=== PATIENT | male | born 1970 | race Caucasian/White ===

== ENCOUNTER 2016-11-03 20:53 | Emergency (ER) | payer MEDICAID, OTHER ==
[2016-11-03 21:00] VITALS: RESP 14
[2016-11-03] MEDS ORDERED: LIDOCAINE 5% 1 EA PATCH TD ONE ×2 (21:45→21:59)
[2016-11-03] MEDS ORDERED: KETOROLAC 30 MG/1 ML SDV IM ONE (21:48)
--- NOTE | 2016-11-03 21:49 | EDPHY ---
H & P Stated Complaint: "sciatica is really kicking my ass" Time Seen by Provider: 11/03/16 21:38 HPI/ROS: Chief complaint: Sciatica History of present illness: This is a 45-year-old male who presents to the emergency department reporting sciatic pain. Patient reports he has suffered from this pain for a long time, he states for the last 6 months constantly although he has had past episodes as well. He states it is persistent and he is essentially getting tired of living with it. He states a friend had similar symptoms and came to the emergency room and got steroid injections and was placed on 6 months of steroids and his problem resolved. He would like the same treatment. He denies new precipitating factors such as trauma. He denies other associated signs or symptoms including no fevers or chills, no neurologic symptoms such as paresthesias, weakness or paralysis or bowel or bladder dysfunction. Again this has been going on for 6 months. Review of systems: A 10 point review of systems was obtained and other than described above was negative - Personal History Current Tetanus/Diphtheria Vaccine: Yes - Medical/Surgical History Hx Asthma: No Hx Chronic Respiratory Disease: No Hx Diabetes: No Hx Cardiac Disease: No Hx Renal Disease: No Hx Cirrhosis: No Hx Alcoholism: No Hx HIV/AIDS: Yes Hx Splenectomy or Spleen Trauma: No Other PMH: PMHx: ABD CANCER, ABD SURG, PE, HIV. PSHx: - Social History Smoking Status: Light smoker - Physical Exam Exam: General Appearance: Alert, nontoxic. Eyes: Pupils equal and round no pallor or injection. ENT, Mouth: Mucous membranes moist. Respiratory: There are no retractions, lungs are clear to auscultation. Cardiovascular: Regular rate and rhythm. Gastrointestinal: Abdomen is soft and non tender, no masses, bowel sounds normal. Neurological: Alert and oriented x4. Cranial nerves 2-12 grossly intact. Strength and sensation intact and symmetrical. Straight leg raise test is negative bilaterally. Patient is ambulating well. Skin: Warm and dry, no rashes. Musculoskeletal: Neck is supple non tender. Extremities are symmetrical, full range of motion. Psychiatric: Patient is oriented X 3, there is no agitation. Constitutional: Initial Vital Signs Temperature (C) 36.7 C 11/03/16 20:54 Heart Rate 93 11/03/16 20:54 Respiratory Rate 14 11/03/16 20:54 Blood Pressure 110/67 11/03/16 20:54 O2 Sat (%) 96 11/03/16 20:54 O2 Delivery Mode Room Air Allergies/Adverse Reactions: cefepime Allergy (Unknown, Verified 04/24/16 15:04) Cephalosporins Allergy (Unknown, Verified 04/24/16 15:04) Unknown cat dander Allergy (Verified 11/03/16 20:57) tramadol Allergy (Verified 04/24/16 15:04) Home Medications: Medication Instructions Recorded NK [No Known Home Meds] 11/03/16 Medical Decision Making ED Course/Re-evaluation: Patient seen under the supervision of my secondary supervising physician Dr. Shreyas Gonzales. Patient presents to the emergency department for what he describes as sciatica. He has had symptoms for 6 months. He is nontoxic. Vital signs are stable. Physical exam is benign including a nonfocal neurologic exam. He is requesting steroid injections and oral steroids. I have discussed we do not do steroid injections in the emergency room and I do not believe oral steroids are indicated at this time. Symptomatic care is discussed, I have offered him Toradol and a lidocaine patch and he has accepted these. He does have a primary care doctor, he has not followed up with her for this problem as of yet. He is asked to follow up with her for further evaluation and care. Return precautions are given. Differential Diagnosis: Included but not limited to sciatica, herniated intervertebral disc, bony fracture, unlikely spinal cord abscess or cauda equina syndrome given nonfocal neurologic exam and length of time symptoms persist - Data Points Medications Given: Discontinued Medications Ketorolac Tromethamine (Toradol) 30 mg IM EDNOW ONE Stop: 11/03/16 21:49 Last Admin: 11/03/16 22:01 Dose: 30 mg Lidocaine (Lidoderm 5%) 1 ea TD EDNOW ONE Stop: 11/03/16 21:46 Last Admin: 11/03/16 22:01 Dose: 1 ea Departure - Departure Disposition: Home, Routine, Self-Care Clinical Impression: Sciatica Qualifiers: Laterality: bilateral Qualified Code(s): M54.31 - Sciatica, right side; M54.32 - Sciatica, left side Condition: Good Instructions: Sciatica (ED) Additional Instructions: Follow-up with your primary care doctor for continued evaluation and care If symptoms worsen or new symptoms develop return to the emergency room for recheck Referrals: Skyla Meneses MD [Primary Care Provider] - As per Instructions
[2016-11-03 22:02] VITALS: BP 130/78; PULSE 80; TEMP 98.4; O2SAT 94
[2016-11-04] MEDS ORDERED: PATCH REMOVAL 1 EA PATCH TD SCH (21:00)
== END 2016-11-03 22:01 | disposition home or self-care (01) ==
DX: M54.31 Sciatica, right side (principal); M54.32 Sciatica, left side; F17.200 Nicotine dependence, unspecified, uncomplicated; B20 Human immunodeficiency virus [HIV] disease; Z85.028 Personal history of other malignant neoplasm of stomach
CPT/HCPCS: J1885

== ENCOUNTER 2016-12-31 17:24 | Emergency (ER) | payer MEDICAID ==
--- NOTE | 2016-12-31 17:42 | EDPHY ---
H & P Stated Complaint: Sore on L knee x 1 wk; past hx MRSA (not recent) HPI/ROS: HPI CHIEF COMPLAINT: Possible left skin knee infection HISTORY OF PRESENT ILLNESS: This patient is a 38-year-old male significant past medical for HIV, tells me he has been off his HIV medication for approximately a year. When I asked him what his CD4 and viral load count is he tells me "I am good man, I am good" patient presents emergency room with a erythema lesion to the left lateral knee. He denies any joint pain or knee pain or swelling. It is localized to the left lateral knee skin region. There is erythema and fluctuance. This appears to be a very small abscess. Denies fever. Denies any pain. States he would like antibiotics and I and D. Past Medical History: HIV unknown viral load or CD4 count off medications for 1 year. History of MRSA infection Past Surgical History: Denies recent surgery Social History: Denies daily use of drugs alcohol tobacco products. Family History: Noncontributory ROS REVIEW OF SYSTEMS: A comprehensive 10 point review of systems is otherwise negative aside from elements mentioned in the history of present illness. Exam Constitutional appears well nontoxic, thin appearing, triage nursing summary reviewed, vital signs reviewed, awake/alert. Eyes normal conjunctivae and sclera, EOMI, PERRLA. HENT normal inspection, atraumatic, moist mucus membranes, no epistaxis, neck supple/ no meningismus, no raccoon eyes. Respiratory clear to auscultation bilaterally, normal breath sounds, no respiratory distress, no wheezing. Cardiovascular rate normal, regular rhythm, no murmur, no edema, distal pulses normal. Gastrointestinal soft, non-tender, no rebound, no guarding, normal bowel sounds, no distension, no pulsatile mass. Genitourinary no CVA tenderness. Musculoskeletal no midline vertebral tenderness, full range of motion, no calf swelling, no tenderness of extremities, no meningismus, good pulses, neurovascularly intact. Skin left lateral knee there is an area of fluctuance 2 cm x 2 cm, no significant warmth, no significant pain with range of motion left knee, this is superficial in the skin. Neurologic awake, alert and oriented x 3, AAOx3, moves all 4 extremities equally, motor intact, sensory intact, CN II-XII intact, normal cerebellar, normal vision, normal speech. Psychiatric normal mood/affect. Heme/Lymph/Immune no lymphadenopathy. Differential Diagnosis: Includes but is not limited to in a particular order MRSA infection, strep infection, staph infection, abscess Medical Decision Making: Plan for this patient I and D, started on Bactrim warm compresses. He understands to return emergency room if there is any worsening symptoms this includes worsening redness, pain, fever questions or concerns. Placed on Bactrim continue Bactrim outpatient. Has cephalosporin allergy. Source: Patient - Personal History Current Tetanus Diphtheria and Acellular Pertussis (TDAP): Yes - Medical/Surgical History Hx Asthma: No Hx Chronic Respiratory Disease: No Hx Diabetes: No Hx Cardiac Disease: No Hx Renal Disease: No Hx Cirrhosis: No Hx Alcoholism: No Hx HIV/AIDS: Yes Hx Splenectomy or Spleen Trauma: No Other PMH: PMHx: Stomach CANCER, ABD SURG, PE, HIV. - Social History Smoking Status: Current every day smoker Constitutional: Initial Vital Signs Temperature (C) 36.8 C 12/31/16 17:26 Heart Rate 85 12/31/16 17:26 Respiratory Rate 18 12/31/16 17:26 Blood Pressure 105/67 12/31/16 17:26 O2 Sat (%) 97 12/31/16 17:26 O2 Delivery Mode Room Air Allergies/Adverse Reactions: cefepime Allergy (Unknown, Verified 12/31/16 17:26) Cephalosporins Allergy (Unknown, Verified 12/31/16 17:26) Unknown tramadol Allergy (Unknown, Verified 12/31/16 17:26) cat dander Allergy (Verified 12/31/16 17:26) Home Medications: Medication Instructions Recorded Sulfamethox/Tmp 800/160 mg 1 tab PO BID@1000,2200 #14 tab 12/31/16 [Bactrim Ds] Departure - Departure Disposition: Home, Routine, Self-Care Clinical Impression: Abscess Condition: Good Instructions: Abscess (ED) Additional Instructions: 1.Warm compresses 3 times a day. 2. Take antibiotics as prescribed. 3. Watch for further signs of worsening infection this includes worsening redness, pain, swelling, fever or any questions or concerns. Referrals: Skyla Meneses MD [Primary Care Provider] - As per Instructions Prescriptions: Sulfamethox/Tmp 800/160 mg [Bactrim Ds] 1 tab PO BID@1000,2200 #14 tab
[2016-12-31] MEDS ORDERED: SULFAMETHOX/TMP 800/160 MG 1 TAB PO ONE (17:47)
[2016-12-31 18:32] VITALS: BP 108/58; PULSE 80; RESP 16; TEMP 98.1; O2SAT 94
== END 2016-12-31 18:32 | disposition home or self-care (01) ==
PROC: 0H9LXZZ Drainage of Left Lower Leg Skin, External Approach (ICD-10-PCS; principal; 2016-12-31)
DX: L02.416 Cutaneous abscess of left lower limb (principal); B20 Human immunodeficiency virus [HIV] disease; F17.200 Nicotine dependence, unspecified, uncomplicated; Z85.028 Personal history of other malignant neoplasm of stomach

== ENCOUNTER 2017-02-04 12:31 | Emergency (ER) | payer MEDICAID ==
[2017-02-04 12:37] VITALS: TEMP 98.6
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
[2017-02-04 17:12] VITALS: BP 128/79; PULSE 81; RESP 16; O2SAT 96
== END 2017-02-04 17:12 | disposition home or self-care (01) ==
DX: S80.12XA Contusion of left lower leg, initial encounter (principal); F17.200 Nicotine dependence, unspecified, uncomplicated; B20 Human immunodeficiency virus [HIV] disease; Z85.028 Personal history of other malignant neoplasm of stomach; V18.0XXA Pedal cycle driver injured in noncollision transport accident in nontraffic accident, initial encounter; Y92.410 Unspecified street and highway as the place of occurrence of the external cause; Y99.8 Other external cause status; Y93.55 Activity, bike riding

== ENCOUNTER 2017-02-09 20:39 | Emergency (ER) | payer MEDICAID ==
[2017-02-09 21:01] VITALS: TEMP 98.2; O2SAT 98
[2017-02-09] MEDS ORDERED: VANCOMYCIN HCL/NORMAL SALINE 250 ML IV ONE (22:30)
--- NOTE | 2017-02-09 22:35 | EDPHY ---
H & P Stated Complaint: rt eye swelling and redness possible bug bite Time Seen by Provider: 02/09/17 22:16 HPI/ROS: HPI The patient presents with right-sided facial pain and swelling which began yesterday. He thought he had a spider bite. He was able to drain it and some pus came out. He was feeling better today. He took a nap this evening and when he awoke the swelling of his right face was worse. He does not have any fevers or chills. He does not have any nausea or vomiting. He has a history of HIV aids, he does not know his last CD4 viral loads and thinks they were checked maybe about a year ago. He has not been on anti-retroviral therapy for about 1 year. He does have a history of MR . He does not have any pain with extraocular movements. REVIEW OF SYSTEMS Constitutional: No fever, no chills. Eyes: No discharge. ENT: No sore throat. Cardiovascular: No chest pain, no palpitations. Respiratory: No cough, no shortness of breath. Gastrointestinal: No abdominal pain, no vomiting. Genitourinary: No hematuria. Musculoskeletal: No back pain. Skin: No rashes. Neurological: No headache. PMHx: HIV/AIDS is followed by infectious disease Soc Hx: Denies IV drug use PHYSICAL General Appearance: Alert, no distress Eyes: Pupils equal and round no pallor or injection, periorbital edema, extraocular movements are full, no proptosis. ENT, Mouth: Right cheek with induration and edema with redness which is tender to palpation throughout the cheek. Respiratory: Breathing comfortably Neurological: A&O, moves all extremities Skin: Warm and dry, no rashes Musculoskeletal: Neck is supple non tender Extremities: symmetrical, full range of motion Psychiatric: Patient is oriented X 3, there is no agitation Source: Patient Exam Limitations: No limitations - Personal History Current Tetanus/Diphtheria Vaccine: Yes - Medical/Surgical History Hx Asthma: No Hx Chronic Respiratory Disease: No Hx Diabetes: No Hx Cardiac Disease: No Hx Renal Disease: No Hx Cirrhosis: No Hx Alcoholism: No Hx HIV/AIDS: Yes Hx Splenectomy or Spleen Trauma: No Other PMH: PMHx: Stomach CANCER, ABD SURG, PE, HIV. - Social History Smoking Status: Current every day smoker Constitutional: Initial Vital Signs Temperature (C) 36.8 C 02/09/17 20:58 Heart Rate 84 02/09/17 20:58 Respiratory Rate 18 02/09/17 20:58 Blood Pressure 106/67 02/09/17 20:58 O2 Sat (%) 98 02/09/17 20:58 O2 Delivery Mode Room Air Allergies/Adverse Reactions: cefepime Allergy (Unknown, Verified 12/31/16 17:26) Cephalosporins Allergy (Unknown, Verified 12/31/16 17:26) Unknown tramadol Allergy (Unknown, Verified 12/31/16 17:26) cat dander Allergy (Verified 12/31/16 17:26) Home Medications: Medication Instructions Recorded Ibuprofen 600 mg PO Q6 #15 tablet 02/04/17 Doxycycline 100 mg Prepack#2 1 btl TAKEHOME EDNOW #1 btl 02/09/17 [Vibramycin 100 mg Prepack#2] Doxycycline Hyclate 100 mg PO BID 10 Days #20 tab 02/09/17 Medical Decision Making Procedures: Bedside skin and soft tissue facial Ultrasound- performed and interpreted by me. Indication: Facial swelling Findings: Cobblestoning without any localized fluid collection, no foreign body visualized Impression: Facial cellulitis without abscess Differential Diagnosis: This is a 46-year-old male with history of HIV AIDS who presents from home with 2 days of right cheek swelling with erythema and pain, getting progressively worse. Differential diagnosis includes facial cellulitis, facial abscess, orbital cellulitis, periorbital cellulitis. Given with no proptosis, pain with extraocular movements, I do not feel imaging with CT scan is required at this time. Because of his history of MR and HIV, I will give him vancomycin IV here. Labs were checked and were relatively unremarkable. Difficult to interpret white blood cell count given his HIV. As I will discharge him with doxycycline for presumed MRSA skin infection. I will ask him to follow up with [facility] or primary care in 1-2 days for a wound check. - Data Points Laboratory Results: Laboratory Results 02/09/17 22:55 02/09/17 22:55 02/09/17 02/09/17 22:55 22:55 WBC 4.25 10^3/uL 10^3/uL (3.80-9.50) RBC 3.91 10^6/uL L 10^6/uL (4.40-6.38) Hgb 12.2 g/dL L g/dL (13.7-17.5) Hct 35.7 % L % (40.0-51.0) MCV 91.3 fL fL (81.5-99.8) MCH 31.2 pg pg (27.9-34.1) MCHC 34.2 g/dL g/dL (32.4-36.7) RDW 14.0 % % (11.5-15.2) Plt Count 144 10^3/uL L 10^3/uL (150-400) MPV 10.5 fL fL (8.7-11.7) Neut % (Auto) 52.5 % % (39.3-74.2) Lymph % (Auto) 27.5 % % (15.0-45.0) [place] % (Auto) 8.7 % % (4.5-13.0) Eos % (Auto) 10.6 % H % (0.6-7.6) Baso % (Auto) 0.5 % % (0.3-1.7) Nucleat RBC Rel Count 0.0 % % (0.0-0.2) Absolute Neuts (auto) 2.23 10^3/uL 10^3/uL (1.70-6.50) Absolute Lymphs (auto) 1.17 10^3/uL 10^3/uL (1.00-3.00) Absolute Monos (auto) 0.37 10^3/uL 10^3/uL (0.30-0.80) Absolute Eos (auto) 0.45 10^3/uL H 10^3/uL (0.03-0.40) Absolute Basos (auto) 0.02 10^3/uL 10^3/uL (0.02-0.10) Absolute Nucleated RBC 0.00 10^3/uL 10^3/uL (0-0.01) Immature Gran % 0.2 % % (0.0-1.1) Immature Gran # 0.01 10^3/uL 10^3/uL (0.00-0.10) Sodium 138 mEq/L mEq/L (134-144) Potassium 3.8 mEq/L mEq/L (3.5-5.2) Chloride 105 mEq/L mEq/L (97-110) Carbon Dioxide 23 mEq/l mEq/l (22-31) Anion Gap 10 mEq/L mEq/L (8-16) BUN 13 mg/dL mg/dL (7-23) Creatinine 0.7 mg/dL mg/dL (0.7-1.3) Estimated GFR > 60 Glucose 84 mg/dL mg/dL (70-100) Calcium 8.7 mg/dL mg/dL (8.5-10.4) Total Bilirubin 0.4 mg/dL mg/dL (0.1-1.4) AST 30 IU/L IU/L (17-59) ALT 30 IU/L IU/L (21-72) Alkaline Phosphatase 83 IU/L IU/L (38-126) Total Protein 7.8 g/dL g/dL (6.3-8.2) Albumin 3.5 g/dL g/dL (3.5-5.0) Medications Given: Discontinued Medications Vancomycin/Sodium Chloride (Vancomycin 1 Gm (Premix)) 250 mls @ 250 mls/hr IV EDNOW ONE PRN Reason: Protocol Stop: 02/09/17 23:29 Last Admin: 02/09/17 22:50 Dose: 250 mls Departure - Departure Disposition: Home, Routine, Self-Care Clinical Impression: Facial cellulitis Condition: Good Instructions: Cellulitis (ED), Doxycycline (By mouth) Additional Instructions: Please return to the emergency room if you develop a fever, worsening redness or swelling of your face or any difficulty looking to the left or right. Otherwise, I would like for you to follow up with your primary care doctor or infectious disease in 1-2 days for a wound check. You should take the doxycycline 100 mg twice a day for 10 days. Referrals: Skyla Meneses MD [Primary Care Provider] - As per Instructions Prescriptions: Doxycycline 100 mg Prepack#2 [Vibramycin 100 mg Prepack#2] 1 btl TAKEHOME EDNOW #1 btl Doxycycline Hyclate 100 mg PO BID 10 Days #20 tab
[2017-02-09 23:08] LABS: % IMMATURE GRANULYOCYTES 0.2 % (0.0-1.1); ABSOLUTE IMMATURE GRANULOCYTES 0.01 10^3/uL (0.00-0.10); ADD DIFF? NO; ADD MORPH? NO; ADD SCAN? NO; ATYPICAL LYMPHOCYTE FLAG 60 (0-99); FRAGMENT RBC FLAG 0 (0-99); HEMATOCRIT 35.7 % (40.0-51.0); HEMOGLOBIN 12.2 g/dL (13.7-17.5); LEFT SHIFT FLG 0 (0-99); LIPEMIA HEMOLYSIS FLAG 90 (0-99); MEAN CELL HEMOGLOBIN 31.2 pg (27.9-34.1); MEAN CELL HEMOGLOBIN CONCENTR. 34.2 g/dL (32.4-36.7); MEAN CELL VOLUME 91.3 fL (81.5-99.8); MEAN PLATELET VOLUME 10.5 fL (8.7-11.7); PLATELET CLUMPS FLAG 10 (0-99); PLATELET COUNT 144 10^3/uL (150-400); RED BLOOD CELL COUNT 3.91 10^6/uL (4.40-6.38)
[2017-02-09 23:19] LABS: ALANINE AMINOTRANSFERASE 30 IU/L (21-72); ALBUMIN 3.5 g/dL (3.5-5.0); ALKALINE PHOSPHATASE 83 IU/L (38-126); ANION GAP 10 mEq/L (8-16); ASPARTATE AMINOTRANSFERASE 30 IU/L (17-59); BILIRUBIN,TOTAL 0.4 mg/dL (0.1-1.4); CALCIUM 8.7 mg/dL (8.5-10.4); CARBON DIOXIDE 23 mEq/l (22-31); CHLORIDE 105 mEq/L (97-110); CREATININE 0.7 mg/dL (0.7-1.3); GLOMERULAR FILTRATION RATE > 60; GLUCOSE 84 mg/dL (70-100); POTASSIUM 3.8 mEq/L (3.5-5.2); SODIUM 138 mEq/L (134-144); TOTAL PROTEIN 7.8 g/dL (6.3-8.2)
[2017-02-09] MEDS ORDERED: DOXYCYCLINE 100 MG PREPACK#2 BTL TAKEHOME ONE (23:44)
[2017-02-10] MEDS ORDERED: DOXYCYCLINE 100 MG PREPACK#2 BTL TAKEHOME ONE (00:38)
[2017-02-10 00:53] VITALS: BP 116/85; PULSE 83; RESP 16
== END 2017-02-10 01:00 | disposition home or self-care (01) ==
DX: L03.211 Cellulitis of face (principal); F17.200 Nicotine dependence, unspecified, uncomplicated; Z85.028 Personal history of other malignant neoplasm of stomach; Z21 Asymptomatic human immunodeficiency virus [HIV] infection status
CPT/HCPCS: 96365; 96366; J3370

== ENCOUNTER 2017-02-21 15:33 | Inpatient (IN) | payer MEDICAID ==
[2017-02-21] MEDS ORDERED: VANCOMYCIN HCL/NORMAL SALINE 250 ML IV ONE (16:17)
[2017-02-21] MEDS ORDERED: NS 1,000 ML IV ONE (16:18)
[2017-02-21 16:48] LABS: % IMMATURE GRANULYOCYTES 0.7 % (0.0-1.1); ABSOLUTE IMMATURE GRANULOCYTES 0.03 10^3/uL (0.00-0.10); ADD DIFF? NO; ADD MORPH? NO; ADD SCAN? NO; ATYPICAL LYMPHOCYTE FLAG 40 (0-99); FRAGMENT RBC FLAG 0 (0-99); HEMOGLOBIN 12.9 g/dL (13.7-17.5); LEFT SHIFT FLG 0 (0-99); LIPEMIA HEMOLYSIS FLAG 90 (0-99); MEAN CELL HEMOGLOBIN 31.3 pg (27.9-34.1); MEAN CELL HEMOGLOBIN CONCENTR. 33.9 g/dL (32.4-36.7); MEAN CELL VOLUME 92.2 fL (81.5-99.8); MEAN PLATELET VOLUME 10.9 fL (8.7-11.7); PLATELET CLUMPS FLAG 0 (0-99); PLATELET COUNT 172 10^3/uL (150-400); RED BLOOD CELL COUNT 4.12 10^6/uL (4.40-6.38); RED CELL DISTRIBUTION WIDTH 14.1 % (11.5-15.2)
[2017-02-21 16:59] LABS: ANION GAP 14 mEq/L (8-16); BILIRUBIN,TOTAL 0.4 mg/dL (0.1-1.4); CALCIUM 9.3 mg/dL (8.5-10.4); CARBON DIOXIDE 22 mEq/l (22-31); CHLORIDE 102 mEq/L (97-110); CREATININE 0.9 mg/dL (0.7-1.3); GLOMERULAR FILTRATION RATE > 60; GLUCOSE 146 mg/dL (70-100); SODIUM 138 mEq/L (134-144)
--- NOTE | 2017-02-21 17:03 | EDPHY ---
H & P Stated Complaint: skin irritation/infection face and legs Time Seen by Provider: 02/21/17 16:05 HPI/ROS: CHIEF COMPLAINT: sent by Infectious Disease for admit HISTORY OF PRESENT ILLNESS: 46-year-old male past medical history of HIV/aids presents to the emergency department sent from the Infectious Disease clinic where patient had an ER follow up visit today. Pt was seen in the ED a few days ago for a facial cellulitis. Pt yesterday squeezed a lesion on his left groin and woke up today with increased pain, swelling, redness. Pt denies fevers or chills. He reports a productive cough x 3 days with shortness of breath. No chest pain. Pt reports multiple lesions to groin and buttocks. Last viral load and CD 4 count over a year ago per patient. He has not taken antivirals x 1 year. Pt reports oral thrush x 5 months. No abdominal pain, nausea, vomiting, diarrhea. Pt uses marijuana daily. Reports no cocaine for over 1 year, denies other drugs aside from taking an occasional adderall. Pt complains of severe right hip pain x 1 year with pain down both legs. No loss of control of his bowel or bladder is, denies saddle anesthesias. REVIEW OF SYSTEMS: A comprehensive 10 point review of systems is otherwise negative aside from elements mentioned in the history of present illness. Source: Patient, RN/MD, Old records Exam Limitations: No limitations - Personal History Current Tetanus/Diphtheria Vaccine: Yes - Medical/Surgical History Hx Asthma: No Hx Chronic Respiratory Disease: No Hx Diabetes: No Hx Cardiac Disease: No Hx Renal Disease: No Hx Cirrhosis: No Hx Alcoholism: No Hx HIV/AIDS: Yes Hx Splenectomy or Spleen Trauma: No Other PMH: PMHx: Stomach CANCER, ABD SURG, PE, HIV. - Social History Smoking Status: Current every day smoker Drug Use: Marijuana - Physical Exam Exam: Physical Exam Gen: Alert and Oriented, NAD HEENT: PERRL, EOMI without tenderness, dry mucous membranes, posterior pharynx with mild erythema, thrush to tongue NECK: no meningismus CV: regular rate and regular rhythm PULM: CTAB, no wheezes ABDOMEN: soft, non tender to palpation, BS present BACK: No CVA tenderness NEURO: Neurologically grossly intact EXTREMITIES: normal appearing SKIN: lesion to right zygoma with erythema and induration. Left groin with swelling, induration, erythema. Multiple lesions to posterior thighs and buttocks. No scrotal swelling, erythema or tenderness PSYCH: answers questions appropriately. Constitutional: Initial Vital Signs Temperature (C) 37 C 02/21/17 15:36 Heart Rate 95 02/21/17 15:36 Respiratory Rate 18 02/21/17 15:36 Blood Pressure 90/56 L 02/21/17 15:36 O2 Sat (%) 94 02/21/17 15:36 O2 Delivery Mode Room Air Allergies/Adverse Reactions: cefepime Allergy (Unknown, Verified 02/21/17 15:35) Cephalosporins Allergy (Unknown, Verified 02/21/17 15:35) Unknown tramadol Allergy (Unknown, Verified 02/21/17 15:35) cat dander Allergy (Verified 02/21/17 15:35) Home Medications: Medication Instructions Recorded NK [No Known Home Meds] 02/21/17 Medical Decision Making - Diagnostics Imaging Results: Imaging Impressions Chest X-Ray 02/21/17 16:57 Impression: 1. Mild peribronchial cuffing in the perihilar region bilaterally. Findings are nonspecific but can be seen with bronchitis, viral process, or reactive airways disease. 2. Stable hyperexpanded lungs. This could be from air trapping versus increased inspiratory effort. ED Course/Re-evaluation: IV established, CBC, chemistry lactic bilirubin cultures and sputum cultures obtained. Chest x-ray and right hip xray ordered. Vancomycin ordered per infectious disease request. I have spoken with the hospitalist about admission , infectious disease also spoke directly with the hospitalist about this patient. Labs are unremarkable, xrays reports are pending upon admission to hospital. - Data Points Laboratory Results: Laboratory Results 02/21/17 16:39 02/21/17 16:39 02/21/17 02/21/17 02/21/17 16:39 16:39 16:39 WBC 4.51 10^3/uL 10^3/uL (3.80-9.50) RBC 4.12 10^6/uL L 10^6/uL (4.40-6.38) Hgb 12.9 g/dL L g/dL (13.7-17.5) Hct 38.0 % L % (40.0-51.0) MCV 92.2 fL fL (81.5-99.8) MCH 31.3 pg pg (27.9-34.1) MCHC 33.9 g/dL g/dL (32.4-36.7) RDW 14.1 % % (11.5-15.2) Plt Count 172 10^3/uL 10^3/uL (150-400) MPV 10.9 fL fL (8.7-11.7) Neut % (Auto) 63.1 % % (39.3-74.2) Lymph % (Auto) 22.0 % % (15.0-45.0) [place] % (Auto) 8.0 % % (4.5-13.0) Eos % (Auto) 5.8 % % (0.6-7.6) Baso % (Auto) 0.4 % % (0.3-1.7) Nucleat RBC Rel Count 0.0 % % (0.0-0.2) Absolute Neuts (auto) 2.85 10^3/uL 10^3/uL (1.70-6.50) Absolute Lymphs (auto) 0.99 10^3/uL L 10^3/uL (1.00-3.00) Absolute Monos (auto) 0.36 10^3/uL 10^3/uL (0.30-0.80) Absolute Eos (auto) 0.26 10^3/uL 10^3/uL (0.03-0.40) Absolute Basos (auto) 0.02 10^3/uL 10^3/uL (0.02-0.10) Absolute Nucleated RBC 0.00 10^3/uL 10^3/uL (0-0.01) Immature Gran % 0.7 % % (0.0-1.1) Immature Gran # 0.03 10^3/uL 10^3/uL (0.00-0.10) PT 12.9 SEC SEC (12.0-15.0) INR 0.98 (0.83-1.16) VBG Lactic Acid Sodium 138 mEq/L mEq/L (134-144) Potassium 4.0 mEq/L mEq/L (3.5-5.2) Chloride 102 mEq/L mEq/L (97-110) Carbon Dioxide 22 mEq/l mEq/l (22-31) Anion Gap 14 mEq/L mEq/L (8-16) BUN 14 mg/dL mg/dL (7-23) Creatinine 0.9 mg/dL mg/dL (0.7-1.3) Estimated GFR > 60 Glucose 146 mg/dL H mg/dL (70-100) Calcium 9.3 mg/dL mg/dL (8.5-10.4) Total Bilirubin 0.4 mg/dL mg/dL (0.1-1.4) 02/21/17 16:39 WBC RBC Hgb Hct MCV MCH MCHC RDW Plt Count MPV Neut % (Auto) Lymph % (Auto) [place] % (Auto) Eos % (Auto) Baso % (Auto) Nucleat RBC Rel Count Absolute Neuts (auto) Absolute Lymphs (auto) Absolute Monos (auto) Absolute Eos (auto) Absolute Basos (auto) Absolute Nucleated RBC Immature Gran % Immature Gran # PT INR VBG Lactic Acid 1.5 mmol/L mmol/L (0.7-2.1) Sodium Potassium Chloride Carbon Dioxide Anion Gap BUN Creatinine Estimated GFR Glucose Calcium Total Bilirubin Medications Given: Discontinued Medications Vancomycin/Sodium Chloride (Vancomycin 1 Gm (Premix)) 250 mls @ 250 mls/hr IV EDNOW ONE PRN Reason: Protocol Stop: 02/21/17 17:16 Last Admin: 02/21/17 17:13 Dose: 250 mls Sodium Chloride (Ns) 1,000 mls @ 0 mls/hr IV EDNOW ONE; Wide Open PRN Reason: Protocol Stop: 02/21/17 16:19 Last Admin: 02/21/17 17:13 Dose: 1,000 mls Departure - Departure Disposition: [facility] Inpatient Acute Clinical Impression: Cellulitis Qualifiers: Site of cellulitis: trunk Site of cellulitis of trunk: groin Qualified Code(s) : L03.314 - Cellulitis of groin Condition: Fair
[2017-02-21 17:05] LABS: INR 0.98 (0.83-1.16); PROTIME(PATIENT) 12.9 SEC (12.0-15.0)
[2017-02-21] MEDS ORDERED: ONDANSETRON 4 MG/2 ML VIAL IVP PRN (17:05)
[2017-02-21] MEDS ORDERED: ONDANSETRON DISINTEGRATING 4 MG TAB PO PRN (17:05)
[2017-02-21 19:01] LABS: ALBUMIN 3.7 g/dL (3.5-5.0); BILIRUBIN,TOTAL 0.4 mg/dL (0.1-1.4); BILIRUBIN-CONJUGATED 0.3 mg/dL (0.0-0.5); BILIRUBIN-UNCONJUGATED 0.1 mg/dL (0.0-1.1); TOTAL PROTEIN 8.1 g/dL (6.3-8.2)
--- NOTE | 2017-02-21 19:35 | GHP ---
[f rep st] HISTORY AND PHYSICAL DATE OF ADMISSION: 02/21/2017 CHIEF COMPLAINT: Left leg, groin cellulitis. 2. AIDS. HISTORY OF PRESENT ILLNESS: A 46-year-old male, followed closely by Infectious Disease as an outpatient with AIDS. Last CD4 count 127 in February 2016 and off HAART therapy for over a year. Presented to his ID clinic and was found to have a cellulitis of his groin/thigh. He has had several abscesses recently; seen in ER 02/09 for facial cellulitis and discharged home on doxycycline. When I asked him today, he denies fevers, chills, or sweats. No nausea, vomiting, or diarrhea. States his face feels better since being on treatment. His groin had just started turning red yesterday. Popped a pimple and groin that was very painful and no pus drained. He has lesions on the back of that thigh, as well as his right thigh. REVIEW OF SYSTEMS: I completed a 10-point review of systems, negative, except as noted in HPI. PAST MEDICAL HISTORY: AIDS. Last CD4 count 126, off HAART meds for over a year. History of stomach cancer, history of pulmonary embolism. PAST SURGICAL HISTORY: None, per his report. SOCIAL HISTORY: Lives in [place]. Smokes a pack a day daily. Drugs: He will do Adderall to help with energy. 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 Alcohol: Drinks a half pint of whiskey daily. Last drink was last night. FAMILY HISTORY: Noncontributory. HOME MEDICATIONS: Doxycycline recently. ALLERGIES: Cefepime, cephalosporins, Tramadol, cat dander. PHYSICAL EXAMINATION: VITAL SIGNS: Temperature 37.4, blood pressure 100/61, heart rate 83, respirations 16, 100% on room air. GENERAL: Disheveled, cachectic. HEENT: Right cheek erythema, with a small, healed-over lesion, mildly warm. No tenderness to palpation. Oropharynx: Poor dentition, but no abscess or ulceration. Positive thrush. CV: Regular rate and rhythm. No murmurs, gallops, or rubs. LUNGS: Clear to auscultation bilaterally. ABDOMEN : Soft, nontender, nondistended. Positive bowel sounds. : No suprapubic tenderness. MUSCULOSKELETAL: Left thigh with erythema almost to the knee. Warm. He has an indurated region in the groin approximately the size of a silver dollar. It is tender. No pus draining now. He has a small pustule on the back of the left thigh, as well as his right that does not appear to be cellulitic. He has multiple excoriations over his legs and multiple cuts over his hands. NEURO: 2 through 12 intact. PSYCH: Alert and oriented x3. Flat affect. LABORATORY DATA: WBC 4, hemoglobin 12, hematocrit 38, platelets 172, lactate 1.5. Coags within normal. Sodium 138, potassium 4.0, chloride 102, carbon dioxide 22, creatinine 0.9, glucose 146. LFTs within normal. Chest x-ray personally reviewed by me. Mild peribronchial cuffing. No opacity. Expanded lungs. Hip x-ray: Hypertrophic spurring around the hips bilaterally. Swelling suspected throughout the scrotum. ASSESSMENT AND PLAN: 1. Left groin abscess/cellulitis: history of multiple abscesses in the past. Check an ultrasound of groin to evaluate if drainage warranted. No e/o Dariusz' s. Start IV vancomycin. ID to consult in the morning. 2. Right facial cellulitis: Improved per patient. IV vancomycin here. 3. Thrush: Nystatin. 4. Acquired immune deficiency syndrome: Last CD4 was 126. He has been off his HAART therapy for over a year. Can check a CD4 count here. 5. Tobacco abuse: Nicotine patch. 6. Alcohol abuse: Drinks a half pint of whiskey a day. No evidence of withdrawal now. His last drink was last night. Will place on [facility]. 7. Normocytic anemia: No active bleeding. H and H are stable. 8. Deep vein thrombosis prophylaxis: Lovenox. 9. Disposition: Patient warrants inpatient admission given acute cellulitis versus abscess, requiring IV antibiotics and Infectious Disease consult. /[id number]/MODL MTDD
[2017-02-21] MEDS: NICOTINE 21 MG/24 HR PATCH TD SCH (22:29)
[2017-02-21] MEDS: ACETAMINOPHEN 325 MG TAB PO PRN (22:31)
[2017-02-21] MEDS: LORazepam 1 MG TAB PO PRN (22:32)
[2017-02-21] MEDS: NYSTATIN SUSP 500000 UNIT/5 ML UDCUP PO SCH (22:32)
[2017-02-22] MEDS: VANCOMYCIN 750 MG in D5W 150 ML IV SCH ×2 (04:26→18:11)
[2017-02-22] MEDS: NYSTATIN SUSP 500000 UNIT/5 ML UDCUP PO SCH (04:48)
[2017-02-22] MEDS: ACETAMINOPHEN 325 MG TAB PO PRN ×3 (04:49→21:31)
[2017-02-22 05:37] LABS: % IMMATURE GRANULYOCYTES 0.4 % (0.0-1.1); ABSOLUTE IMMATURE GRANULOCYTES 0.01 10^3/uL (0.00-0.10); ADD DIFF? NO; ADD MORPH? NO; ADD SCAN? NO; ATYPICAL LYMPHOCYTE FLAG 60 (0-99); FRAGMENT RBC FLAG 0 (0-99); HEMOGLOBIN 11.9 g/dL (13.7-17.5); LEFT SHIFT FLG 0 (0-99); LIPEMIA HEMOLYSIS FLAG 80 (0-99); MEAN CELL HEMOGLOBIN 30.5 pg (27.9-34.1); MEAN CELL HEMOGLOBIN CONCENTR. 33.1 g/dL (32.4-36.7); MEAN CELL VOLUME 92.3 fL (81.5-99.8); PLATELET CLUMPS FLAG 10 (0-99); PLATELET COUNT 147 10^3/uL (150-400); RED CELL DISTRIBUTION WIDTH 14.1 % (11.5-15.2)
[2017-02-22 05:51] LABS: ANION GAP 9 mEq/L (8-16); CALCIUM 8.6 mg/dL (8.5-10.4); CARBON DIOXIDE 22 mEq/l (22-31); CHLORIDE 107 mEq/L (97-110); CREATININE 0.8 mg/dL (0.7-1.3); GLOMERULAR FILTRATION RATE > 60; GLUCOSE 107 mg/dL (70-100); MAGNESIUM 1.9 mg/dL (1.6-2.3); POTASSIUM 3.9 mEq/L (3.5-5.2); SODIUM 138 mEq/L (134-144)
[2017-02-22] MEDS ORDERED: MULTIVITAMINS 1 EACH TAB PO SCH (09:00)
[2017-02-22] MEDS ORDERED: ENOXAPARIN 40 MG/0.4 ML SYR SC SCH (09:00)
[2017-02-22] MEDS ORDERED: FOLIC ACID 1 MG TAB PO SCH (09:00)
[2017-02-22] MEDS: LORazepam 1 MG TAB PO PRN ×2 (09:19→17:32)
[2017-02-22] MEDS: NICOTINE 21 MG/24 HR PATCH TD SCH (09:20)
[2017-02-22] MEDS ORDERED: FLUCONAZOLE 100 MG TAB PO SCH (10:45)
--- NOTE | 2017-02-22 15:58 | HOSPPROG ---
Hospitalist Progress Note Assessment/Plan: 46 yo M w aids here w inguinal cellulitis cellulitis: on vanc no abscess on imaging aids: off DHALIWAL pcp proph to start in AM hip pain: demanding explanation not dislocate (full rom) suspect arthritis symptomatic relief proph: lmwh Subjective: expletive laden speech. case d/w dr john Objective: Vital Signs Temp Pulse Resp BP Pulse Ox 36.8 C 73 16 98/56 L 97 02/22/17 12:00 02/22/17 12:00 02/22/17 12:00 02/22/17 12:00 02/22/17 12:00 Laboratory Results 02/22/17 05:14 02/22/17 05:14 PT 12.9 SEC (12.0-15.0) 02/21/17 16:39 INR 0.98 (0.83-1.16) 02/21/17 16:39 - Physical Exam Constitutional: no apparent distress, appears nourished Eyes: PERRL, anicteric sclera Ears, Nose, Mouth, Throat: moist mucous membranes, hearing normal Cardiovascular: regular rate and rhythym, no murmur, rub, or gallop Respiratory: no respiratory distress, no rales or rhonchi Gastrointestinal: normoactive bowel sounds, soft, non-tender abdomen Genitourinary: no bladder fullness, caldwell in urethra Skin: warm, other (groin w erythema, 2cm lad) Musculoskeletal: full muscle strength Neurologic: other (neg R leg straight leg raise) Lymph, Heme, Immunologic: no cervical LAD ICD10 Worksheet Patient Problems: Problems Problem Status Onset Cellulitis Acute Acquired immune deficiency syndrome (AIDS) Active Candidiasis of the esophagus Active Pneumocystosis jiroveci pneumonia Active Substance abuse Active Methicillin resistant Staphylococcus aureus infection Acute ~12/31/16 Sciatica Acute
[2017-02-22 16:04] VITALS: O2SAT 95
[2017-02-22] MEDS ORDERED: GADOBUTROL 10 ML VIAL IVP ONE (16:49)
--- NOTE | 2017-02-22 16:53 | PCMIDPN ---
Assessment/Plan: Assessment/Plan: * Left inguinal cellulitis with recent cultures positive for MRSA: Clinically improved with vancomycin. Cultures in December with MRSA and multiple skin lesions consistent with MRSA skin and soft tissue infection. Cellulitis however more suggestive of Streptococcus given lymphangitis ache element over thigh. Ultrasound without drainable focus. Continue vancomycin and follow clinical examination. Of note, vancomycin trough does not represent true trough based on timing. * AIDS: Has been off anti-retroviral therapy due to absence from care. Will be critical to his ongoing care with last CD4 count below 200. Have repeated CD4 and viral load. Plan to initiate anti-retroviral therapy in follow-up as an outpatient when seen for ongoing care. Plan to begin Bactrim prophylaxis in a.m.. This may also have benefit in terms of skin and soft tissue infection. * Oropharyngeal candidiasis: Did have some odynophagia consistent with possible esophagitis. Will discontinue nystatin and begin fluconazole. * Pancytopenia: Likely related to HIV. Will obtain AFB blood culture to ensure no evidence of disseminated MAC. * Right-sided radicular pain: Pain more compatible with radicular pain and then pain emanating from hip joint. Will repeat MRI of lumbosacral spine to ensure no evidence of opportunistic process contributing to patient's radicular pain. Previously had findings consistent with significant DJD. Time spent, greater than 35 minutes, of which greater than half was spent in education/counseling/coordination of care related to left inguinal cellulitis in the setting of AIDS. 02/22/17 16:49 02/22/17 16:55 Subjective: Less pain in left inguinal region. Complains of right-sided pain which radiates from hip to medial thigh down leg to foot. Objective: Vital Signs Temp Pulse Resp BP Pulse Ox 36.8 C 82 14 103/67 95 02/22/17 16:00 02/22/17 16:00 02/22/17 16:00 02/22/17 16:00 02/22/17 16:00 Laboratory Results 02/22/17 05:14 02/22/17 05:14 Vancomycin # 1 Blood cultures x2 no growth Laboratory Tests 02/22/17 10:25 Vancomycin Trough 8.3 Please note that this does not represent true trough based on timing of lab assessment - Physical Exam General Appearance: alert, no apparent distress, cachetic EENT: No scleral icterus, No thrush, No conjunctival petechiae Respiratory: lungs clear, No respiratory distress Cardiac/Chest: regular rate, rhythm, No systolic murmur Extremities: inflammation (Left thigh with faint erythema, warmth and tenderness which is less prominent than yesterday) Abdomen: tender (Tender in left inguinal region without focal fluctuance; erythema decreased versus yesterday), No distended Skin: other (Multiple healing furuncle or lesions with most prominent over left buttock) Neuro/Psych: No confused ICD10 Worksheet Patient Problems: Problems Problem Status Onset Cellulitis Acute Acquired immune deficiency syndrome (AIDS) Active Candidiasis of the esophagus Active Pneumocystosis jiroveci pneumonia Active Substance abuse Active Methicillin resistant Staphylococcus aureus infection Acute ~12/31/16 Sciatica Acute
--- NOTE | 2017-02-22 17:30 | ASMTCMCOM ---
CM Note CM Note Notes: Dc needs unclear, pt w/hx of ETOH and AIDS (off retrovirals for a year), in w/ groin cellulitis, CM w/f Date Signed: 02/22/2017 05:30 PM Electronically Signed By:Brittany Dempsey RN
[2017-02-22 20:36] VITALS: BP 116/68; PULSE 87; RESP 16; TEMP 98.6
[2017-02-22] MEDS ORDERED: DIAZEPAM 5 MG TAB PO PRN (21:06)
[2017-02-23] MEDS ORDERED: VANCOMYCIN 750 MG in D5W 150 ML IV SCH (06:00)
--- NOTE | 2017-02-23 10:09 | ASDISCHSUM ---
Discharge Information Plan Status:Home with No Needs Medically Cleared to Leave: Discharge Date:02/22/2017 11:30 PM CM D/C Disposition:Against Medical Advice ADT D/C Disposition:Against Medical Advice Projected Discharge Date:02/22/2017 11:30 PM Transportation at D/C:Self Discharge Delay Reason: Follow-Up Date:02/22/2017 11:30 PM Discharge Slot: Final Diagnosis: Placement Information Patient Contact Information Contact Name:RITA Relationship: Address:[address] [facility] [address] Work Phone: City:[facility] Phone: State/Zip Code:[place] [address] Email: Financial Information Financial Class: Primary Plan Desc:[employer] [place] Primary Plan Number:[id number] Secondary Plan Desc: Secondary Plan Number: Assessment Information [facility] CM Progress Note CM Note CM Note Notes: Dc needs unclear, pt w/hx of ETOH and AIDS (off retrovirals for a year), in w/ groin cellulitis, CM w/f Date Signed: 02/22/2017 05:30 PM Electronically Signed By:Brittany Dempsey RN Intervention Information
--- NOTE | 2017-02-23 12:09 | GDS ---
[f rep st] DISCHARGE SUMMARY The patient left against medical advice overnight between the and 23 of February for unclear reasons. This to serve as a discharge summary. /[id number]/MODL
[2017-02-24] MEDS ORDERED: THIAMINE HCL 100 MG TAB PO SCH (09:00)
== END 2017-02-22 23:30 | disposition left against medical advice (07) | DRG 602 ==
LOC: F3E 18:43
PROVIDERS: ADMIT Internal Medicine; ATTEND Internal Medicine
DX: L03.314 Cellulitis of groin (principal); L03.211 Cellulitis of face; B20 Human immunodeficiency virus [HIV] disease; Z86.711 Personal history of pulmonary embolism; Z72.0 Tobacco use; F10.10 Alcohol abuse, uncomplicated; D64.9 Anemia, unspecified; B37.0 Candidal stomatitis; M25.551 Pain in right hip; D61.818 Other pancytopenia
CPT/HCPCS: A9585; J1650; J3370

== ENCOUNTER 2017-04-14 11:14 | Inpatient (IN) | payer OTHER, MEDICAID ==
--- NOTE | 2017-04-14 12:32 | EDPHY ---
H & P Stated Complaint: LEFT KNEE REDNESS AND PAIN - Personal History Current Tetanus/Diphtheria Vaccine: Unsure Current Tetanus Diphtheria and Acellular Pertussis (TDAP): Unsure - Medical/Surgical History Hx Asthma: No Hx Chronic Respiratory Disease: No Hx Diabetes: No Hx Cardiac Disease: No Hx Renal Disease: No Hx Cirrhosis: No Hx Alcoholism: No Hx HIV/AIDS: Yes Hx Splenectomy or Spleen Trauma: No Other PMH: PMHx: Stomach CANCER, ABD SURG, PE, HIV. - Social History Smoking Status: Current every day smoker Time Seen by Provider: 04/14/17 12:17 HPI/ROS: CHIEF COMPLAINT: "My knee is swollen I have got something up in my crotch " HISTORY OF PRESENT ILLNESS: 46-year-old male history of AIDS, off anti- retroviral therapy due to absence from care, history of MRSA cellulitis in the past, history of hospitalization for MRSA cellulitis and leaving against medical advice, presents to the ER complaining of left medial knee erythema, swelling, pain, discharge as well as erythema discoloration pain to his left inguinal region. Denies trauma. Denies known bites. Tetanus is up-to-date. No fever no chills. No flu-like symptoms PRIMARY CARE PROVIDER: no primary care REVIEW OF SYSTEMS: A ten point review of systems was performed and is negative with the exception of the items mentioned in the HPI PAST MEDICAL & SURGICAL HISTORY: Aids. No anti-retroviral therapy did absence fromcare. SOCIAL HISTORY: nonsmoker. PHYSICAL EXAM (Prior to examination, patient consented to physical exam, hands were washed and my usual and customary physical exam procedures followed) 1) GENERAL: Well-developed, well-nourished, alert and oriented. Appears to be in no acute distress. 2) HEAD: Normocephalic, atraumatic 3) HEENT: Pupils equal, round, reactive to light bilaterally. Sclera anicteric. 4) NECK: Full range of motion, no meningeal signs. 5) LUNGS: Clear auscultation bilaterally, no wheezes, no rhonchi, no retractions. 6) HEART: Regular rate and rhythm, no murmur, no heave, no gallop. 7) ABDOMEN: No guarding, no rebound, no focal tenderness, negative McBurney's, negative Xavier's, negative Rovsing's, negative peritoneal sign, 8) MUSCULOSKELETAL: Left lower extremity: Left medial knee erythema, induration, tenderness, draining puncture wound draining purulent material. No lymphangitic streaking. Full range of motion left knee albeit with some pain. Bilateral inguinal region and perineum subacute nontender lesions. No evidence of Dariusz's gangrene to the scrotum. Moving all extremities, no focal areas of tenderness, no obvious trauma. No peripheral edema or discoloration. 9) BACK: No CVA tenderness, no midline vertebral tenderness, no fluctuance, no step-off, no obvious trauma, no visual or palpable abnormality. 10) SKIN: No rash, no petechiae. 11) Psychiatric: Patient is oriented X 3, there is no agitation. DIFFERENTIAL DIAGNOSIS: in no particular include but limited to septic arthritis, cellulitis left lower extremity, sepsis (Dhiraj,Milena Paula) Constitutional: Initial Vital Signs Temperature (C) 37.2 C 04/14/17 11:19 Heart Rate 85 04/14/17 11:19 Respiratory Rate 16 04/14/17 11:19 Blood Pressure 113/67 04/14/17 11:19 O2 Sat (%) 96 04/14/17 11:19 O2 Delivery Mode Room Air Allergies/Adverse Reactions: cefepime Allergy (Unknown, Verified 02/21/17 15:35) Cephalosporins Allergy (Unknown, Verified 02/21/17 15:35) Unknown tramadol Allergy (Unknown, Verified 02/21/17 15:35) cat dander Allergy (Verified 02/21/17 15:35) Home Medications: Medication Instructions Recorded Azithromycin [Zithromax] 1,200 mg PO Q7D #28 tab 04/19/17 Clindamycin HCl [Clindamycin] 300 mg PO TID #32 cap 04/19/17 Gabapentin [Neurontin 300 MG (*)] 300 mg PO TID #90 cap 04/19/17 HYDROmorphone HCL [Dilaudid 4 mg 4 mg PO Q4HRS PRN #40 tab 04/19/17 (*)] Sulfamethox/Tmp 800/160 mg 1 ea PO DAILY #30 tab 04/19/17 [Bactrim DS] levOFLOXACIN [Levofloxacin] 750 mg PO DAILY #10 tablet 04/19/17 oxyCODONE IR [Oxycodone Ir (*)] 5 - 10 mg PO Q6 PRN #40 tab 04/19/17 Medical Decision Making - Diagnostics Imaging Results: images reviewed by myself (Milena Hearn) ED Course/Re-evaluation: 12:57 p.m.: Patient was evaluated by myself and case discussed with secondary supervising physician Dr. Landy Bennett. Plan will be more than likely admission. Patient has a draining area on the medial aspect left knee. Upon further needle aspiration of this area this was negative. Ultrasound confirms no focal collection of fluid, no definitive abscess. Recommended admission which patient is agreeable with. Noted to have a lactate of 2.4, severe sepsis declared, IV fluids given, a repeat lactate will be obtained and started on vancomycin which he has responded to well in the past for his prior cutaneous MRSA history. 1:42 p.m.: Consultation with hospitalist Rosanna, admit to Dr. Almaraz. Doubt necrotizing fasciitis. Doubt Dariusz's gangrene. (Milena Hearn) Other Provider: I evaluated and participated in the management of the patient. My co-signature indicates that I have reviewed this chart and I agree with thefindings and plan of care as documented. My personal H&P findings include: 46 year old male with AIDS and history of MRSA presenting with cellulitis of left knee. Afebrile on arrival. Not tachycardic. Left lower extremity: Left medial knee has erythema, a draining puncture wound , and tendernss with induration. FROM at knee joint itself without pain. Needle aspiration of draining area did not recover purulence. US of knee to evaluate for abscess was negative. Labs with normal WBC, elevated lactate. Sepsis evaluation note: The patient presents to the ED with cellulitis identified as an acute infection. The patient did not meet sepsis criteria ( normal temperature, normal heart rate, normal RR, normal WBC) although he did have an elevated lactic acid and from that standpoint met criteria for severe sepsis. NS 30cc/kg ordered and repeat lactic acid was 0.9. Given IV antibiotics in ED. Blood cultures drawn. (Landy Bennett) - Data Points Laboratory Results: Laboratory Results 04/14/17 13:00 04/14/17 13:00 Medications Given: Discontinued Medications Acetaminophen (Tylenol) 650 mg PO Q4HRS PRN PRN Reason: Pain, Mild/Fever, Can Take PO Stop: 10/11/17 14:32 Last Admin: 04/17/17 02:40 Dose: 650 mg Azithromycin (Zithromax) 1,200 mg PO Q7D KYRIE PRN Reason: Protocol Stop: 05/15/17 15:14 Last Admin: 04/15/17 16:07 Dose: 1,200 mg Enoxaparin Sodium (Lovenox) 40 mg SC DAILY [facility] Stop: 10/12/17 08:59 Last Admin: 04/19/17 08:31 Dose: 40 mg Gabapentin (Neurontin) 300 mg PO TID [facility] Stop: 10/11/17 15:59 Last Admin: 04/19/17 08:30 Dose: 300 mg Hydromorphone HCl (Dilaudid) 4 mg PO Q4HRS PRN PRN Reason: Pain, Severe Able to Take PO Stop: 04/25/17 10:03 Last Admin: 04/19/17 08:31 Dose: 4 mg Vancomycin/Sodium Chloride (Vancomycin 1 Gm (Premix)) 250 mls @ 250 mls/hr IV EDNOW ONE PRN Reason: Protocol Stop: 04/14/17 13:32 Last Admin: 04/14/17 13:47 Dose: 250 mls Sodium Chloride (Ns) 1,900 mls @ 3,800 mls/hr 30 ml/kg infuse over 30 min ( 1900 ml) IV EDNOW ONE PRN Reason: Protocol Stop: 04/14/17 13:51 Last Admin: 04/14/17 13:44 Dose: 1,900 mls Sodium Chloride (Ns) 1,000 mls @ 75 mls/hr IV CONT [facility] Stop: 10/11/17 14:44 Last Admin: 04/17/17 18:30 Dose: 1,000 mls Vancomycin HCl 750 mg/ (Dextrose) 150 mls @ 150 mls/hr IV 0100,1300 [facility] Stop: 05/15/17 00:59 Last Admin: 04/15/17 00:24 Dose: 150 mls Vancomycin HCl 1 gm/ Sodium (Chloride) 250 mls @ 250 mls/hr IV Q12H [facility] Stop: 05/15/17 11:59 Last Admin: 04/17/17 13:16 Dose: 250 mls Vancomycin HCl 1 gm/ Dextrose 250 mls @ 250 mls/hr IV Q12H [facility] Stop: 05/15/17 11:59 Last Admin: 04/19/17 11:45 Dose: Not Given Ibuprofen (Motrin) 400 mg PO Q4H PRN PRN Reason: PAIN. Stop: 10/12/17 17:07 Last Admin: 04/19/17 05:26 Dose: 400 mg Influenza Virus Vaccine Quadrival (Fluarix Quad [id number]) 0.5 ml IM .ONCE ONE Stop: 04/17/17 14:01 Last Admin: 04/17/17 15:31 Dose: 0.5 ml Lorazepam (Ativan Injection) 1 - 2 mg IVP Q3HRS PRN PRN Reason: Anxiety, Unable to Take PO Stop: 10/11/17 15:29 Last Admin: 04/15/17 01:31 Dose: 2 mg Morphine Sulfate (Morphine) 1 - 2 mg IVP Q1HR PRN PRN Reason: Pain, Severe Unable to Take PO Stop: 04/24/17 14:32 Last Admin: 04/14/17 15:13 Dose: 2 mg Morphine Sulfate (Morphine) 1 - 4 mg IVP Q1HR PRN PRN Reason: Pain, Severe Unable to Take PO Stop: 04/24/17 14:32 Last Admin: 04/14/17 21:54 Dose: 4 mg Nicotine (Nicoderm Cq) 21 mg TD DAILY [facility] Stop: 10/12/17 12:59 Last Admin: 04/19/17 08:33 Dose: Not Given Nystatin (Mycostatin Oral Liquid) 500,000 unit PO QID [facility] PRN Reason: Protocol Stop: 05/15/17 15:59 Last Admin: 04/19/17 11:29 Dose: 500,000 unit Oxycodone HCl (Oxycodone Ir) 5 - 10 mg PO Q3HRS PRN PRN Reason: Pain, Severe Able to Take PO Stop: 04/24/17 14:32 Last Admin: 04/17/17 12:11 Dose: 10 mg Oxycodone HCl (Oxycodone Ir) 5 - 10 mg PO Q6 PRN PRN Reason: Pain, Severe Able to Take PO Stop: 04/24/17 14:32 Last Admin: 04/19/17 13:00 Dose: 10 mg Trimethoprim/Sulfamethoxazole (Bactrim Ds) 1 ea PO DAILY [facility] PRN Reason: Protocol Stop: 05/15/17 15:14 Last Admin: 04/19/17 08:30 Dose: 1 ea Departure - Departure Disposition: [facility] Inpatient Acute Clinical Impression: Methicillin resistant Staphylococcus aureus infection, Left leg cellulitis, Acquired immune deficiency syndrome (AIDS) Condition: Good
[2017-04-14] MEDS ORDERED: VANCOMYCIN HCL/NORMAL SALINE 250 ML IV ONE (12:33)
[2017-04-14 13:15] LABS: % IMMATURE GRANULYOCYTES 0.4 % (0.0-1.1); ABSOLUTE IMMATURE GRANULOCYTES 0.03 10^3/uL (0.00-0.10); ADD DIFF? NO; ADD MORPH? NO; ADD SCAN? NO; ATYPICAL LYMPHOCYTE FLAG 30 (0-99); FRAGMENT RBC FLAG 0 (0-99); HEMOGLOBIN 12.6 g/dL (13.7-17.5); LEFT SHIFT FLG 0 (0-99); LIPEMIA HEMOLYSIS FLAG 90 (0-99); MEAN CELL HEMOGLOBIN 31.3 pg (27.9-34.1); MEAN CELL HEMOGLOBIN CONCENTR. 34.1 g/dL (32.4-36.7); MEAN CELL VOLUME 91.8 fL (81.5-99.8); MEAN PLATELET VOLUME 10.6 fL (8.7-11.7); PLATELET CLUMPS FLAG 10 (0-99); PLATELET COUNT 155 10^3/uL (150-400); RED BLOOD CELL COUNT 4.03 10^6/uL (4.40-6.38); RED CELL DISTRIBUTION WIDTH 13.6 % (11.5-15.2)
[2017-04-14] MEDS ORDERED: NS 1,900 ML IV ONE (13:22)
[2017-04-14 13:26] LABS: INR 1.01 (0.83-1.16); PROTIME(PATIENT) 13.2 SEC (12.0-15.0)
[2017-04-14 13:27] LABS: APTT 28.9 SEC (23.0-38.0)
[2017-04-14 13:33] LABS: ANION GAP 18 mEq/L (8-16); BILIRUBIN,TOTAL 0.3 mg/dL (0.1-1.4); CALCIUM 9.2 mg/dL (8.5-10.4); CARBON DIOXIDE 22 mEq/l (22-31); CHLORIDE 99 mEq/L (97-110); CREATININE 1.3 mg/dL (0.7-1.3); GLOMERULAR FILTRATION RATE 59; GLUCOSE 71 mg/dL (70-100); POTASSIUM 3.9 mEq/L (3.5-5.2); SODIUM 139 mEq/L (134-144)
[2017-04-14 14:11] LABS: LACGHOST ORDER
[2017-04-14] MEDS ORDERED: ONDANSETRON 4 MG/2 ML VIAL IVP PRN (14:33)
[2017-04-14] MEDS ORDERED: ONDANSETRON DISINTEGRATING 4 MG TAB PO PRN (14:33)
--- NOTE | 2017-04-14 15:28 | PDGENHP ---
History and Physical - Chief Complaint Left knee redness and pain - History of Present Illness 46-year-old male history of AIDS, off anti-retroviral therapy due to absence from care, history of MRSA cellulitis in the past, history of hospitalization for MRSA cellulitis and leaving against medical advice, p/w left medial knee erythema, swelling, pain, discharge as well as erythema discoloration pain to his left inguinal region. Denies trauma. Denies known bites. Tetanus is up-to -date. No fever no chills. No flu-like symptoms Serum Lactate elevated in the ER but repeat ok. Sepsis protocol followed initially. Started on Vancomycin. VS stable overall. Also reports of right thigh mass and redness Afebrile. PAST MEDICAL & SURGICAL HISTORY: Aids. No anti-retroviral therapy did absence fromcare. SOCIAL HISTORY: nonsmoker. Drinks ETOH regularly. Last drink 2 days ago. NO WD sx's FMx: DC History Information - Allergies/Home Medication List Allergies/Adverse Reactions: cefepime Allergy (Unknown, Verified 02/21/17 15:35) Cephalosporins Allergy (Unknown, Verified 02/21/17 15:35) Unknown tramadol Allergy (Unknown, Verified 02/21/17 15:35) cat dander Allergy (Verified 02/21/17 15:35) Home Medications: NK [No Known Home Meds] 02/21/17 [Last Taken Unknown] I have personally reviewed and updated: medical history, social history - Social History Smoking Status: Current every day smoker Review of Systems Review of Systems: ROS: 10pt was reviewed & negative except for what was stated in HPI & below Physical Exam Physical Exam: Temp Pulse Resp BP Pulse Ox 37.7 C 85 16 114/67 95 04/14/17 15:00 04/14/17 15:00 04/14/17 15:00 04/14/17 15:00 04/14/17 15:00 Constitutional: no apparent distress Eyes: PERRL, EOMI Ears, Nose, Mouth, Throat: moist mucous membranes, hearing normal Cardiovascular: regular rate and rhythym, no murmur, rub, or gallop Respiratory: no respiratory distress, no rales or rhonchi, clear to auscultation Gastrointestinal: normoactive bowel sounds, soft, non-tender abdomen Skin: erythema (induration and swelling involving right knee thigh and lower leg. area of induartion right thigh/buttock) Musculoskeletal: full muscle strength Neurologic: AAOx3 Psychiatric: interacting appropriately, not anxious, not encephalopathic Lab Data & Imaging Review 04/14/17 13:00 04/14/17 13:00 WBC 7.84 10^3/uL (3.80-9.50) 04/14/17 13:00 RBC 4.03 10^6/uL (4.40-6.38) L 04/14/17 13:00 Hgb 12.6 g/dL (13.7-17.5) L 04/14/17 13:00 Hct 37.0 % (40.0-51.0) L 04/14/17 13:00 MCV 91.8 fL (81.5-99.8) 04/14/17 13:00 MCH 31.3 pg (27.9-34.1) 04/14/17 13:00 MCHC 34.1 g/dL (32.4-36.7) 04/14/17 13:00 RDW 13.6 % (11.5-15.2) 04/14/17 13:00 Plt Count 155 10^3/uL (150-400) 04/14/17 13:00 MPV 10.6 fL (8.7-11.7) 04/14/17 13:00 Neut % (Auto) 81.7 % (39.3-74.2) H 04/14/17 13:00 Lymph % (Auto) 11.5 % (15.0-45.0) L 04/14/17 13:00 [place] % (Auto) 4.3 % (4.5-13.0) L 04/14/17 13:00 Eos % (Auto) 1.8 % (0.6-7.6) 04/14/17 13:00 Baso % (Auto) 0.3 % (0.3-1.7) 04/14/17 13:00 Nucleat RBC Rel Count 0.0 % (0.0-0.2) 04/14/17 13:00 Absolute Neuts (auto) 6.41 10^3/uL (1.70-6.50) 04/14/17 13:00 Absolute Lymphs (auto) 0.90 10^3/uL (1.00-3.00) L 04/14/17 13:00 Absolute Monos (auto) 0.34 10^3/uL (0.30-0.80) 04/14/17 13:00 Absolute Eos (auto) 0.14 10^3/uL (0.03-0.40) 04/14/17 13:00 Absolute Basos (auto) 0.02 10^3/uL (0.02-0.10) 04/14/17 13:00 Absolute Nucleated RBC 0.00 10^3/uL (0-0.01) 04/14/17 13:00 Immature Gran % 0.4 % (0.0-1.1) 04/14/17 13:00 Immature Gran # 0.03 10^3/uL (0.00-0.10) 04/14/17 13:00 PT 13.2 SEC (12.0-15.0) 04/14/17 13:00 INR 1.01 (0.83-1.16) 04/14/17 13:00 APTT 28.9 SEC (23.0-38.0) 04/14/17 13:00 VBG Lactic Acid 1.1 mmol/L (0.7-2.1) 04/14/17 14:35 Sodium 139 mEq/L (134-144) 04/14/17 13:00 Potassium 3.9 mEq/L (3.5-5.2) 04/14/17 13:00 Chloride 99 mEq/L (97-110) 04/14/17 13:00 Carbon Dioxide 22 mEq/l (22-31) 04/14/17 13:00 Anion Gap 18 mEq/L (8-16) H 04/14/17 13:00 BUN 24 mg/dL (7-23) H 04/14/17 13:00 Creatinine 1.3 mg/dL (0.7-1.3) 04/14/17 13:00 Estimated GFR 59 04/14/17 13:00 Glucose 71 mg/dL (70-100) 04/14/17 13:00 Calcium 9.2 mg/dL (8.5-10.4) 04/14/17 13:00 Total Bilirubin 0.3 mg/dL (0.1-1.4) 04/14/17 13:00 Assessment & Plan Assessment: #Right Knee Cellulitis #Hx of MRSA cellulits #Right thigh pustule/abscess #AIDS #Hx of ETOH, not actively in WD -Hx of PE, not on AC Plan -Admit -Vancomycin -ID consult -IV fluids -May need I&D of right thigh pustule/abscess -IV fluids -Pain mgmt -Benzos PRN -Lovenox
[2017-04-14] MEDS ORDERED: LORazepam 2 MG/ML INJ IVP PRN (15:30)
[2017-04-14 15:32] LABS: HEMATOCRIT 37.5 % (40.0-51.0)
[2017-04-14] MEDS: GABAPENTIN 300 MG CAP PO SCH ×2 (16:12→21:54)
--- NOTE | 2017-04-14 16:27 | ASMTCMCOM ---
CM Note CM Note Notes: Pt has been admitted with L knee redness and pain. Hx AIDS, off antiretroviral therapy due to absence of care. Also has hx of MRSA cellulitis. Frequent etoh. ID consult requested, vancomycin started. CM will follow for any d/c needs. Date Signed: 04/14/2017 04:27 PM Electronically Signed By:RICKEY Parnell
[2017-04-14] MEDS: NS 1,000 ML IV SCH (16:44)
--- NOTE | 2017-04-14 18:41 | PDMN ---
Medical Necessity Medical necessity: C/M review: Pt. meets INPT criteria under MCG M-70 Cellulitis; Acute and persistently worsening right knee cellulitis induration and swelling involving right knee, thigh, and lower leg, area of induration right thigh/buttock), right thigh pustule/abscess, requiring planned Infectious disease consult, possible I&D right thigh pustule/abscess ongoing IV Vancomycin Q 12 hrs., IV fluids, acute inpt OT, comorbid AIDS off anti- retroviral therapy due to absence from care, hx MRSA cellulitis, hospitalization for MRSA cellulitis and leaving AMA, hx of alcoholism. MD anticipates > 2 MN LOS for ongoing med nec for eval and TX of above.
[2017-04-15] MEDS ORDERED: VANCOMYCIN 750 MG in D5W 150 ML IV SCH (01:00)
[2017-04-15 05:44] LABS: % IMMATURE GRANULYOCYTES 0.5 % (0.0-1.1); ABSOLUTE IMMATURE GRANULOCYTES 0.03 10^3/uL (0.00-0.10); ADD DIFF? NO; ADD MORPH? NO; ATYPICAL LYMPHOCYTE FLAG 10 (0-99); FRAGMENT RBC FLAG 0 (0-99); HEMATOCRIT 31.8 % (40.0-51.0); HEMOGLOBIN 10.6 g/dL (13.7-17.5); LEFT SHIFT FLG 0 (0-99); LIPEMIA HEMOLYSIS FLAG 80 (0-99); MEAN CELL HEMOGLOBIN CONCENTR. 33.3 g/dL (32.4-36.7); MEAN PLATELET VOLUME 10.9 fL (8.7-11.7); PLATELET COUNT 131 10^3/uL (150-400); RED BLOOD CELL COUNT 3.42 10^6/uL (4.40-6.38); RED CELL DISTRIBUTION WIDTH 13.6 % (11.5-15.2)
[2017-04-15 05:45] LABS: ADD SCAN? NO; PLATELET CLUMPS FLAG 0 (0-99)
[2017-04-15 05:59] LABS: ANION GAP 8 mEq/L (8-16); CALCIUM 7.8 mg/dL (8.5-10.4); CARBON DIOXIDE 23 mEq/l (22-31); CHLORIDE 104 mEq/L (97-110); CREATININE 0.9 mg/dL (0.7-1.3); GLOMERULAR FILTRATION RATE > 60; GLUCOSE 79 mg/dL (70-100); MAGNESIUM 1.7 mg/dL (1.6-2.3); POTASSIUM 3.9 mEq/L (3.5-5.2); SODIUM 135 mEq/L (134-144)
[2017-04-15] MEDS: ENOXAPARIN 40 MG/0.4 ML SYR SC SCH (09:45)
[2017-04-15] MEDS: GABAPENTIN 300 MG CAP PO SCH ×3 (09:45→21:44)
[2017-04-15] MEDS: oxyCODONE IR 5 MG TAB PO PRN (10:04)
[2017-04-15] MEDS: VANCOMYCIN 1 GM in NS 250 ML IV SCH (11:32)
[2017-04-15] MEDS: HYDROmorphONE/DILAUDID 4 MG TAB PO PRN ×3 (12:48→21:44)
[2017-04-15] MEDS ORDERED: NICOTINE POLACRILEX 2 MG GUM B PRN (12:49)
[2017-04-15] MEDS: NICOTINE 21 MG/24 HR PATCH TD SCH (14:11)
--- NOTE | 2017-04-15 15:10 | PCMIDPN ---
Assessment/Plan: Assessment/Plan: 1. Streptococcus bacteremia likely secondary to left knee cellulitis with possible abscess vs hematoma: - Currently on Vanco. - will continue for now. check trough tomorrow -Xray with no joint effusion. USG with small fluid collection anterior knee ( 15mm X 8mm x 4mm). - will likely need surgery to come by for I & D. - check f/u blood cx in Am -check TTe. 2. Oral candidiasis: - Start nystatin s/s 3. AIDS: - last CD4 43, CD% 4% in Jan 2017 -start bactrim and azithro ppx -noncompliant with his HIV follow up care at [facility] 4. Cephalosporin allergy; 5. Hx MRSA infection: -December 2016 had knee abscess I & D in ER with [facility]. -continue contact precautions Subjective: Patient well known to ID service. Admitted due to fevers , chills, and left knee pain and swellling. he thinks he was bitten by spider. he states he did use heroin these past couple of weeks but states he only smoked it. denies iv use. denies sob, abd pain, diarrhea. noncompliant with HIV care. has missed several recent appts at [facility]. Not on HAART. Has not been taking bactrim. Objective: Vital Signs Temp Pulse Resp BP Pulse Ox 36.9 C 87 16 133/69 H 99 04/15/17 12:35 04/15/17 12:35 04/15/17 12:35 04/15/17 12:35 04/15/17 12:35 Laboratory Results 04/15/17 05:00 04/15/17 05:00 04/14/17 04/15/17 04/16/17 05:59 05:59 05:59 Intake Total 900 Output Total 450 Balance 450 ESR 55 MM/HR (0-15) H 04/14/17 13:00 C-Reactive Protein 19.6 mg/L (<10.0) H 04/14/17 13:00 - Physical Exam General Appearance: alert, no apparent distress EENT: thrush Respiratory: lungs clear Cardiac/Chest: regular rate, rhythm Extremities: swelling (left knee: erythema , swelling. hot. tender to touch. ) Abdomen: normal bowel sounds, non-tender, soft, No distended Male Genitalia: other (right buttock pressure sore.nonfluctuant. erythema. not open) Skin: erythema ICD10 Worksheet Patient Problems: Problems Problem Status Onset Acquired immune deficiency syndrome (AIDS) Acute Left leg cellulitis Acute Methicillin resistant Staphylococcus aureus infection Acute ~12/31/16 Candidiasis of the esophagus Active Pneumocystosis jiroveci pneumonia Active Substance abuse Active Cellulitis Acute Sciatica Acute
[2017-04-15] MEDS ORDERED: AZITHROMYCIN 600 MG TAB PO SCH (15:15)
[2017-04-15] MEDS: SULFAMETHOX/TMP 800/160 MG 1 TAB PO SCH (16:07)
[2017-04-15] MEDS: NYSTATIN SUSP 500000 UNIT/5 ML UDCUP PO SCH ×2 (16:07→21:44)
[2017-04-15] MEDS: ACETAMINOPHEN 325 MG TAB PO PRN (16:17)
[2017-04-15] MEDS: IBUPROFEN 200 MG TAB PO PRN (17:20)
--- NOTE | 2017-04-15 18:32 | HOSPPROG ---
Hospitalist Progress Note Assessment/Plan: 46 yo M with hx of AIDS off of treatment as well as hx of MRSA infection admitted with left knee cellulitis and strep bacteremia # left knee cellulitis: started on vanco on admission, has small fluid collection noted on US and will ask IR to aspirate # strep bacteremia: with final s/s still pending, continued on vanc as above # AIDS: off of therapy for some time, ID following, started on ppx with bactrim and aizthro # chronic pain with hx of opiate use disorder and likely dependence: patient notes that he obtains both heroin and oxycodone from the street, he has obvious tolerance for opiates and exhibits significant drug seeking behaviors, dc'ed IV opiates and will limit oral as able # thrush: continue nystatin # h/o ETOH: without e/o w/d at this time # IP status, will need > 48 hours stay for eval/mgmt of above Patient new to my care. Old records reviewed and summarized as above. Care plan reviewed with ID. Subjective: no significant overnight events, patient states he is in signficiant pain and asks if I can give him more "drugs" Objective: Vital Signs Temp Pulse Resp BP Pulse Ox 39.4 C H 94 18 106/60 96 04/15/17 16:59 04/15/17 17:25 04/15/17 17:25 04/15/17 17:25 04/15/17 17:25 Laboratory Results 04/15/17 05:00 04/15/17 05:00 04/14/17 04/15/17 04/16/17 05:59 05:59 05:59 Intake Total 900 100 Output Total 450 Balance 450 100 PT 13.2 SEC (12.0-15.0) 04/14/17 13:00 INR 1.01 (0.83-1.16) 04/14/17 13:00 chronically ill appearning anicteric op clear rrr no mrg cta b soft nt nd no cce left knee erythematous with slight effusion oriented appropriate - Time Spent With Patient Time Spent with Patient: greater than 35 minutes Time Spent with Patient: Greater than 35 minutes spent on this patients care, greater than 50% of time spent counseling, educating, and coordinating care regarding the above mentioned plan. 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
[2017-04-15] MEDS: NS 1,000 ML IV SCH (19:10)
[2017-04-16] MEDS: VANCOMYCIN 1 GM in NS 250 ML IV SCH ×2 (00:26→12:23)
[2017-04-16] MEDS: HYDROmorphONE/DILAUDID 4 MG TAB PO PRN ×4 (02:29→20:09)
[2017-04-16] MEDS: NYSTATIN SUSP 500000 UNIT/5 ML UDCUP PO SCH ×4 (05:08→20:08)
[2017-04-16 05:18] LABS: ANION GAP 5 mEq/L (8-16); CALCIUM 7.8 mg/dL (8.5-10.4); CARBON DIOXIDE 25 mEq/l (22-31); CHLORIDE 105 mEq/L (97-110); CREATININE 0.8 mg/dL (0.7-1.3); GLOMERULAR FILTRATION RATE > 60; GLUCOSE 87 mg/dL (70-100); POTASSIUM 3.9 mEq/L (3.5-5.2); SODIUM 135 mEq/L (134-144)
[2017-04-16] MEDS: ENOXAPARIN 40 MG/0.4 ML SYR SC SCH (09:28)
[2017-04-16] MEDS: NICOTINE 21 MG/24 HR PATCH TD SCH (09:28)
[2017-04-16] MEDS: GABAPENTIN 300 MG CAP PO SCH ×3 (09:29→22:27)
[2017-04-16] MEDS: SULFAMETHOX/TMP 800/160 MG 1 TAB PO SCH (09:29)
[2017-04-16] MEDS: NS 1,000 ML IV SCH (09:32)
[2017-04-16] MEDS ORDERED: LIDOCAINE 1% 300 MG/30 ML SDV ONE (10:05)
--- NOTE | 2017-04-16 11:17 | ECHO ---
[email or web address] [address] [address] Main: [phone] Fax: [email or web address] Echocardiogram Name: RICKEY MONTAGUE MR#: [id number] Study Date: 04/16/2017 Study Time: 10:16 AM Date of : 1970 Age: 46 year(s) Height: 182.9 cm (72 in.) Weight: 63.05 kg (139 lb.) BSA: 1.83 m2 Gender: Male Examination: Echo Indication: IV Drugs, Hx of Aids, MRSA Image Quality: Contrast: Requested by: Rosa Olivas BP: 101 mmHg/71 mmHg Heart Rate: Rhythm: Indication: IV Drugs, Hx of Aids, MRSA Procedure Staff Log Rider: Rodrigue Mcadams Reading Physician: Oni Abdullahi Requesting Provider: Conclusions: EF is 71 %. No regional wall motion abnormality. Normal diastolic LV function. Prominant chordae with increased echo density, appears in the 2011 TTE, followed up with [facility] which was without abnormalities There is no mitral valve regurgitation. Mild tricuspid regurgitation is present. Consider SULEIMAN if clinically indicated. Measurements: Chambers Valvular Assessment AV/MV Valvular Assessment TV/PV Normal Normal Normal Name Value Range Name Value Range Name Value Range Ao Teresa (MM): 3.5 cm (2.2 cm-3.7 AV Vmax: 0.98 m/s (1 m/s-1.7 TR Vmax: 2.65 mm/s ( - ) cm) m/s) TR PGmax: 28 mmHg ( - ) IVSd (2D): 0.8 cm (0.6 cm-1.1 AV maxP mmHg ( - ) syst. PAP: 33 mmHg ( - ) cm) LVOT Vmax: 0.80 m/s (0.7 m/s-1.1 LVDd (2D): 4.4 cm (4.2 cm-5.9 m/s) cm) MV E Vmax: 0.57 m/s ( - ) LVDs (2D): 2.6 cm (2.1 cm-4 MV A Vmax: 0.45 m/s ( - ) cm) MV E/A: 1.27 ( - ) LVPWd (2D): 0.9 cm (0.6 cm-1 cm) LVEF (2D): 71 (>=54 %) Continued Measurements: Valvular Assessment AV/MV Valvular Assessment TV/PV Name Value Name Value MV E/E' Septal: 5.20 CVP (est.): 5 mmHg Patient: RICKEY MONTAGUE Study Date: 04/16/2017 Page 1 of 2 10:16 AM MV E/E' Lateral: 3.30 Findings: Left Ventricle: Normal size left ventricle. No LV hypertrophy. Normal global systolic LV function. EF is 71 %. No regional wall motion abnormality. Normal diastolic LV function. Prominant chordae with increased echo density, appears in the 2010 TTE, followed up with [facility] which was without abnormalities Right Ventricle: Normal size right ventricle. Normal RV function. Left Atrium: The left atrium is normal in size. Right Atrium: The right atrium is normal in size. Mitral Valve: The mitral valve is normal in appearance and function. There is no mitral valve regurgitation. Aortic Valve: The aortic valve is normal in appearance and function. The aortic valve is tri-leaflet. Tricuspid Valve: The tricuspid valve is normal in appearance and function. Mild tricuspid regurgitation is present. The pulmonary artery pressure is normal. Pulmonic Valve: The pulmonic valve is normal in appearance and function. Aorta: The aorta is normal. Pericardium: No pericardial effusion. (No Signature Object) Patient: RICKEY MONTAGUE Study Date: 04/16/2017 Page 2 of 2 10:16 AM [id number]
--- NOTE | 2017-04-16 14:26 | HOSPPROG ---
Hospitalist Progress Note Assessment/Plan: 46 yo M with hx of AIDS off of treatment as well as hx of MRSA infection admitted with left knee cellulitis and strep bacteremia # left knee cellulitis: started on vanco on admission, has small fluid collection noted on US and IR was able to aspirate and send for culture. Continue vanc for now # right hip pain: patient continues to complain of chronic and worsening pain in right hip, will get xray to start. # streptococcus bacteremia: with final s/s still pending, continued on vanc as above, cultures from knee aspiration pending, surveillance cultures drawn today # AIDS: off of therapy for some time, ID following, started on ppx with bactrim and aizthro # chronic pain with hx of opiate use disorder and likely dependence: patient notes that he obtains both heroin and oxycodone from the street, he has obvious tolerance for opiates and exhibits significant drug seeking behaviors, dc'ed IV opiates and will limit oral as able # thrush: continue nystatin # h/o ETOH: without e/o w/d at this time # IP status, will need > 48 hours stay for eval/mgmt of above Subjective: no significant overnight events, patient continues to complain that pain is not controlled, wants more pain meds Objective: Vital Signs Temp Pulse Resp BP Pulse Ox 37.1 C 82 16 111/61 97 04/16/17 11:52 04/16/17 11:52 04/16/17 11:52 04/16/17 11:52 04/16/17 11:52 Laboratory Results 04/15/17 05:00 04/16/17 04:54 04/15/17 04/16/17 04/17/17 05:59 05:59 05:59 Intake Total 900 2590 Output Total 450 3000 500 Balance 450 -410 -500 PT 13.2 SEC (12.0-15.0) 04/14/17 13:00 INR 1.01 (0.83-1.16) 04/14/17 13:00 chronically ill appearning anicteric op clear rrr no mrg cta b soft nt nd no cce left knee erythematous with slight effusion oriented appropriate ICD10 Worksheet Patient Problems: Problems Problem Status Onset Acquired immune deficiency syndrome (AIDS) Acute Left leg cellulitis Acute Methicillin resistant Staphylococcus aureus infection Acute ~12/31/16 Candidiasis of the esophagus Active Pneumocystosis jiroveci pneumonia Active Substance abuse Active Cellulitis Acute Sciatica Acute
[2017-04-16] MEDS: ACETAMINOPHEN 325 MG TAB PO PRN (15:31)
--- NOTE | 2017-04-16 15:50 | PCMIDPN ---
Assessment/Plan: Assessment/Plan: 1. Streptococcus species x 2 plus GPR bacteremia: - Blood cx from 04/14 today are now showing Strep parasanguinous, Strep sobrinus , GPR in one set only - Currently on Vanco. - vanco trough 9.1. Will continue as is for now. -Xray with no joint effusion. USG with small fluid collection anterior knee ( 15mm X 8mm x 4mm). - f/u blood cx pending -TTE with no obvious vegetations. 2. Left knee cellulitis with fluid collection: - s/p IR aspiration of small amt of fluid. IR note reviewed, felt to be inflammatory - sent for culture. pending. 3. Oral candidiasis: - Start nystatin s/s 4 AIDS: - last CD4 43, CD% 4% in Jan 2017 -start bactrim and azithro ppx -noncompliant with his HIV follow up care at [facility] 5. Cephalosporin allergy; - he doens't recall reaction 6. Hx MRSA infection: -December 2016 had knee abscess I & D in ER with MRSa. -continue contact precautions Meds vanco 750mg q12- Subjective: intermittent fevers. c/o right hip pain which he did not mention yesterday. left knee pain better. wants more oxycodone. Objective: Vital Signs Temp Pulse Resp BP Pulse Ox 37.4 C 80 16 108/63 95 04/16/17 15:09 04/16/17 15:09 04/16/17 15:09 04/16/17 15:09 04/16/17 15:09 Laboratory Results 04/15/17 05:00 04/16/17 04:54 04/15/17 04/16/17 04/17/17 05:59 05:59 05:59 Intake Total 900 2590 Output Total 450 3000 500 Balance 450 -410 -500 ESR 55 MM/HR (0-15) H 04/14/17 13:00 C-Reactive Protein 19.6 mg/L (<10.0) H 04/14/17 13:00 - Physical Exam General Appearance: alert, no apparent distress Respiratory: lungs clear Cardiac/Chest: regular rate, rhythm Extremities: swelling (left knee and leg) Skin: erythema (left knee with eythema improved from yesterday along with decrease in overall swelling around the knee. warm. ) ICD10 Worksheet Patient Problems: Problems Problem Status Onset Acquired immune deficiency syndrome (AIDS) Acute Left leg cellulitis Acute Methicillin resistant Staphylococcus aureus infection Acute ~12/31/16 Candidiasis of the esophagus Active Pneumocystosis jiroveci pneumonia Active Substance abuse Active Cellulitis Acute Sciatica Acute
[2017-04-16] MEDS: oxyCODONE IR 5 MG TAB PO PRN (22:35)
[2017-04-17] MEDS: VANCOMYCIN 1 GM in NS 250 ML IV SCH ×2 (00:50→13:16)
[2017-04-17] MEDS: HYDROmorphONE/DILAUDID 4 MG TAB PO PRN ×4 (00:50→23:42)
[2017-04-17] MEDS: ACETAMINOPHEN 325 MG TAB PO PRN (02:40)
[2017-04-17] MEDS: NS 1,000 ML IV SCH ×2 (02:41→18:30)
[2017-04-17 04:55] LABS: % IMMATURE GRANULYOCYTES 0.3 % (0.0-1.1); ABSOLUTE IMMATURE GRANULOCYTES 0.01 10^3/uL (0.00-0.10); ADD DIFF? NO; ADD MORPH? NO; ADD SCAN? NO; ATYPICAL LYMPHOCYTE FLAG 60 (0-99); FRAGMENT RBC FLAG 0 (0-99); HEMATOCRIT 31.6 % (40.0-51.0); HEMOGLOBIN 10.7 g/dL (13.7-17.5); LEFT SHIFT FLG 0 (0-99); LIPEMIA HEMOLYSIS FLAG 90 (0-99); MEAN CELL HEMOGLOBIN 31.3 pg (27.9-34.1); MEAN CELL HEMOGLOBIN CONCENTR. 33.9 g/dL (32.4-36.7); MEAN CELL VOLUME 92.4 fL (81.5-99.8); MEAN PLATELET VOLUME 10.8 fL (8.7-11.7); PLATELET CLUMPS FLAG 0 (0-99); PLATELET COUNT 131 10^3/uL (150-400); RED BLOOD CELL COUNT 3.42 10^6/uL (4.40-6.38)
[2017-04-17] MEDS: NYSTATIN SUSP 500000 UNIT/5 ML UDCUP PO SCH ×4 (05:19→21:29)
[2017-04-17] MEDS: oxyCODONE IR 5 MG TAB PO PRN ×3 (05:19→21:30)
[2017-04-17] MEDS: SULFAMETHOX/TMP 800/160 MG 1 TAB PO SCH (08:19)
[2017-04-17] MEDS: GABAPENTIN 300 MG CAP PO SCH ×3 (08:19→21:29)
[2017-04-17] MEDS: ENOXAPARIN 40 MG/0.4 ML SYR SC SCH (08:23)
[2017-04-17] MEDS: NICOTINE 21 MG/24 HR PATCH TD SCH (08:23)
[2017-04-17] MEDS ORDERED: PNEUMOCOCCAL 0.5ML VACCINE VIAL IM ONE (10:28)
[2017-04-17] MEDS ORDERED: FLU VACC QS 2017-18 (3YR+)/PF 0.5 ML SYR (FLUARIX QUAD) IM ONE ×2 (10:28→14:00)
--- NOTE | 2017-04-17 11:13 | PCMIDPN ---
Assessment/Plan: Assessment: Left knee skin lesion-no evidence of drainable collection. History of MRSA. Agree with management with vancomycin monotherapy. Lesion is still erythematous. Needs more treatment. HIV/aids-off anti-retroviral secondary to patient not participate patient with follow-up appointments. Patient states this is due to uncontrolled pain and discomfort in his lower extremities. Discussed with patient about using some moderate amount of pain control to allow him to make his follow-up appointments and return to anti-retroviral coverage. Patient has an appointment [place] on Monday afternoon. Plan: 1. Continue IV vancomycin. 2. Follow clinical course. 3. Try to coordinate discharge for outpatient appointment on Monday. 04/17/17 11:10 04/17/17 11:12 Subjective: Patient is resting in his hospital bed. Patient states with treatment with IV antibiotics and pain control he is improving. He is able to ambulate without discomfort. Objective: Vancomycin # 3 Vital Signs Temp Pulse Resp BP Pulse Ox 36.5 C 72 18 95/55 L 97 04/17/17 07:06 04/17/17 07:06 04/17/17 07:06 04/17/17 07:06 04/17/17 07:06 Microbiology 04/16/17 11:26 Gram Stain - Final Synovial Fluid - Aspirate Laboratory Results 04/17/17 04:28 04/16/17 04:54 04/16/17 04/17/17 04/18/17 05:59 05:59 05:59 Intake Total 2590 4050 Output Total 3000 500 Balance -410 3550 ESR 55 MM/HR (0-15) H 04/14/17 13:00 C-Reactive Protein 19.6 mg/L (<10.0) H 04/14/17 13:00 - Physical Exam General Appearance: WD/WN, alert, no apparent distress, thin, non-toxic Respiratory: lungs clear, normal breath sounds, No respiratory distress Cardiac/Chest: regular rate, rhythm, No tachycardia Extremities: inflammation, No non-tender, No normal inspection (Anterior left knee erythematous lesion. Tender to palpation.) Skin: normal color, warm/dry, No rash Neuro/Psych: alert, normal mood/affect, oriented x 3 ICD10 Worksheet Patient Problems: Problems Problem Status Onset Acquired immune deficiency syndrome (AIDS) Acute Left leg cellulitis Acute Methicillin resistant Staphylococcus aureus infection Acute ~12/31/16 Candidiasis of the esophagus Active Pneumocystosis jiroveci pneumonia Active Substance abuse Active Cellulitis Acute Sciatica Acute
--- NOTE | 2017-04-17 12:33 | HOSPPROG ---
Hospitalist Progress Note Assessment/Plan: 46 yo M with hx of AIDS off of treatment as well as hx of MRSA infection admitted with left knee cellulitis and strep bacteremia # left knee cellulitis: started on vanco on admission, has small fluid collection noted on US and IR was able to aspirate and send for culture. Continue vanc for now # right hip pain: patient continues to complain of chronic and worsening pain in right hip, jelani showing degenerative changes. Able to ambulate and pain better controlled with gabapentin # streptococcus bacteremia: with 2 different streptococcus species and diptheroids on culture continued on vanc as above, cultures from knee aspiration growing staph, surveillance cultures drawn 04/16 with NGTD. Patient denies IVDA but given multiple organisms this seems more likely # AIDS: off of therapy for some time, ID following, started on ppx with bactrim and aizthro # chronic pain with hx of opiate use disorder and likely dependence: patient notes that he obtains both heroin and oxycodone from the street, he has obvious tolerance for opiates and exhibits significant drug seeking behaviors, dc'ed IV opiates and will limit oral as able. Spent > 45 minutes speaking with him today about his pain program--he would like to know if we will continue exactly the regimen he is on now and add "speed" when we discharge him to keep him from being too sleepy on the opiates. Explained that this would not be possible, reviewed that his drug seeking behavior is concerning--he perseverates on that he only does heroin to help with the pain etc. Explained hospitalists would at best provide a very short course of pain meds to bridge him to outpatient f/u and that more importantly he would need to enter a pain contract and discontinue use of illicit drugs in order to be prescribed opiates. He lacks insight. # thrush: continue nystatin # h/o ETOH: without e/o w/d at this time # IP status, will need > 48 hours stay for eval/mgmt of above > 60 minutes spent in care of this patient, the majority of which spent counseling him regarding his relationship with pain medications and drugs. Subjective: no significant overnight events, states his current pain regimen is working very well but wonders if I will add "speed" to his current regimen to help keep him awake Objective: Vital Signs Temp Pulse Resp BP Pulse Ox 36.9 C 75 16 100/51 L 94 04/17/17 11:22 04/17/17 11:22 04/17/17 11:22 04/17/17 11:22 04/17/17 11:22 Microbiology 04/16/17 11:26 Gram Stain - Final Synovial Fluid - Aspirate Laboratory Results 04/17/17 04:28 04/16/17 04:54 04/16/17 04/17/17 04/18/17 05:59 05:59 05:59 Intake Total 2590 4050 Output Total 3000 500 Balance -410 3550 PT 13.2 SEC (12.0-15.0) 04/14/17 13:00 INR 1.01 (0.83-1.16) 04/14/17 13:00 chronically ill appearning anicteric op clear rrr no mrg cta b soft nt nd no cce left knee erythematous with slight effusion oriented appropriate ICD10 Worksheet Patient Problems: Problems Problem Status Onset Acquired immune deficiency syndrome (AIDS) Acute Left leg cellulitis Acute Methicillin resistant Staphylococcus aureus infection Acute ~12/31/16 Candidiasis of the esophagus Active Pneumocystosis jiroveci pneumonia Active Substance abuse Active Cellulitis Acute Sciatica Acute
--- NOTE | 2017-04-17 13:27 | WOCRNPDOC ---
WOCRN Advanced Assessment Note - Skin Integrity Problem, Advanced Assess Left Knee Dressing Type: Open to Air Exudate Characteristic(s): Purulent Integumentary Issue Intervention: Dressing Applied Tiki Wound Tissue: Erythema, Hot, Painful/Tender Tiki Wound Swelling: Mild Wound Bed Constitution: Dried Exudate Site Measurement - Head-to-Toe Length X Width X Depth (cm): 0.3x0.3xscab Skin Integrity Problem Comment: Scabbed removed over central fluctuant area. Wound with a significant amount of milk-able purulence. Due to location over joint and amount of thick creamy purulence a surgical consult was requested. Wound care is unable to fully explore the wound due to patient's pain level and no clear tract was found at this time. Wound care will check in tomorrow. Right Buttock Dressing Type: Open to Air Wound Bed Color: [place] Wound Bed Constitution: Smooth Tissue Site Measurement - Head-to-Toe Length X Width X Depth (cm): 2x2x0 Skin Integrity Problem Comment: Unknown etiology but wound is now mostly closed and epithelized. It is over the right lateral sacrum. Per report from patient wound was much deeper and from his description it was full thickness. Patient prefers not to have wound covered so it will be left MANI. Patient does not need active pump for bed.
--- NOTE | 2017-04-17 17:17 | ASMTCMCOM ---
CM Note CM Note Notes: Spoke with Dr Reina who is concerned about patient seeking pain medication. Will discuss pain clinics with patient. Dr. Reina also said patient has more than 1 bacteria in his system and may need IV antibiotics at d/c. Plan to meet with patient tomorrow to discuss the infusion center since patient has drug addiction and cannot be sent home with a PICC line. CM will follow. Date Signed: 04/17/2017 05:17 PM Electronically Signed By:Celia Jones LCSW
[2017-04-17] MEDS: VANCOMYCIN 1 GM in D5W 250 ML IV SCH (23:42)
[2017-04-18] MEDS: HYDROmorphONE/DILAUDID 4 MG TAB PO PRN ×4 (04:04→22:38)
[2017-04-18] MEDS: NYSTATIN SUSP 500000 UNIT/5 ML UDCUP PO SCH ×4 (04:05→21:01)
[2017-04-18] MEDS: NICOTINE 21 MG/24 HR PATCH TD SCH (09:06)
[2017-04-18] MEDS: GABAPENTIN 300 MG CAP PO SCH ×3 (09:06→21:01)
[2017-04-18] MEDS: SULFAMETHOX/TMP 800/160 MG 1 TAB PO SCH (09:06)
[2017-04-18] MEDS: ENOXAPARIN 40 MG/0.4 ML SYR SC SCH (09:20)
--- NOTE | 2017-04-18 11:06 | WOCRNPDOC ---
WOCRN Advanced Assessment Note - Skin Integrity Problem, Advanced Assess Left Knee Dressing Type: Band Aid Dressing Description: Intact Exudate Amount: Scant Exudate Color: Yellow Exudate Characteristic(s): Purulent Integumentary Issue Intervention: Dressing Applied, Silver Gel Applied Tiki Wound Tissue: Erythema, Swollen Tiki Wound Swelling: Moderate Wound Bed Color: Red Wound Bed Constitution: Red/[place] - Non Granular Tissue Site Odor: None Site Measurement - Head-to-Toe Length X Width X Depth (cm): 0.3cmx0.4cmx0.2cm Skin Integrity Problem Comment: Small, discrete opening noted over patient's L knee, filled w/ dried purulence. I removed the outer tissue and was able to express a minimal amount of purulence from this wound. Due to pain during assessment, I was unable to probe to any significant depth. There is mild fluctuance immediately periwound, and swelling and erythema throughout entire knee. According to imaging, no abscess identified. Patient expressed anger and frustration about not having a surgical consult. I explained that imaging studies might not warrant a surgical intervention, but he stated that he did not agree with that. Nursing reports that he has not allowed them to apply the ordered dressing; he reports "squeezing" the wound to express the "pus." He did allow me to apply a new dressing, and agreed to leave it in place. He also agreed to refrain squeezing the wound. Wound care will continue to follow, consulting w/ hospitalist to determine if we need to be involved ongoing.
[2017-04-18] MEDS: VANCOMYCIN 1 GM in D5W 250 ML IV SCH (12:00)
[2017-04-18] MEDS: oxyCODONE IR 5 MG TAB PO PRN ×2 (12:01→19:00)
--- NOTE | 2017-04-18 14:22 | PCMIDPN ---
Assessment/Plan: # Polymicrobial bacteremia, admits to snorting cocaine - but still could be a contaminant. To be on the safe side would treat with Levaquin for 10 more days. # MRSA Left knee cellulitis and superficial abscess, erythema is significantly improved. MRSA with resistance to PO doxy and bactrim, but still susceptible to clindamycin. Would recommend 10 more days of clindamycin 300mg TID # HIV/aids, CD4 53, not on ARV: Missing appointments --continue daily Bactrim and weekly azithromycin for Pneumocystis and MAC prophylaxis, respectively --needs follow up in ID clinic # L5-S1 foraminal stenosis could be causing right buttock pain: Unclear if injection would help his symptoms but patient needs regular follow up to assess. # H/o IVDU reports halting use 05/2016 Medications Vancomycin 1 g IV q.12 Care coordinated with RN and DR. Barnhart Subjective: Patient very agitated, inappropriate with me. very upset that "no one is doing anything about my back pain!" "You woke me up and you are doing nothing for me , just like everyone else" Objective: Vital Signs Temp Pulse Resp BP Pulse Ox 36.9 C 69 18 99/64 L 96 04/18/17 07:32 04/18/17 07:32 04/18/17 07:32 04/18/17 07:32 04/18/17 07:32 Microbiology 04/16/17 11:26 Gram Stain - Final Synovial Fluid - Aspirate Laboratory Results 04/17/17 04:28 04/16/17 04:54 04/17/17 04/18/17 04/19/17 05:59 05:59 05:59 Intake Total 4050 1150 Output Total 500 Balance 3550 1150 ESR 55 MM/HR (0-15) H 04/14/17 13:00 C-Reactive Protein 19.6 mg/L (<10.0) H 04/14/17 13:00 - Physical Exam General Appearance: alert Extremities: other (L knee erythema with pinpoint hole. reported significant recession of erythema; ROM L knee intact) Skin: other (facial seborrea) Neuro/Psych: alert, other (aggitated, poor insight) ICD10 Worksheet Patient Problems: Problems Problem Status Onset Acquired immune deficiency syndrome (AIDS) Acute Left leg cellulitis Acute Methicillin resistant Staphylococcus aureus infection Acute ~12/31/16 Candidiasis of the esophagus Active Pneumocystosis jiroveci pneumonia Active Substance abuse Active Cellulitis Acute Sciatica Acute
--- NOTE | 2017-04-18 15:49 | ASMTCMCOM ---
CM Note CM Note Notes: CM spoke w/ Dr. Barnhart regarding d/c POC. Pt will most likely discharge tomorrow. IRASEMA scheduled a new PCP appt w/ Dr. Mooney at [facility]. Appointment is in discharge section of [facility]. Pts IV antibiotics have been switched to orals. CM available for changes. Date Signed: 04/18/2017 03:48 PM Electronically Signed By:BEL Mcintyre
[2017-04-18] MEDS: IBUPROFEN 200 MG TAB PO PRN (17:11)
--- NOTE | 2017-04-18 17:49 | HOSPPROG ---
Hospitalist Progress Note Assessment/Plan: Assessment: 46 yo M p/w MRSA cellulitis and possible strep bacteremia in setting of AIDS Plan: # left knee cellulitis: started on vanco on admission, swab w/ MRSA, has hx of MRSA - d/w Dr. Webber, plan on PO clinda # right hip pain: patient continues to complain of chronic and worsening pain in right hip, x-ray showing degenerative changes - MRI 02/12 demonstrating spinal stenosis, likely referred from that area, although localized OA is also possible - no recent change in pain or mobility, so no indication for further imaging at this time - patient reports that he did not receive any benefit from PT in past, is resistant to non-narcotic tx modalities, but does believe that his level of functioning has improved w/ introduction of gabapentin - he would like to be considered for steroid injection and believes it will cure his issue, but he has yet to demonstrate any ability to adhere to follow- up appointments/outpatient care, so I believe the risk > benefit of IR injection in this patient w/ active skin infxn and possible bacteremia w/ AIDS until he can demonstrate that he can adhere to outpatient f/u care - counseled patient extensively regarding the above, and have recommended setting up outpt IR injection of R SI, possibly L-spine, in approx 1-2 weeks # possible streptococcus bacteremia: with 2 different streptococcus species and diptheroids on culture - potentially represent IVDU infxn, could also be contaminant - d/w Dr. Webber, given risk factors and underlying immunocompromised status, will use levofloxacin as outpt for 14 days from neg Cx date 04/16 # AIDS: off of therapy for some time, ID following, started on ppx with bactrim and aizthro - patient will f/u Pazalbert Beaver tomorrow after DC # chronic pain with hx of opiate use disorder and likely dependence: patient notes that he obtains both heroin and oxycodone from the street, he has obvious tolerance for opiates and exhibits significant drug seeking behaviors, dc'ed IV opiates and will limit oral as able - patient resistant to adjusting dilaudid/oxy IR combo, and will prescribe a very limited supply at DC given potential for abuse # thrush: continue nystatin diet: regular ppx: high risk, lovenox 40 code: full dispo: ADD 04/19, pending stability of above Subjective: reports ongoing back pain, increased ambulatory ability, frustrated easily w/ staff Objective: Vital Signs Temp Pulse Resp BP Pulse Ox 37.4 C 72 16 105/62 96 04/18/17 15:35 04/18/17 15:35 04/18/17 15:35 04/18/17 15:35 04/18/17 15:35 Microbiology 04/16/17 11:26 Gram Stain - Final Synovial Fluid - Aspirate Laboratory Results 04/17/17 04:28 04/16/17 04:54 04/17/17 04/18/17 04/19/17 05:59 05:59 05:59 Intake Total 4050 1150 Output Total 500 Balance 3550 1150 PT 13.2 SEC (12.0-15.0) 04/14/17 13:00 INR 1.01 (0.83-1.16) 04/14/17 13:00 - Time Spent With Patient Time Spent with Patient: greater than 35 minutes Time Spent with Patient: Greater than 35 minutes spent on this patients care, greater than 50% of time spent counseling, educating, and coordinating care regarding the above mentioned plan. - Physical Exam Constitutional: no apparent distress, chronically ill appearing, uncomfortable, cachectic Respiratory: no respiratory distress, no rales or rhonchi, clear to auscultation Skin: other (blanchable erythema over left knee w/ central ulcerated pustule) Neurologic: AAOx3 Psychiatric: not encephalopathic, anxious, agitated, other (rapid speech, tangential but redirectible) ICD10 Worksheet Patient Problems: Problems Problem Status Onset Acquired immune deficiency syndrome (AIDS) Acute Left leg cellulitis Acute Methicillin resistant Staphylococcus aureus infection Acute ~12/31/16 Candidiasis of the esophagus Active Pneumocystosis jiroveci pneumonia Active Substance abuse Active Cellulitis Acute Sciatica Acute
[2017-04-18 21:13] LABS: %CD3 (T CELLS) 66 % (58-86)
[2017-04-18 22:41] VITALS: RESP 18
[2017-04-19] MEDS: VANCOMYCIN 1 GM in D5W 250 ML IV SCH ×2 (00:16→11:45)
[2017-04-19] MEDS: oxyCODONE IR 5 MG TAB PO PRN ×2 (02:29→13:00)
[2017-04-19] MEDS: HYDROmorphONE/DILAUDID 4 MG TAB PO PRN ×2 (04:18→08:31)
[2017-04-19] MEDS: NYSTATIN SUSP 500000 UNIT/5 ML UDCUP PO SCH ×2 (05:23→11:29)
[2017-04-19] MEDS: IBUPROFEN 200 MG TAB PO PRN (05:26)
[2017-04-19 07:29] VITALS: BP 99/61; PULSE 80; TEMP 98.4; O2SAT 92
[2017-04-19] MEDS: GABAPENTIN 300 MG CAP PO SCH (08:30)
[2017-04-19] MEDS: SULFAMETHOX/TMP 800/160 MG 1 TAB PO SCH (08:30)
[2017-04-19] MEDS: NICOTINE 21 MG/24 HR PATCH TD SCH ×2 (08:31→08:33)
[2017-04-19] MEDS: ENOXAPARIN 40 MG/0.4 ML SYR SC SCH (08:31)
--- NOTE | 2017-04-19 15:12 | ASDISCHSUM ---
Discharge Information Plan Status:Home with No Needs Medically Cleared to Leave:04/18/2017 Discharge Date:04/19/2017 01:13 PM D/C Disposition: ADT D/C Disposition:Home, Routine, Self-Care Projected Discharge Date:04/19/2017 12:00 AM Transportation at D/C: Discharge Delay Reason: Follow-Up Date:04/19/2017 12:00 AM Discharge Slot: Final Diagnosis: Placement Information Patient Contact Information Contact Name:RITA Relationship:Father Address:[address] Work Phone: City:[place] Alternate Phone: [facility]/Zip Code:[place] [address] Email: Financial Information Financial Class:HMO and PPO Plans Primary Plan Desc:MIRELLA HAN Primary Plan Number:[id number] Secondary Plan Desc:[employer] [place] Secondary Plan Number:[id number] Assessment Information LACE LACE Length of stay for Answers: Less than 1 day current admission Acuity / Level of Care Answers: Was the patient admitted to hospital via the emergency department? Yes: Comorbidities - select Answers: AIDS all that apply Emergency dept visits in Answers: 4+ last 6 months Score: 11 Date Signed: 04/14/2017 01:43 PM Electronically Signed By:Dg Vela LCSW [facility] CM Progress Note CM Note CM Note Notes: Pt has been admitted with L knee redness and pain. Hx AIDS, off antiretroviral therapy due to absence of care. Also has hx of MRSA cellulitis. Frequent etoh. ID consult requested, vancomycin started. CM will follow for any d/c needs. Date Signed: 04/14/2017 04:27 PM Electronically Signed By:RICKEY Parnell [facility] [employer] [employer] Progress Note CM Note CM Note Notes: Spoke with Dr Reina who is concerned about patient seeking pain medication. Will discuss pain clinics with patient. Dr. Reina also said patient has more than 1 bacteria in his system and may need IV antibiotics at d/c. Plan to meet with patient tomorrow to discuss the infusion center since patient has drug addiction and cannot be sent home with a PICC line. CM will follow. Date Signed: 04/17/2017 05:17 PM Electronically Signed By:Celia Jones LCSW [facility] CM Progress Note CM Note CM Note Notes: CM spoke w/ Dr. Barnhart regarding d/c POC. Pt will most likely discharge tomorrow. CM scheduled a new PCP appt w/ Dr. Mooney at [facility]. Appointment is in discharge section of [facility]. Pts IV antibiotics have been switched to orals. CM available for changes. Date Signed: 04/18/2017 03:48 PM Electronically Signed By:BEL Mcintyre Intervention Information
--- NOTE | 2017-04-19 15:32 | ASMTCMCOM ---
CM Note CM Note Notes: Pt. d/c'ed today independently. CM colleague had already made [facility] appt. for 05/02/[address] Mooney. F/u appt. also with Paz Beaver at [facility] on 04/25/17 at 9:00am. Per RN, Pt's father picked him up today. Date Signed: 04/19/2017 03:31 PM Electronically Signed By:Idalmis Little LCSW
--- NOTE | 2017-04-19 18:44 | PDDCSUM ---
Discharge Summary Discharge Summary: DISCHARGE SUMMARY FOLLOW-UP ITEMS: Arrange outpatient steroid injection of SI and lumbar spine DATE OF ADMISSION: 04/14/2017 DATE OF DISCHARGE: 04/19/2017 DISCHARGE DIAGNOSES: 1. MRSA Left knee cellulitis and abscess 2. Possible Streptococcus bacteremia 3. AIDS 4. Chronic right hip pain, back pain, sciatica 5. Polysubstance abuse 6. Thrush 7. Suspected personality disorder CONSULTATIONS: Infectious Disease PROCEDURES / IMAGING: Echocardiogram demonstrating no overt vegetations, hip x-ray demonstrating no significant abnormalities other than arthritis CHIEF COMPLAINT: Acute back pain, knee pain SUBJECTIVE: Patient is feeling well at time of discharge, he reports that his mobility is the best it has been a long-time PHYSICAL EXAM ON DISCHARGE: Systolic blood pressure 100, satting well on room air, afebrile overnight, alert awake oriented x3, cachectic appearing LABS ON DISCHARGE: CD4 count is 16 HOSPITAL COURSE BY PROBLEM: The patient presented with left knee cellulitis and drainable abscess, growing MRSA. There did not appear to be an underlying joint infection and the patient demonstrated improvement on vancomycin. He will be continued on clindamycin, given his risk of IV drug use through a PICC line, and his clindamycin will be continued for total of 2 weeks stop date April 29. His blood cultures also demonstrated polymicrobial Streptococcus bacteremia, and given the patient's previous history of polysubstance abuse as well as IV drug use, it was suspected that this was an actual bacteremia and the patient should receive a total of 2 weeks treatment from his negative culture date of April 16. Consequently, the patient will be continued on levofloxacin for bacterial-cidal coverage and his stop date is April 29. The patient notably has a chads with CD4 count of 16, and he has been non adherent to anti-retroviral medications in the outpatient setting. He was seen in consultation by Infectious Disease, and they recommended immediate follow-up. The patient has scheduled follow-up on April 25, and he will be continued on prophylactic coverage with 1200 mg of azithromycin once weekly, Bactrim double strength once daily. The patient's biggest concern was his right-sided sciatic pain and his back pain, which he reports has significantly limited his functional status prior to this presentation. The patient received extensive counseling regarding pain management and he was initiated on gabapentin. The patient experienced substantial benefit from the gabapentin, and he would like to remain on it in the outpatient setting. I have advised the patient that he can be up titrated on his gabapentin over time and he is being discharged on 300 mg 3 times daily. Patient also required a significant amount of opiate medication for breakthrough pain, and his pain had been stabilized on a combination of oxycodone and Dilaudid. We realize that this is not an ideal combination, but the patient was very resistant to making any changes, and he was not demonstrating any evidence of over-sedation on this medication, indicating that he most likely has outpatient use of opiates prior to this presentation. But given that his functional status had substantially improved on the combination of gabapentin, oxycodone, Dilaudid, I prescribed him a limited supply of the oxycodone and Dilaudid at discharge, with recommendations to establish primary care and reassess his pain management strategies. The patient had also requested an interventional steroid injection in his SI joint as well as possibly his lumbar spine, and we elected to hold on this intervention at this time given his low CD4 count as well as his difficulties with adhering to follow up in the outpatient setting. I discussed his case with Dr. Eddie Eagle, we both agreed that the patient would be a high risk of lin or postprocedural complications, with high risk of complication from infection if he was non adherent to follow-up. Consequently, I provided the patient with the contact information for Dr. Eagle and advised him to schedule an outpatient consultation and procedure, which will require the patient to more actively engage in his outpatient care. We also scheduled him with a follow-up appointment at the [facility] and the patient is interested in following up at that location. Throughout his hospitalization, the patient did demonstrate pain medication seeking behavior and also demonstrated traits of an underlying, undiagnosed personality disorder. The patient seemed resistant to establishing outpatient mental health care, and he also was resistant to acknowledging possible polysubstance abuse issues. I recommend that these issues be considered when he is seen in the outpatient setting and when considering how to best address his chronic pain management issues. DISCHARGE MEDICATIONS: Please see official discharge medication reconciliation sheet in chart , azithromycin 1200 mg once weekly, Bactrim double strength 1 tab once daily, clindamycin 300 mg q.8 hours through April 29, levofloxacin 750 mg daily through April 29, oxycodone immediate release 5 mg 40 tablets prescribed, Dilaudid 2 mg as needed 40 tablets prescribed, gabapentin 300 mg 3 times daily 90 tablets prescribed. DISCHARGE INSTRUCTIONS: Please follow up with [facility]. TIME SPENT: Greater than 30 minutes were spent on direct patient care, as well as discharge planning and preparation.
== END 2017-04-19 13:13 | disposition home or self-care (01) | DRG 602 ==
LOC: OBSVTOIN 14:38 → F3E 14:53
PROVIDERS: ADMIT Family Medicine; ATTEND Family Medicine
PROC: 0J9P3ZZ Drainage of Left Lower Leg Subcutaneous Tissue and Fascia, Percutaneous Approach (ICD-10-PCS; principal; 2017-04-16)
DX: L03.116 Cellulitis of left lower limb (principal); B20 Human immunodeficiency virus [HIV] disease; B37.0 Candidal stomatitis; L02.416 Cutaneous abscess of left lower limb; B95.62 Methicillin resistant Staphylococcus aureus infection as the cause of diseases classified elsewhere; B95.5 Unspecified streptococcus as the cause of diseases classified elsewhere; M54.41 Lumbago with sciatica, right side; F19.10 Other psychoactive substance abuse, uncomplicated; F60.9 Personality disorder, unspecified; G89.29 Other chronic pain; Z72.0 Tobacco use; Z85.028 Personal history of other malignant neoplasm of stomach; Z86.711 Personal history of pulmonary embolism; Z23 Encounter for immunization
CPT/HCPCS: 86359-90; 86360-90; 97162-GP; 97165-GO; 97535-GO; G0008; G8978-GP-CJ; G8979-GP-CI; J1650; J2060; J3370

== ENCOUNTER 2017-06-05 11:37 | Inpatient (IN) | payer OTHER, MEDICAID ==
--- NOTE | 2017-06-05 12:47 | EDPHY ---
HPI/HX/ROS/PE/MDM Narrative: CHIEF COMPLAINT: Facial and testicular swelling HISTORY OF PRESENT ILLNESS: The patient is a 46 y/o male with a history of HIV, AIDS, and MRSA complaining of facial swelling and testicular pain. On 04/19/17 he was discharged from the hospital after a 5 day admission for back pain and left knee cellulitis. He was discharged with Azithromycin, Bactrim, Clindamycin, levofloxacin, and gabapentin for back pain. However, the patient has not been taking these medication as it was "too complicated". Denies following up with a PCP or the [facility]. On Monday, 3 days ago, he developed a subjective fever, facial swelling, and testicular/ scrotal pain. He is also having drainage from areas of erythema and swelling on his face, left upper lip, lower abdominal wall, posterior scrotum. Patient also reports a sore throat, and a mild cough associated with clear sputum. He is complaining of mild chest pain and lightheadedness, but denies syncope. Denies IV drug use for the past couple of months. No chills, shortness of breath, palpitations, vomiting, diarrhea, urinary complaints, headache. Last PO was yesterday. [facility] medical records reviewed including discharge summary on 04/19/17. REVIEW OF SYSTEMS: Aside from elements discussed in the HPI, a comprehensive 10-point review of systems was reviewed and is negative. PAST MEDICAL HISTORY: HIV, AIDS, MRSA, PE, stomach cancer, abdominal surgery SOCIAL HISTORY: Lives in [place], single. Admits to using tobacco and marijuana products. Prior IV drug use. VITAL SIGNS: Reviewed by me. Temperature 38.9. GENERAL: Agitated, thin, nearly cachectic, in no respiratory distress. HEENT: Atraumatic. Eyes: No icterus, no injection. Mouth: Thrush on palate, erythema on oral mucosa, erythema on both cheeks, abscess on upper lip on left with drainage site. Neck: supple with no adenopathy. LUNGS: Clear to auscultation bilaterally, no wheezes, rhonchi or rales. CARDIAC: Regular rate and rhythm, no rubs, murmurs or gallops. ABDOMEN: Erythema and area of fluctuance on lower abdomen and anterior pubic region. Soft, nondistended, bowel sounds normal. BACK: No CVA tenderness. GROIN: Massively swollen scrotum, erythema, swelling and tenderness of penis and scrotum. Erythema and tenderness on anterior pubic symphysis and posterior scrotum. Drainage are on posterior scrotum and anterior pubic symphysis. Unable to palpate testicles secondary to discomfort. EXTREMITIES: No trauma. No edema. Range of motion is normal throughout. NEURO: Alert and oriented, grossly nonfocal. SKIN: Warm and dry, no rash. PSYCHIATRIC: Normal mentation, no agitation. Portions of this note were transcribed by a medical billing service. I personally performed a history, physical exam, medical decision making, and confirmed accuracy of information the transcribed note. ED Course: The patient is a 46 y/o male with a history of HIV, AIDS, and MRSA presenting with facial and testicular swelling and tenderness. Patient also has a temperature of 38.9 degrees. On exam, the patient has massively swollen testicles as well as erythema and tenderness to his penis and scrotum. There is erythema and tenderness on his anterior pubic symphysis and posterior scrotum. As well as drainage on the posterior scrotum and anterior pubic symphysis. I am unable to palpate testicles secondary to discomfort. UA, CD4 count, and wound culture ordered. 1gm PO Tylenol, 600mg PO Motrin, 1,800mL IV NS, and 1gm Vancomycin drip administered. 1330: Consulted with Dr. Oliva, urologist, regarding this patient's symptoms. He agrees to consult with this patient. Abdominopelvic CT and cxr ordered. 1mg IV Dilaudid and 4mg IV Zofran administered. 1428: Consulted with hospitalist service, Dr. Silva accepts admission of this patient. Infectious disease will be consulted. 1433: Spoke with radiologist, patient has an abdominal wall infection. There is no free air in the scrotum or abscess on the anterior abdominal wall. Patient's chest x-ray is normal. 1mg IV Dilaudid administered. 1445: Consulted with Dr. Carey, infectious disease, regarding the patient's symptoms and imaging findings. He agress to consult on this patient. 1526: Consulted with Dr. Carey; he was able to express draining form the scrotum. ENT will need to be consulted for patient's lip and facial swelling, possible abscess. 1535: Consulted with Dr. Oliva, regarding the patients imaging findings and Dr. Carey's findings. He will potentially take the patient to the OR to drain the scrotal abscess. 1550: Consulted with DIMAS Martinez, ENT, regarding this patient; they agree to consult on this patient during his admission. 1637: Spoke with radiologist, there is a 1x1.5x1.5 cm fluid collection in the scrotum but it is unknown if this is an abscess. There was also a subsequent finding of a DVT in the right common femoral vein; this does not go below or up into the pelvis. Critical care time spent by me, Dr. Bennett, exclusively with this patient was 30 minutes, exclusive of PA time and exclusive of procedures. The organ system at risk was skin and groin and I gave IVF, Vancomycin to prevent worsening of the patients condition. MDM: Differential diagnoses for the patient's symptom complex was considered including but not limited to MRSA, bacteremia, endocarditis, Fourneirs gangrene , scrotal abscess, intra-abdominal abscess, medication noncompliance. - Data Points Imaging Results: Imaging Impressions Chest X-Ray 06/05/17 13:01 Impression: Stable lung hyperexpansion, with no focal infiltrate. Abdomen CT 06/05/17 13:33 Impression: 1. Markedly enlarged and edematous scrotum. No evidence of Dariusz gangrene or discernible abscess. 2. No free fluid or inflammatory process within the abdomen or pelvis. Findings discussed with Emergency Department physician, Landy Bennett M.D., on at 1430 hours. Imaging: Discussed imaging studies w/ patient monitor Radiologist, I viewed and interpreted images myself Laboratory Results: Laboratory Results 06/05/17 12:30 06/05/17 12:30 06/05/17 06/05/17 06/05/17 13:50 13:50 13:15 WBC RBC Hgb Hct MCV MCH MCHC RDW Plt Count MPV Neut % (Auto) Lymph % (Auto) [place] % (Auto) Eos % (Auto) Baso % (Auto) Nucleat RBC Rel Count Absolute Neuts (auto) Absolute Lymphs (auto) Pending Absolute Monos (auto) Absolute Eos (auto) Absolute Basos (auto) Absolute Nucleated RBC Immature Gran % Immature Gran # PT INR APTT VBG Lactic Acid 1.5 mmol/L mmol/L (0.7-2.1) Sodium Potassium Chloride Carbon Dioxide Anion Gap BUN Creatinine Estimated GFR Glucose Calcium Total Bilirubin Conjugated Bilirubin Unconjugated Bilirubin AST ALT Alkaline Phosphatase Total Protein Albumin Lipase Absolute Lymphocytes Pending Comments Pending % CD3 Cells Pending Absolute CD3 Count Pending % CD4 Cells Pending Pending Absolute CD4 Count Pending Pending T-Help/Suppress Ratio Pending T-Lymph CD4/CD8 Ratio Pending % CD8 Cells Pending Pending Absolute CD8 Count Pending Pending 06/05/17 06/05/17 06/05/17 12:30 12:30 12:30 WBC 8.49 10^3/uL 10^3/uL (3.80-9.50) RBC 4.10 10^6/uL L 10^6/uL (4.40-6.38) Hgb 12.8 g/dL L g/dL (13.7-17.5) Hct 36.5 % L % (40.0-51.0) MCV 89.0 fL fL (81.5-99.8) MCH 31.2 pg pg (27.9-34.1) MCHC 35.1 g/dL g/dL (32.4-36.7) RDW 13.5 % % (11.5-15.2) Plt Count 156 10^3/uL 10^3/uL (150-400) MPV 10.4 fL fL (8.7-11.7) Neut % (Auto) 84.9 % H % (39.3-74.2) Lymph % (Auto) 7.4 % L % (15.0-45.0) [place] % (Auto) 6.6 % % (4.5-13.0) Eos % (Auto) 0.1 % L % (0.6-7.6) Baso % (Auto) 0.2 % L % (0.3-1.7) Nucleat RBC Rel Count 0.0 % % (0.0-0.2) Absolute Neuts (auto) 7.20 10^3/uL H 10^3/uL (1.70-6.50) Absolute Lymphs (auto) 0.63 10^3/uL L 10^3/uL (1.00-3.00) Absolute Monos (auto) 0.56 10^3/uL 10^3/uL (0.30-0.80) Absolute Eos (auto) 0.01 10^3/uL L 10^3/uL (0.03-0.40) Absolute Basos (auto) 0.02 10^3/uL 10^3/uL (0.02-0.10) Absolute Nucleated RBC 0.00 10^3/uL 10^3/uL (0-0.01) Immature Gran % 0.8 % % (0.0-1.1) Immature Gran # 0.07 10^3/uL 10^3/uL (0.00-0.10) PT 14.3 SEC SEC (12.0-15.0) INR 1.09 (0.83-1.16) APTT 32.5 SEC SEC (23.0-38.0) VBG Lactic Acid Sodium 132 mEq/L L mEq/L (134-144) Potassium 3.7 mEq/L mEq/L (3.5-5.2) Chloride 95 mEq/L L mEq/L (97-110) Carbon Dioxide 24 mEq/l mEq/l (22-31) Anion Gap 13 mEq/L mEq/L (8-16) BUN 13 mg/dL mg/dL (7-23) Creatinine 0.9 mg/dL mg/dL (0.7-1.3) Estimated GFR > 60 Glucose 101 mg/dL H mg/dL (70-100) Calcium 8.6 mg/dL mg/dL (8.5-10.4) Total Bilirubin 0.6 mg/dL mg/dL (0.1-1.4) Conjugated Bilirubin 0.3 mg/dL mg/dL (0.0-0.5) Unconjugated Bilirubin 0.3 mg/dL mg/dL (0.0-1.1) AST 24 IU/L IU/L (17-59) ALT 25 IU/L IU/L (21-72) Alkaline Phosphatase 88 IU/L IU/L (38-126) Total Protein 7.8 g/dL g/dL (6.3-8.2) Albumin 3.4 g/dL L g/dL (3.5-5.0) Lipase 34 IU/L IU/L (23-300) Absolute Lymphocytes Comments % CD3 Cells Absolute CD3 Count % CD4 Cells Absolute CD4 Count T-Help/Suppress Ratio T-Lymph CD4/CD8 Ratio % CD8 Cells Absolute CD8 Count Medications Given: Sodium Chloride (Ns) 1,000 mls @ 125 mls/hr IV CONT KYRIE Stop: 06/06/17 23:14 Last Admin: 06/05/17 20:18 Dose: 1,000 mls Discontinued Medications Acetaminophen (Tylenol) 1,000 mg PO EDNOW ONE Stop: 06/05/17 13:04 Last Admin: 06/05/17 13:25 Dose: 1,000 mg Bacitracin (Bacitracin Ointment Tube) Confirm Administered Dose 14.2 guanaco TP .STK -MED ONE Stop: 06/05/17 16:44 Last Admin: 06/05/17 20:01 Dose: Not Given Bupivacaine HCl (Sensorcaine 0.25% Sdv) Confirm Administered Dose 30 ml .ROUTE .STK-MED ONE Stop: 06/05/17 16:44 Last Admin: 06/05/17 20:01 Dose: Not Given Hydromorphone HCl (Dilaudid) 1 mg IVP EDNOW ONE Stop: 06/05/17 13:40 Last Admin: 06/05/17 13:40 Dose: 1 mg Hydromorphone HCl (Dilaudid) 1 mg IVP EDNOW ONE Stop: 06/05/17 14:36 Last Admin: 06/05/17 14:54 Dose: 1 mg Sodium Chloride (Ns) 1,800 mls @ 3,600 mls/hr 30 ml/kg infuse over 30 min ( 1800 ml) IV EDNOW ONE PRN Reason: Protocol Stop: 06/05/17 13:30 Last Admin: 06/05/17 13:26 Dose: 1,800 mls Vancomycin/Sodium Chloride (Vancomycin 1 Gm (Premix)) 250 mls @ 250 mls/hr IV EDNOW ONE PRN Reason: Protocol Stop: 06/05/17 14:01 Last Admin: 06/05/17 14:57 Dose: 250 mls Piperacillin/Tazobactam/Dextrose (Zosyn 3.375 Gm (Premix)) 50 mls @ 100 mls/hr IV Q6HRS KYRIE PRN Reason: Protocol Stop: 07/05/17 15:29 Last Admin: 06/05/17 17:55 Dose: 50 mls Ibuprofen (Motrin) 600 mg PO EDNOW ONE Stop: 06/05/17 13:04 Last Admin: 06/05/17 13:25 Dose: 600 mg Midazolam HCl (Versed) 2 mg IVP ONCALL ONE Stop: 06/05/17 17:02 Last Admin: 06/05/17 17:36 Dose: 2 mg Ondansetron HCl (Zofran) 4 mg IVP EDNOW ONE Stop: 06/05/17 13:40 Last Admin: 06/05/17 13:40 Dose: 4 mg Microbiology Results: MICROBIOLOGY 06/05/17 12:58 Hand - Swab Gram Stain - Final General Time Seen by Provider: 06/05/17 12:44 Initial Vital Signs: Initial Vital Signs Temperature (C) 37.7 C 06/05/17 11:53 Heart Rate 92 06/05/17 11:53 Respiratory Rate 18 06/05/17 11:53 Blood Pressure 121/69 H 06/05/17 11:53 O2 Sat (%) 95 06/05/17 11:53 O2 Delivery Mode Room Air Allergies/Adverse Reactions: cefepime Allergy (Unknown, Verified 06/05/17 16:09) Unknown Cephalosporins Allergy (Unknown, Verified 06/05/17 11:52) Unknown tramadol Allergy (Unknown, Verified 06/05/17 11:52) cat dander Allergy (Verified 06/05/17 11:52) Home Medications: Medication Instructions Recorded NK [No Known Home Meds] 06/05/17 Departure - Departure Disposition: [facility] Inpatient Acute Clinical Impression: Acquired immune deficiency syndrome (AIDS), Methicillin resistant Staphylococcus aureus infection, Noncompliance with medications, Infection in abdomen, Cellulitis and abscess of face Condition: Fair Report Scribed for: Landy Bennett Report Scribed by: Erika Martinez Date of Report: 06/05/17 Time of Report: 12:46
[2017-06-05] MEDS ORDERED: NS 1,800 ML IV ONE (13:01)
[2017-06-05] MEDS ORDERED: VANCOMYCIN HCL/NORMAL SALINE 250 ML IV ONE (13:02)
[2017-06-05] MEDS ORDERED: IBUPROFEN 600 MG TAB PO ONE (13:03)
[2017-06-05] MEDS ORDERED: ACETAMINOPHEN 500 MG TAB PO ONE (13:03)
[2017-06-05 13:12] LABS: PLATELET COUNT 156 10^3/uL (150-400)
[2017-06-05 13:16] LABS: INR 1.09 (0.83-1.16); PROTIME(PATIENT) 14.3 SEC (12.0-15.0)
[2017-06-05] MEDS ORDERED: ONDANSETRON 4 MG/2 ML VIAL ONE (13:34)
[2017-06-05] MEDS ORDERED: HYDROmorphONE/DILAUDID 1 MG/ML INJ ONE (13:35)
[2017-06-05] MEDS ORDERED: HYDROmorphONE/DILAUDID 1 MG/ML INJ IVP ONE ×2 (13:39→14:35)
[2017-06-05] MEDS ORDERED: ONDANSETRON 4 MG/2 ML VIAL IVP ONE (13:39)
[2017-06-05] MEDS ORDERED: IOPAMIDOL (ISOVUE-300) 100 ML BTL ONE (13:40)
[2017-06-05] MEDS ORDERED: ONDANSETRON DISINTEGRATING 4 MG TAB PO PRN (15:11)
[2017-06-05] MEDS ORDERED: OXYCODONE/APAP 5/325 TAB PO PRN (15:11)
[2017-06-05] MEDS ORDERED: ONDANSETRON 4 MG/2 ML VIAL IVP PRN ×2 (15:11→18:46)
[2017-06-05] MEDS ORDERED: CLINDAMYCIN 600 MG/DEXTROSE 50 ML IV SCH (15:30)
--- NOTE | 2017-06-05 15:48 | PCMIDPN ---
Assessment/Plan: Assessment/Plan: * Scrotal abscess with perineal cellulitis/phlegmon: Purulence expressed from base of scrotum where indurated consistent with abscess. Most likely related to MRSA given prior history and overall presentation. Also has significant cellulitis in perineal region which is exquisitely tender to palpation. This is accompanied by right medial thigh lymphangitis. Lymphangitis less typical for MRSA. Raises question of possible streptococcal etiology or polymicrobial etiology given location of infection. Suspect scrotal abscess will need to be drained and may need incision and drainage of perineal region to ensure no evidence of deeper seated process such as Fourniere's although no necrotic tissue present. Purulent material expressed from base of scrotum obtained for culture. Will treat broadly with vancomycin, clindamycin (for antitoxin properties), and Zosyn pending cultures (trying to further clarify cephalosporin allergy although patient notes tolerance of amoxicillin previously ). Urology consultation is pending for further evaluation as is ultrasound of scrotum and perineal region. * Nasolabial abscess: Clinical findings consistent with nasolabial abscess likely due to MRSA. Will need ENT consultation for drainage. Vancomycin as above. * AIDS: Patient noncompliant with follow-up. Severe immunosuppression with CD4 count of 16 in March. Discussed with patient that if he does not treat underlying HIV that he is at high risk of from infectious complications. Time spent, greater than 35 min, of which greater than half was spent in education/counseling/coordination of care related to scrotal abscess with perineal cellulitis/phlegmon and nasolabial abscess as well as underlying AIDS. 06/05/17 15:41 06/05/17 15:57 06/05/17 15:58 Subjective: Asked to see patient well known to me from prior care with past medical history of AIDS, CD4 count 16, not on anti-retroviral therapy, with prior history of MRSA skin and soft tissue infection who presented to ED complaining of several days of scrotal pain and edema with associated fever. Denies presence of rigors. Subsequently has developed exquisite pain in right perineal region with erythema as well as tender erythema in the right medial thigh. Also complains of pain over the left upper lip with erythema in this region as well as both cheeks. Hospitalized in March for MRSA skin and soft tissue infection of lower extremity. Describes not being able to take medicines post discharge due to complexity of treatment regimen. Did not maintain follow-up in our office post discharge. Allergies: Cephalosporins listed as allergy in his record although I cannot find exact reaction nor does he recall reaction. He notes that he has tolerated amoxicillin previously. Objective: Vital Signs Temp Pulse Resp BP Pulse Ox 36.7 C 84 18 81/48 L 92 06/05/17 14:58 06/05/17 14:58 06/05/17 14:58 06/05/17 14:58 06/05/17 14:58 Laboratory Tests 06/05/17 06/05/17 06/05/17 12:30 12:30 13:15 WBC 8.49 Neut % (Auto) 84.9 H VBG Lactic Acid 1.5 Carbon Dioxide 24 Creatinine 0.9 Total Bilirubin 0.6 AST [address] of abdomen and pelvis shows significant scrotal edema without discrete abscess; phlegmonous stranding present in suprapubic and right perineal region Blood cultures x2 pending Status post vancomycin x1 - Physical Exam General Appearance: alert, apparent distress (Due to scrotal, perineal and lip pain), non-toxic EENT: other (Left nasolabial region with erythema, marked edema, and tenderness with erythema of both cheeks) Male Genitalia: inguinal tenderness (Suprapubic and right perineal region with erythema, warmth and exquisite tenderness over suprapubic region on right side without palpable fluctuance or crepitus; overlying scabbing present superior to base of penis), scrotal edema (Marked scrotal edema with diffuse tenderness with thickening and induration at base of scrotum from which purulent material is expressed from 2 separate openings), other (Penile edema without tenderness at base of penis or evidence of necrosis) Skin: rash (Diffuse scabs and excoriations) Lymphatic: other (Tender lymphangitis in right thigh medially) ICD10 Worksheet Patient Problems: Problems Problem Status Onset Cellulitis Acute Left leg cellulitis Acute Noncompliance with medications Acute Infection in abdomen Acute Cellulitis and abscess of face Acute Methicillin resistant Staphylococcus aureus infection Acute ~12/31/16 Acquired immune deficiency syndrome (AIDS) Acute Pneumocystosis jiroveci pneumonia Active Candidiasis of the esophagus Active Substance abuse Active Sciatica Acute
[2017-06-05] MEDS ORDERED: BACITRACIN ZINC 14.2 GM OINTTUBE TP ONE (16:43)
[2017-06-05] MEDS ORDERED: BUPIVACAINE 0.25% 30 ML SDV ONE (16:43)
--- NOTE | 2017-06-05 17:00 | PDANEPAE ---
ANE History of Present Illness 46 yo for i d scrotal abcess h/o hiv/aids mrsa ANE Past Medical History - Pulmonary History Hx Oxygen in Use at Home: No Hx Sleep Apnea: Yes - Endocrine History Hx Diabetes: No - Chronic Pain History Chronic Pain: Yes ANE Review of Systems Review of Systems: - Exercise capacity METS (RN): 4 METS ANE Patient History - Allergies Allergies/Adverse Reactions: cefepime Allergy (Unknown, Verified 06/05/17 16:09) Unknown Cephalosporins Allergy (Unknown, Verified 06/05/17 11:52) Unknown tramadol Allergy (Unknown, Verified 06/05/17 11:52) cat dander Allergy (Verified 06/05/17 11:52) - Home Medications Home Medications: NK [No Known Home Meds] 06/05/17 [Last Taken Unknown] - NPO status NPO Status: no food or drink >8 hours NPO Since - Liquids (Date): 06/05/17 NPO Since - Liquids (Time): 08:00 - Anes Hx Anes Hx: no prior problems - Smoking Hx Smoking Status: Current every day smoker ANE Labs/Vital Signs - Labs Result Diagrams: 06/05/17 12:30 06/05/17 12:30 - Vital Signs Blood Pressure: 86/42 Heart Rate: 75 Respiratory Rate: 17 O2 Sat (%): 95 Height: 6 ft Weight: 58.967 kg ANE Physical Exam - Airway Neck exam: FROM Mallampati Score: Class 2 - Pulmonary Pulmonary: no respiratory distress - Cardiovascular Cardiovascular: regular rate and rhythym - ASA Status ASA Status: III ANE Anesthesia Plan Anesthesia Plan: general endotracheal anesthesia
[2017-06-05] MEDS ORDERED: MIDAZOLAM 2 MG/2 ML VIAL IVP ONE (17:01)
[2017-06-05] MEDS ORDERED: PROPOFOL/EMULSION 500 MG/50 ML BOTTLE IV ONE (17:16)
[2017-06-05] MEDS ORDERED: fentaNYL 250 MCG/5 ML INJ ONE (17:16)
[2017-06-05] MEDS ORDERED: REMIFENTANIL HCL 1 MG VIAL ONE (17:17)
--- NOTE | 2017-06-05 17:27 | GHP ---
[f rep st] HISTORY AND PHYSICAL DATE OF ADMISSION: 06/05/2017 CHIEF COMPLAINT: Scrotal pain and swelling, as well as lip and facial swelling. HISTORY OF PRESENT ILLNESS: This is a 46-year-old male with a known history of HIV/AIDS who is not o n retrovirals due to the complexity of the regimen. He also has a history of MRSA. He was admitted in March with MRSA cellulitis of the left knee. He states that over the last week he has had incr easing swelling and pain, erythema of both the scrotal area and left upper lip. He is not having dif ficulty urinating. No fevers or chills. He does cough, but no shortness of breath. REVIEW OF SYSTEMS: A 10-point review of systems was obtained and was negative. PAST MEDICAL HISTORY: 1. History of HIV/AIDS, with a CD4 count of 16, not on any medical treatment. 2. History of MRSA cellulitis. 3. History of stomach cancer. 4. History of pulmonary embolism. SOCIAL HISTORY: Does smoke a pack a day. Drinks about a pint of whiskey daily. FAMILY HISTORY: Reviewed and noncontributory. PHYSICAL EXAM: VITAL SIGNS: Blood pressure is 91/54, heart rate 84, temperature is 38.9, oxygen sat uration is 90% on room air. GENERAL: The patient is cachectic looking, no apparent distress. HEENT : Some erythema on the right side of the face, but swelling on the upper left lip and nasolabial fol d. No obvious focal area of fluctuance. Multiple scabs. NECK: Supple. No thyromegaly. LUNGS: G ood effort. Clear to auscultation bilaterally. CARDIOVASCULAR: Regular rate and rhythm. No murmur s, rubs, or gallops. ABDOMEN: Positive bowel sounds, soft, nontender, nondistended. : Significa nt scrotal swelling with 2 small openings with some purulent material in the base. There is also ing uinal tenderness, and also in the suprapubic region, as well as some lymphangitis extending to the th ighs. EXTREMITIES: No clubbing, cyanosis, or edema. SKIN: Some scabbing in different areas. NEUR OLOGIC: Alert and oriented x3. Moving all 4 extremities. PSYCH: Normal mood and affect. LABS: White blood cell count 8, hemoglobin 12. Sodium 132, potassium 3.7, creatinine 0.9, albumin [address] does not show any after discrete abscess. Chest x-ray is normal personally reviewe d and interpreted. ASSESSMENT: This is a 46-year-old male with probable methicillin-resistant Staphylococcus aureus rossi lulitis of left upper lip, and scrotum, and perineal area. 1. Methicillin-resistant Staphylococcus aureus cellulitis of upper lip and scrotum. I have discusse d the case with Infectious Disease and with the ER physician. The ER will be calling both ENT and Ur ology to see the patient. He probably will need drainage of both of these areas at some point. I robledo ve started vancomycin. Infectious Disease has added both clindamycin and Zosyn. He does seem a adonay le bit dry, although not overtly septic. His blood pressure is a little bit on the softer side. We will give IV fluids, but his lactate is normal. 2. History of human immunodeficiency virus/acquire immune deficiency syndrome. The patient has refu sed treatment in the past. 3. Alcohol use. We will watch for any withdrawal, though it has not been noted in the past. /[id number]/MODL
[2017-06-05] MEDS: PIPERACILLIN/TAZO 3.375 GM/DEX 50 ML IV SCH ×3 (17:55→23:40)
--- NOTE | 2017-06-05 18:22 | PDCONSULT ---
Water Chaser Note: S: 46 year old male with past medical history of AIDs, prior history of MRSA presents with left upper lip abscess. O: Patient was alert, non toxic on presentation. Vital signs stable. Obvious left upper lip abscess approximately 2 cm in diameter appreciated with overlying scabs. Some erythema noted around cheeks. ENT exam otherwise unremarkable. A/P: 46 year old male with left upper lip abscess. Will plan to incise and drain in the OR. Patient was also evaluated by Dr. Cazares.
[2017-06-05] MEDS ORDERED: HYDROmorphONE/DILAUDID 1 MG/ML INJ IVP PRN (18:46)
[2017-06-05] MEDS ORDERED: NALOXONE HCL 0.4 MG/ML INJ IVP PRN (18:46)
[2017-06-05] MEDS ORDERED: fentaNYL 100 MCG/2 ML INJ IVP PRN (18:46)
--- NOTE | 2017-06-05 19:28 | GOP ---
[f rep st] OPERATIVE REPORT DATE OF OPERATION: 06/05/2017 SURGEON: Chuy Cazares MD DIRECTOR OF FINANCE: Debra Boss PA-C ANESTHESIA: General. PREOPERATIVE DIAGNOSIS: Left upper lip abscess. POSTOPERATIVE DIAGNOSIS: Left upper lip abscess. PROCEDURE PERFORMED: Incision and drainage of left upper lip abscess. FINDINGS: SPECIMENS: Cultures x2. ESTIMATED BLOOD LOSS: Less than 5 mL. INDICATIONS: Left upper lip abscess. DESCRIPTION OF PROCEDURE: Patient is a 46-year-old male brought to the operating room room where gen eral anesthesia was induced, and endotracheal intubation was performed. The lip was prepped and drap ed in sterile fashion. Obvious fluctuance was noted in the left upper lip. A 15 blade was used to perform an I and D in the upper lip with cultures sent immediately. A clamp was then used to spread the cavity open with extr usion of all the pus under pressure. The cavity was then copiously irrigated with peroxide and packe d with quarter-inch Iodoform gauze. The patient was then prepped and draped for a scrotal abscess, w hich was performed by Urology. Please see their dictation for the remainder of the surgery. CHIEF COMPLAINT: Lip abscess. HISTORY OF PRESENT ILLNESS: Patient is a 46-year-old male, known HIV-positive, with a history of [facility], who was brought into the emergency room this afternoon with a scrotal abscess. Patient was subseq uently also noted during emergency room evaluation to have a left upper lip abscess. He has noted sw elling in this region for the last couple days. Risks, benefits, indications, options, and possible complications of this procedure were discussed at length with the patient. Prior to signing informed consent, he was given a chance to have his questions answered. /[id number]/MODL
[2017-06-05] MEDS: NS 1,000 ML IV SCH (20:18)
--- NOTE | 2017-06-05 20:46 | POSTANESTH ---
Post Anesthetic Evaluation Cardiovascular Status: Normal, Stable Respiratory Status: Normal, Stable Level of Consciousness/Mental Status: Can Participate in Eval Pain Control: Adequate, Prn Tx Ordered Nausea/Vomiting Control: Adequate, Prn Tx Ordered Complications Possibly Related to Anesthesia: None Noted
[2017-06-05] MEDS: CLINDAMYCIN 600 MG/DEXTROSE 50 ML IV SCH (21:52)
--- NOTE | 2017-06-05 21:53 | GOP ---
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 PROCEDURE PERFORMED: Debridement of necrotic tissue in scrotum and suprapubic region and drainage of abscesses. FINDINGS: SPECIMENS: Tissue to be sent for culture. ESTIMATED BLOOD LOSS: 10 cc. DESCRIPTION OF PROCEDURE: After informed consent obtained, patient was placed in low lithotomy position. He had some necrotic tissue at the inferior scrotum , approximately 2 cm, which was excised until there were bleeding edges. This was mainly in the right inferior scrotum. The necrotic tissue was excised. There were viable tissues surrounding it. There was no obvious deep abscess in the scrotum. There was an area of the suprapubic region, approximately 1 cm, which was opened. There was an abscess in suprapubic area which was opened and drained. The edges of it were necrotic and were excised. The Juancarlos drain was placed in that wound which was adequately opened approximately 2 cm horizontally. The wound was then irrigated with a Pulsavac. Appropriate dressings were placed. He was returned to the recovery room in excellent condition. [place] drain can be removed in a few days. Recommend consult with wound care. ID has already consulted and placed on broad-spectrum antibiotics. COMPLICATIONS: None. DRAINS: Juancarlos drain in the suprapubic wound. /[id number]/MODL MTDD
[2017-06-06] MEDS: VANCOMYCIN HCL/NORMAL SALINE 250 ML IV SCH ×2 (02:18→14:22)
--- NOTE | 2017-06-06 03:24 | GCON ---
[f rep st] CONSULTATION DATE OF CONSULTATION: 06/05/2017 REFERRING PHYSICIAN: Landy Bennett MD HISTORY OF PRESENT ILLNESS: The patient is a 46-year-old gentleman with history of end-stage HIV wit h noncompliance with his HIV medication. He states for 4 days he has had rapidly progressing pain, s welling, and erythema. He says it started in the suprapubic region and then spread to his penis and then scrotum. He denies any specific bowel problems. He states it is extremely painful and rapidly progressing, especially over the last 24 hours. He has a history of MRSA. He has currently received already vancomycin and Zosyn and Infectious Disease is following him. He also has a nasolabial absc ess and ENT is following him. He has severe immunocompromise and a CD4 count of only 16 in March. He denies any rigors. He denies any fevers or chills. He is having pain diffusely through his gen ital and suprapubic area and medial thighs. He had just been hospitalized in 03/2017 due to MRSA ski n and soft tissue infections. ALLERGIES: He is allergic to cephalosporins. Is listed on his allergies he does not tolerate amoxic illin well. He notes that he does tolerate amoxicillin. IMAGING: The CT scan reveals soft tissue inflammation. No discrete masses are noted. Blood culture s have been performed. Scrotal ultrasound is concerning a right common femoral DVT but no specific t esticular abscess or testicle issues noted. Very thickened scrotal wall. PHYSICAL EXAMINATION: GENERAL: He is in moderate distress. His abdomen was soft, nontender, nondis tended. GENITOURINARY: He does have suprapubic tenderness. He has inguinal tenderness. He has testicle and penis tenderness. He has buttocks tenderness. There is no palpable fluctuance or crepitus noted. He has severe erythema and edema of his scrotum and penis. He has 2 areas of black eschar on the inf erior scrotum and also in the suprapubic region. He states the black eschar in the suprapubic region was 1 of the first symptoms he noticed. Skin is very hard in that area on the whole suprapubic lb on. 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 I will consult General Surger y to assist in the operating room. Patient understands that he may need significant debridement of t he scrotum, perineal, penis, and also suprapubic skin and other tissue. He understands that he may e nd up with his testicles put in a thigh patch. He understands the risks of the procedure; they were clearly outlined to him. He understands also the risk of with not proceeding with the procedur e. There risks were explained. He wishes to proceed. /[id number]/MODL
[2017-06-06] MEDS: PIPERACILLIN/TAZO 3.375 GM/DEX 50 ML IV SCH ×2 (05:00→12:09)
[2017-06-06 05:02] LABS: PLATELET COUNT 129 10^3/uL (150-400)
[2017-06-06] MEDS: CLINDAMYCIN 600 MG/DEXTROSE 50 ML IV SCH ×2 (05:38→14:22)
[2017-06-06] MEDS: NS 1,000 ML IV SCH (05:39)
--- NOTE | 2017-06-06 07:48 | PDMN ---
Medical Necessity Medical necessity: M70 cellulitis: MRSA of upper lip and scrotum: I/D upper lip abscess, debridement of necrotic tissue in scrotum and suprapubic region and drainage of abscesses with IV abx and further monitoring needed. - pt with hx of MRSA and HIV
--- NOTE | 2017-06-06 09:18 | HOSPPROG ---
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 -appreciate ENT/urology assistance, gregorio drains in place and cultures with MRSA -discussed care plan with Dr Webber -tay zosyn and clindamycin, continue with vanco for MRSA -recheck blood cultures tomorrow -ECHO ordered per ID # AIDS: CD4 16, off anti-retrovirals -Likely needs prophylaxis per ID but not ordering yet #hx medical non compliance #anemia/thrombocytopenia DISPO > 2 mdts bc of severity of infections and need for IV abx DVT prophy PCP- followed when he wants to go to [place]/ID FULL CODE Subjective: Says pain OK. No CP/SOB. Long talk about his life with HIV/AIDS. Objective: Vital Signs Temp Pulse Resp BP Pulse Ox 97.2 F 75 12 89/54 L 95 06/06/17 08:00 06/06/17 08:00 06/06/17 08:00 06/06/17 08:00 06/06/17 08:00 Microbiology 06/05/17 16:20 Gram Stain - Final Groin - Tissue 06/05/17 16:20 Gram Stain - Final Mouth - Swab 06/05/17 16:20 Gram Stain - Final Mouth - Swab Laboratory Results 06/06/17 04:30 06/06/17 04:30 06/04/17 06/05/17 06/06/17 11:59 11:59 11:59 Intake Total 3700 Output Total 380 Balance 3320 PT 14.3 SEC (12.0-15.0) 06/05/17 12:30 INR 1.09 (0.83-1.16) 06/05/17 12:30 - Time Spent With Patient Time Spent with Patient: greater than 35 minutes Time Spent with Patient: Greater than 35 minutes spent on this patients care, greater than 50% of time spent counseling, educating, and coordinating care regarding the above mentioned plan. - Pending Discharge Pending Discharge Within 48 Hours: No - Physical Exam Constitutional: no apparent distress, chronically ill appearing, unkempt Ears, Nose, Mouth, Throat: other (erythema/swelling) Cardiovascular: regular rate and rhythym Respiratory: no respiratory distress, no rales or rhonchi, clear to auscultation Gastrointestinal: normoactive bowel sounds, No guarding, No rebound Psychiatric: interacting appropriately, not encephalopathic ICD10 Worksheet Patient Problems: Problems Problem Status Onset Acquired immune deficiency syndrome (AIDS) Acute Cellulitis and abscess of face Acute Infection in abdomen Acute Methicillin resistant Staphylococcus aureus infection Acute ~12/31/16 Noncompliance with medications Acute Candidiasis of the esophagus Active Pneumocystosis jiroveci pneumonia Active Substance abuse Active Cellulitis Acute Left leg cellulitis Acute Sciatica Acute
[2017-06-06] MEDS: oxyCODONE IR 5 MG TAB PO PRN ×3 (10:00→18:20)
[2017-06-06] MEDS: ENOXAPARIN 40 MG/0.4 ML SYR SC SCH (10:58)
--- NOTE | 2017-06-06 14:49 | WOCRNPDOC ---
WOCRN Advanced Assessment Note - Skin Integrity Problem, Advanced Assess Right Forehead Abrasion Dressing Type: Open to Air Exudate Characteristic(s): Dried Tiki Wound Tissue: Erythema Tiki Wound Swelling: Mild Wound Bed Color: Brown Wound Bed Constitution: Scab Site Measurement - Head-to-Toe Length X Width X Depth (cm): 1cmx0.4cmx0.2cm Skin Integrity Problem Comment: Intact, dried scab noted on patient's R forehead , sunken in indicating some depth. Erythema in immediate periwound tissues. Would benefit from a dressing w/ Silvasorb gel to confer moisture and anti- microbial benefits, but he refused this intervention stating "you need to let it dry out because all that crap is just going to cause infection." I told him he was free to reconsult should he change his mind. Right Upper Medial Thigh Dressing Type: Open to Air Exudate Amount: None Exudate Characteristic(s): None Tiki Wound Tissue: Erythema Tiki Wound Swelling: Mild Wound Bed Color: Red, Yellow Wound Bed Constitution: Red/[place] - Non Granular Tissue, Adhered Slough Wound Edges: Well Defined Site Odor: None Site Measurement - Head-to-Toe Length X Width X Depth (cm): 0.4cmx0.4cmx0.2cm Skin Integrity Problem Comment: Discrete, punctate-like wound on patient's R inner thigh, full-thickness w/ dried non-granulating tissue and streaks of slough. There is mild periwound erythema. 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 Please reconsult if wound worsens or if patient decides he will allow a dressing to be placed. Right Ischial Tuberosity Dressing Type: Open to Air Exudate Amount: None Exudate Characteristic(s): None Tiki Wound Tissue: Blanching, Intact Skin Integrity Problem Comment: 1.5cm diameter area of blanching erythema noted directly over patient's L ischial tuberosity, concerning for possible development of pressure injury. Patient is currently on an Accu-max mattress with pump. Will place additional order for nuring to monitor site carefully, as patient is very cachectic.
--- NOTE | 2017-06-06 15:33 | PCMIDPN ---
Assessment/Plan: # Disseminated disease due to MRSA including bacteremia, scrotal abscess/ cellulitis s/p I&D and lymphangitis R thigh, L labial abscess, S/P I&D. WBC elevation expected with severity of infection, some recession of R thigh erythema based on comparisons of prior exams --continue vancomycin, check trough tomorrow --dc zosyn and clindamycin, likely all disease mediated by MRSA --recheck blood culture tomorrow --check ECHO # AIDS: CD4 16, off anti-retrovirals. Likely needs prophylaxis, will await stabilization the an at back these agents at some point. Dr. Carey discussed the importance of antiretrovirals with him, did not readdress today. Microbiology 06/05/17 13:50 Blood Cx 06/30 MRSA 06/05/17 16:20 Mouth - MRSA 06/05/17 16:20 Groin - MRSA Meds vancomycin 1gm IV q12h zosyn Clindamycin Subjective: Patient reports ongoing pain in the scrotum. He states that he is not going to smoke cigarettes or use marijuana and get "thrown out this time " "I am nicer to you this time, right? "Having stressed about electricity being turned off at his apartment. States his fiancee is coming later. Objective: Vital Signs Temp Pulse Resp BP Pulse Ox 36.4 C 80 18 87/55 L 98 06/06/17 12:00 06/06/17 12:00 06/06/17 12:00 06/06/17 12:00 06/06/17 12:00 Microbiology 06/05/17 16:20 Gram Stain - Final Mouth - Swab 06/05/17 16:20 Gram Stain - Final Mouth - Swab 06/05/17 16:20 Gram Stain - Final Groin - Tissue Laboratory Results 06/06/17 04:30 06/06/17 04:30 06/05/17 06/06/17 06/07/17 05:59 05:59 05:59 Intake Total 3700 Output Total 380 Balance 3320 - Physical Exam General Appearance: alert, thin, other (Disheveled) EENT: pale conjunctiva, poor dentition Respiratory: lungs clear, No accessory muscle use Cardiac/Chest: regular rate, rhythm, No systolic murmur Extremities: erythema (Right thigh), No pedal edema Abdomen: normal bowel sounds, non-tender, soft Male Genitalia: [place], other (Diffuse Scrotal erythema and edema with drain right lateral scrotum and suprapubic region. Mild induration.) Skin: signs of IVDA Neuro/Psych: alert, oriented x 3, other (Cooperative) - Line/s PIV Lines: other (Left wrist), No drainage - Time Spent With Patient Time Spent with Patient: greater than 35 minutes Time Spent with Patient: Greater than 35 minutes spent on this patients care, greater than 50% of time spent counseling, educating, and coordinating care regarding the above mentioned plan. ICD10 Worksheet Patient Problems: Problems Problem Status Onset Acquired immune deficiency syndrome (AIDS) Acute Cellulitis and abscess of face Acute Infection in abdomen Acute Methicillin resistant Staphylococcus aureus infection Acute ~12/31/16 Noncompliance with medications Acute Candidiasis of the esophagus Active Pneumocystosis jiroveci pneumonia Active Substance abuse Active Cellulitis Acute Left leg cellulitis Acute Sciatica Acute
--- NOTE | 2017-06-06 16:23 | ASMTCASEMG ---
Living Arrangements What is your living Answers: With Other (Not Family) arrangement? Who do you live with? Type Of Residence What kind of residence do Answers: House you live in? Discharge Plan Comments Coordination Status Comments Notes: Pt is a 46 y/o man admitted for MRSA, abdominal wall infection, scrotal infection and facial cellulitis. Therapies are recommending HC. Pt is currently on 3 types of antibiotics. It is uncertain what pts antibiotics needs are at time of d/c. CM met w/ pt for dispo planning. Pt requested that CM come back when his fiance is here. Pt reports that the amount of meds that he has are overwhelming. Pt contributes the number of meds to his hospitalizations. CM to follow. Plan: HC Date Signed: 06/06/2017 04:23 PM Electronically Signed By:BEL Mcintyre
--- NOTE | 2017-06-06 17:19 | SOAPPROG ---
SOAP Progress Note Assessment/Plan: Assessment: S/p I&D of left nasolabial abscess. Packing still in place. - Will remove packing tomorrow 06/06/17 17:18 Subjective: S/p I&D of left nasolabial abscess. On antibiotics per infectious disease. Objective: Vital Signs Temp Pulse Resp BP Pulse Ox 37.1 C 86 14 94/55 L 95 06/06/17 16:00 06/06/17 16:00 06/06/17 16:00 06/06/17 16:00 06/06/17 16:00 Microbiology 06/05/17 16:20 Gram Stain - Final Mouth - Swab 06/05/17 16:20 Gram Stain - Final Mouth - Swab 06/05/17 16:20 Gram Stain - Final Groin - Tissue Laboratory Results 06/06/17 04:30 06/06/17 04:30 06/05/17 06/06/17 06/07/17 05:59 05:59 05:59 Intake Total 3700 Output Total 380 Balance 3320 PT 14.3 SEC (12.0-15.0) 06/05/17 12:30 INR 1.09 (0.83-1.16) 06/05/17 12:30 Still with mild induration left upper lip No active purulent drainage ICD10 Worksheet Patient Problems: Problems Problem Status Onset Acquired immune deficiency syndrome (AIDS) Acute Cellulitis and abscess of face Acute Infection in abdomen Acute Methicillin resistant Staphylococcus aureus infection Acute ~12/31/16 Noncompliance with medications Acute Candidiasis of the esophagus Active Pneumocystosis jiroveci pneumonia Active Substance abuse Active Cellulitis Acute Left leg cellulitis Acute Sciatica Acute
[2017-06-07] MEDS: VANCOMYCIN HCL/NORMAL SALINE 250 ML IV SCH ×2 (02:52→15:43)
[2017-06-07] MEDS: oxyCODONE IR 5 MG TAB PO PRN ×4 (02:52→22:00)
[2017-06-07] MEDS: ENOXAPARIN 40 MG/0.4 ML SYR SC SCH (07:28)
--- NOTE | 2017-06-07 10:40 | PCMIDPN ---
Assessment/Plan: Assessment: Multifocal MRSA disease. 1. Bacteremia. 2. Right thigh abscess. 3. Scrotal abscess. 4. Left upper lip abscess. Covered currently on vancomycin monotherapy. Clinically he feels better. No further fevers. Follow-up blood cultures from today are pending. Plan to continue on monotherapy with vancomycin and check levels. Trough ordered for this afternoon. HIV/aids-noncompliant with medication. Long discussion with patient about restarting regimen once stable from MRSA infection. Plan: 1. Continue IV vancomycin. 2. Follow up on trough level this afternoon. 06/07/17 10:38 Subjective: Patient resting in his hospital bed in a darkened room. He notes continued headache and pain in his lip, thigh and scrotum. Patient admits that he feels generally better since admission. Still wishes more pain control and ability to sleep. Objective: Vancomycin #2 Vital Signs Temp Pulse Resp BP Pulse Ox 37 C 78 16 94/57 L 95 06/07/17 07:51 06/07/17 07:51 06/07/17 07:51 06/07/17 07:51 06/07/17 07:51 Microbiology 06/05/17 16:20 Gram Stain - Final Mouth - Swab 06/05/17 16:20 Gram Stain - Final Groin - Tissue 06/05/17 16:20 Gram Stain - Final Mouth - Swab Laboratory Results 06/06/17 04:30 06/07/17 05:03 06/06/17 06/07/17 06/08/17 05:59 05:59 05:59 Intake Total 3700 240 Output Total 380 1550 Balance 3320 -1310 - Physical Exam General Appearance: WD/WN, alert, no apparent distress, thin Respiratory: lungs clear, normal breath sounds, No respiratory distress Cardiac/Chest: regular rate, rhythm, No bradycardia, No tachycardia, No systolic murmur Extremities: No non-tender (Right lower extremity with painful thigh lesion.), No normal inspection Skin: normal color, warm/dry, No rash Neuro/Psych: alert, normal mood/affect, oriented x 3 ICD10 Worksheet Patient Problems: Problems Problem Status Onset Acquired immune deficiency syndrome (AIDS) Acute Cellulitis and abscess of face Acute Infection in abdomen Acute Methicillin resistant Staphylococcus aureus infection Acute ~12/31/16 Noncompliance with medications Acute Candidiasis of the esophagus Active Pneumocystosis jiroveci pneumonia Active Substance abuse Active Cellulitis Acute Left leg cellulitis Acute Sciatica Acute
[2017-06-07] MEDS: LORazepam 1 MG TAB PO PRN ×2 (11:17→22:01)
[2017-06-07] MEDS: LIDOCAINE 5% 1 EA PATCH TD SCH (11:17)
--- NOTE | 2017-06-07 12:00 | SOAPPROG ---
SOAP Progress Note Assessment/Plan: Pt with MRSA left upper lip abcess. No fevers. Responding to Vanco. o:- wick removed, 0.5cc pus expressed Plan:Pt with multifocal MRSA, lip abcess. Wick removed today. Continue on abx. Please let us know if we can be of any further assistance. 06/07/17 11:58 Objective: Vital Signs Temp Pulse Resp BP Pulse Ox 37 C 78 16 94/57 L 95 06/07/17 07:51 06/07/17 07:51 06/07/17 07:51 06/07/17 07:51 06/07/17 07:51 Microbiology 06/05/17 16:20 Gram Stain - Final Mouth - Swab 06/05/17 16:20 Gram Stain - Final Groin - Tissue 06/05/17 16:20 Gram Stain - Final Mouth - Swab Laboratory Results 06/06/17 04:30 06/07/17 05:03 06/06/17 06/07/17 06/08/17 05:59 05:59 05:59 Intake Total 3700 240 Output Total 380 1550 Balance 3320 -1310 PT 14.3 SEC (12.0-15.0) 06/05/17 12:30 INR 1.09 (0.83-1.16) 06/05/17 12:30 ICD10 Worksheet Patient Problems: Problems Problem Status Onset Acquired immune deficiency syndrome (AIDS) Acute Cellulitis and abscess of face Acute Infection in abdomen Acute Methicillin resistant Staphylococcus aureus infection Acute ~12/31/16 Noncompliance with medications Acute Candidiasis of the esophagus Active Pneumocystosis jiroveci pneumonia Active Substance abuse Active Cellulitis Acute Left leg cellulitis Acute Sciatica Acute
--- NOTE | 2017-06-07 16:20 | HOSPPROG ---
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 Denies cp/sob. Objective: Vital Signs Temp Pulse Resp BP Pulse Ox 100.0 F 83 16 98/58 L 92 06/07/17 12:00 06/07/17 12:00 06/07/17 12:00 06/07/17 12:00 06/07/17 12:00 Microbiology 06/05/17 16:20 Gram Stain - Final Groin - Tissue 06/05/17 16:20 Gram Stain - Final Mouth - Swab 06/05/17 16:20 Gram Stain - Final Mouth - Swab Laboratory Results 06/06/17 04:30 06/07/17 05:03 06/06/17 06/07/17 06/08/17 11:59 11:59 11:59 Intake Total 3700 240 Output Total 380 1550 Balance 3320 -1310 PT 14.3 SEC (12.0-15.0) 06/05/17 12:30 INR 1.09 (0.83-1.16) 06/05/17 12:30 - Time Spent With Patient Time Spent with Patient: greater than 25 minutes Time Spent with Patient: Greater than 25 minutes spent on this patients care, greater than 50% of time spent counseling, educating, and coordinating care regarding the above mentioned plan. - Pending Discharge Pending Discharge Within 24 Hours: No - Physical Exam Constitutional: chronically ill appearing, unkempt Ears, Nose, Mouth, Throat: moist mucous membranes, other (erythema in B cheekss less than yesterday, swelling around nares) Cardiovascular: regular rate and rhythym Respiratory: no respiratory distress, no rales or rhonchi, clear to auscultation Gastrointestinal: normoactive bowel sounds, soft, non-tender abdomen Psychiatric: not encephalopathic, flat affect ICD10 Worksheet Patient Problems: Problems Problem Status Onset Acquired immune deficiency syndrome (AIDS) Acute Cellulitis and abscess of face Acute Infection in abdomen Acute Methicillin resistant Staphylococcus aureus infection Acute ~12/31/16 Noncompliance with medications Acute Candidiasis of the esophagus Active Pneumocystosis jiroveci pneumonia Active Substance abuse Active Cellulitis Acute Left leg cellulitis Acute Sciatica Acute
--- NOTE | 2017-06-07 16:42 | ECHO ---
[email or web address] [address] [address] Main: [phone] Fax: Transthoracic Echocardiogram Name: RICKEY MONTAGUE MR#: [id number] Study Date: 06/07/2017 Study Time: 09:41 AM Date of : 1970 Age: 46 year(s) Height: 182.9 cm (72 in.) Weight: 58.97 kg (130 lb.) BSA: 1.77 m2 Gender: Male Examination: Echo Indication: IVDU, MRSA Bacteremia Image Quality: Contrast: Requested by: Nathaly Webber BP: 94 mmHg/57 mmHg Heart Rate: Rhythm: Normal sinus rhythm Indication: IVDU, MRSA Bacteremia Procedure Staff [employer] Cadet: Rodrigue Mcadams Reading Physician: Camden Martinez Requesting Provider: Conclusions: Normal size left ventricle. No LV hypertrophy. Normal global systolic LV function. EF is 63 %. No regional wall motion abnormality. Normal RV function. The left atrium is normal in size. The right atrium is normal in size. The mitral valve is normal in appearance. Trivial to mild mitral regurgitation. The aortic valve is tri-leaflet. Mild tricuspid regurgitation is present. Measurements: Chambers Valvular Assessment AV/MV Valvular Assessment TV/PV Normal Normal Normal Name Value Range Name Value Range Name Value Range Ao Teresa (MM): 3.4 cm (2.2 cm-3.7 AV Vmax: 1.13 m/s (1 m/s-1.7 TR Vmax: 2.76 mm/s ( - ) cm) m/s) TR PGmax: 30 mmHg ( - ) IVSd (2D): 0.7 cm (0.6 cm-1.1 AV maxP mmHg ( - ) syst. PAP: 35 mmHg ( - ) cm) LVOT Vmax: 0.80 m/s (0.7 m/s-1.1 PV Vmax: 0.76 m/s (0.6 m/s-0.9 LVDd (2D): 4.4 cm (4.2 cm-5.9 m/s) m/s) cm) MV E Vmax: 0.66 m/s ( - ) PV PGmax: 2 mmHg ( - ) LVDs (2D): 2.9 cm (2.1 cm-4 MV A Vmax: 0.48 m/s ( - ) cm) MV E/A: 1.38 ( - ) LVPWd (2D): 0.9 cm (0.6 cm-1 cm) LVEF (2D): 63 (>=54 %) Continued Measurements: Patient: RICKEY MONTAGUE Study Date: 06/07/2017 Page 1 of 2 09:41 AM Chambers Valvular Assessment AV/MV Valvular Assessment TV/PV Name Value Name Value Name Value LADs Lon.1 cm MV E/E' Septal: 5.40 CVP (est.): 5 mmHg LA Area: 12.9 cm2 MV E/E' Lateral: 4.20 Findings: Left Ventricle: Normal size left ventricle. No LV hypertrophy. Normal global systolic LV function. EF is 63 %. No regional wall motion abnormality. Normal diastolic LV function. Right Ventricle: Normal size right ventricle. Normal RV function. Left Atrium: The left atrium is normal in size. Right Atrium: The right atrium is normal in size. Mitral Valve: The mitral valve is normal in appearance. Trivial to mild mitral regurgitation. Prominant chordae with increased echo density which appeared in the 2010 TTE and 04/14 TTE. 2011 was followed up with a SULEIMAN which was without abnormalities.. Aortic Valve: The aortic valve is normal in appearance and function. The aortic valve is tri-leaflet. The aortic valve is tri-leaflet and functions normally. Tricuspid Valve: The tricuspid valve is normal in appearance and function. The pulmonary artery pressure is normal. Mild tricuspid regurgitation is present. Pulmonic Valve: Pulmonary valve not well visualized. Aorta: The aorta is normal. Pericardium: No pericardial effusion. Exam Comments: There is no obvious vegetation noted.. (No Signature Object) Patient: RICKEY MONTAGUE Study Date: 06/07/2017 Page 2 of 2 09:41 AM [id number]
[2017-06-07 21:24] LABS: %CD3 (T CELLS) 61 % (58-86); %CD4 (T CELLS) 2 % (32-64); %CD8 (T CELLS) 58 % (13-40); 4/8 RATIO 0 (>=0.9); CD3 (T CELLS) 404 cells/mcL (550-2202); CD4 (T CELLS) 13 cells/mcL (365-1437); CD45 TOTAL LYMPH COUNT 0.66 thou/mcL (0.82-2.84); CD8 (T CELLS) 387 cells/mcL (145-846)
[2017-06-07] MEDS: ACETAMINOPHEN 325 MG TAB PO PRN (22:01)
[2017-06-07] MEDS: PATCH REMOVAL 1 EA PATCH TD SCH (22:05)
[2017-06-08] MEDS: oxyCODONE IR 5 MG TAB PO PRN ×5 (02:12→22:00)
[2017-06-08] MEDS: VANCOMYCIN HCL/NORMAL SALINE 250 ML IV SCH ×3 (02:12→17:36)
[2017-06-08] MEDS: LORazepam 1 MG TAB PO PRN ×3 (08:40→22:01)
[2017-06-08] MEDS: ACETAMINOPHEN 325 MG TAB PO PRN (08:40)
[2017-06-08] MEDS: ENOXAPARIN 40 MG/0.4 ML SYR SC SCH (08:41)
[2017-06-08] MEDS: LIDOCAINE 5% 1 EA PATCH TD SCH (08:41)
--- NOTE | 2017-06-08 08:55 | PCMIDPN ---
Assessment/Plan: # multifocal disease due to MRSA including bacteremia, scrotal abscess/ cellulitis s/p I&D and lymphangitis R thigh, L labial abscess, S/P I&D. Persistent bacteremia but only on antibiotic 2 days prior to repeat. Persistent low grade fever. ECHO reviewed with old MV abnormalities, may not be able to completely exclude endocarditis. Faint Erythema R lateral thigh/hip persists, medial thigh drip box tender, significant reduction in scrotal swelling --continue vancomycin, increase dose 1gm IV q8 based on trough of 6, repeat trough before 4th dose --Repeat CBC, BMP tomorrow. --repeat blood cultures tomorrow --discuss w cards echo findings, not sure SULEIMAN would change duration of therapy --R leg imaging as described below # R leg swelling, known partial DVT R femoral vein, query septic thrombophlebitis --repeat US to eval if partial DVT of femoral vein extended --if right leg swelling is not explained by DVT may have to consider additional imaging to look for pyomyositis, i.e. 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 Needs prophylaxis and ARV, will await stabilization (at least clearance of blood cultures) to start these therapies. Microbiology 06/07/17 Blood cx 1/2 GPCs 06/05/17 13:50 Blood Cx 2/2 MRSA 06/05/17 16:20 Mouth - MRSA 06/05/17 16:20 Groin - MRSA Meds vancomycin 1gm IV q12, #3 Subjective: patient describes significant improvement in scrotal swelling and pain Objective: Vital Signs Temp Pulse Resp BP Pulse Ox 38.0 C 90 14 117/68 93 06/08/17 08:00 06/08/17 08:00 06/08/17 08:00 06/08/17 08:00 06/08/17 08:00 Microbiology 06/05/17 16:20 Gram Stain - Final Groin - Tissue 06/05/17 16:20 Gram Stain - Final Mouth - Swab 06/05/17 16:20 Gram Stain - Final Mouth - Swab Laboratory Results 06/06/17 04:30 06/07/17 05:03 06/07/17 06/08/17 06/09/17 05:59 05:59 05:59 Intake Total 240 Output Total 1550 3550 650 Balance -1310 -3550 -650 - Physical Exam General Appearance: alert, no apparent distress EENT: poor dentition, other (seborrhea over nasolabial fold) Respiratory: lungs clear, No accessory muscle use Cardiac/Chest: regular rate, rhythm, systolic murmur Extremities: swelling (R thigh with faint erythema laterally upper thigh and hip ) Abdomen: non-tender, soft, other (scaphoid) Male Genitalia: testicular tenderness (but improved), [place], scrotal edema (40% improvement in swelling compared to 2 days ago), other (diffuse scrotal erythema but fainter, suprapubic drain/opening and R lateral scrotum) Skin: other (seborrhea) Neuro/Psych: alert, normal mood/affect - Time Spent With Patient Time Spent with Patient: greater than 35 minutes Time Spent with Patient: Greater than 35 minutes spent on this patients care, greater than 50% of time spent counseling, educating, and coordinating care regarding the above mentioned plan. ICD10 Worksheet Patient Problems: Problems Problem Status Onset Acquired immune deficiency syndrome (AIDS) Acute Cellulitis and abscess of face Acute Infection in abdomen Acute Methicillin resistant Staphylococcus aureus infection Acute ~12/31/16 Noncompliance with medications Acute Candidiasis of the esophagus Active Pneumocystosis jiroveci pneumonia Active Substance abuse Active Cellulitis Acute Left leg cellulitis Acute Sciatica Acute
--- NOTE | 2017-06-08 14:20 | HOSPPROG ---
Hospitalist Progress Note Assessment/Plan: 46-year-old male admitted with MR BOSS bacteremia and placed on antibiotics. Known HIV with CD4 count of 16 but currently off antivirals. Patient is new to me today -MR BOSS bacteremia with disseminated disease including scrotal abscess, cellulitis that is status post I&D and lymphangitis of the right thigh; left nasal labial abscess post I and D. -currently on vancomycin for MR BOSS and will recheck blood cultures per ID recommendations. -echo does not definitively rule out mitral valve disease although a SULEIMAN may not change the course of his needed antibiotic. -ultrasound of the right lower extremity has been reordered to reassess due to the persistence of right lateral thigh erythema. Reports checking for both a persistent DVT and fluid collection -aids: CD4 is 16 off antiretrovirals. Id is not currently ordering prophylaxis. -history of noncompliance -history of polysubstance abuse but he denies recent alcohol use. -watch for withdrawal symptoms though none are noted at this time. -anemia and thrombocytopenia which appear to be stable Plan: Continue vancomycin, ultrasound of the right lower extremity, follow blood cultures, and follow the anemia and thrombocytopenia. Subjective: Reports he is tired and feels weak. He has loose stool and does not like to eat because he soiled himself. Denies fever cough or chest pain. Objective: Vital Signs Temp Pulse Resp BP Pulse Ox 37.1 C 80 16 85/44 L 92 06/08/17 12:00 06/08/17 12:00 06/08/17 12:00 06/08/17 12:00 06/08/17 12:00 Microbiology 06/05/17 16:20 Gram Stain - Final Mouth - Swab 06/05/17 16:20 Gram Stain - Final Mouth - Swab 06/05/17 16:20 Gram Stain - Final Groin - Tissue Laboratory Results 06/06/17 04:30 06/07/17 05:03 06/07/17 06/08/17 06/09/17 05:59 05:59 05:59 Intake Total 240 Output Total 1550 3550 650 Balance -1310 -3550 -650 PT 14.3 SEC (12.0-15.0) 06/05/17 12:30 INR 1.09 (0.83-1.16) 06/05/17 12:30 - Time Spent With Patient Time Spent with Patient: greater than 35 minutes Time Spent with Patient: Greater than 35 minutes spent on this patients care, greater than 50% of time spent counseling, educating, and coordinating care regarding the above mentioned plan. - Pending Discharge Pending Discharge Within 24 Hours: No Pending Discharge Within 48 Hours: No - Physical Exam Constitutional: no apparent distress, chronically ill appearing, unkempt Eyes: PERRL, anicteric sclera Ears, Nose, Mouth, Throat: moist mucous membranes, hearing normal Cardiovascular: regular rate and rhythym, no murmur, rub, or gallop, systolic murmur Respiratory: no respiratory distress, no rales or rhonchi, clear to auscultation Gastrointestinal: normoactive bowel sounds, soft, non-tender abdomen, no palpable masses Genitourinary: no bladder fullness, other (Scrotal swelling and some penile swelling. There is erythema the right lateral thigh and the inner thigh. No fluctuance noted) Skin: warm, other (See above into urinary.) Musculoskeletal: generalized weakness Neurologic: AAOx3, CN II-XII Intact Psychiatric: flat affect (Probably depressed.) ICD10 Worksheet Patient Problems: Problems Problem Status Onset Acquired immune deficiency syndrome (AIDS) Acute Cellulitis and abscess of face Acute Infection in abdomen Acute Methicillin resistant Staphylococcus aureus infection Acute ~12/31/16 Noncompliance with medications Acute Candidiasis of the esophagus Active Pneumocystosis jiroveci pneumonia Active Substance abuse Active Cellulitis Acute Left leg cellulitis Acute Sciatica Acute
[2017-06-08 18:28] LABS: LYMPHOCYTES, ABSOLUTE 734 /uL (850-3900)
[2017-06-08 18:29] LABS: ABSOLUTE CD4 < 20 /uL (490-1740); CD4% HELPER INDUCER 2 % (30-61); CD4/CD8 RATIO 0.1 RATIO (0.86-5.00); CD8% CYTOTOXIC/SUPPRESSOR 66 % (12-42)
[2017-06-08] MEDS: PATCH REMOVAL 1 EA PATCH TD SCH (22:22)
[2017-06-09] MEDS: VANCOMYCIN HCL/NORMAL SALINE 250 ML IV SCH ×2 (01:28→11:22)
[2017-06-09] MEDS: oxyCODONE IR 5 MG TAB PO PRN ×4 (03:19→21:16)
[2017-06-09] MEDS: LORazepam 1 MG TAB PO PRN (03:20)
[2017-06-09 05:13] LABS: PLATELET COUNT 158 10^3/uL (150-400)
--- NOTE | 2017-06-09 09:10 | PCMIDPN ---
Assessment/Plan: 1. MRSA bacteremia with necrotizing scrotal cellulitis/abscess status post incision and drainage, labial abscess also status post incision and drainage, as well as history of right thigh cellulitis/lymphangitis: Repeat blood cultures are pending, as is another vancomycin trough after increasing the dose to q.8 hours. The patient continues to have partial occlusion of the right thigh deep veins, as well as significant superficial venous thrombosis as well. The right thigh, however, looks much better today with decreased swelling and the erythema has practically resolved. Can hold off on imaging of the thigh for now. His scrotal and labial wounds also look clean. No new recommendations at this point in time. Agree that SULEIMAN unlikely to be helpful at this point in time. 2. End-stage AIDS: The patient is willing to start Bactrim DS daily for Pneumocystis prophylaxis. Will obtain blood culture for AFB, serum cryptococcal antigen, and CMV PCR while in-house. He is also willing to restart anti-retroviral therapy and he understands that active drug use and adherence to his antiretrovirals are not mutually exclusive entities. Talked to him at length about this today. 3. Oral candidiasis with probable esophageal component: The patient has extensive oral thrush with dysphagia and odynophagia consistent with an esophageal component. Will start fluconazole intravenously, given difficulty swallowing pills at 400 mg IV daily on day 1, then 200 mg IV daily thereafter for 14 days. Will likely transition to p.o. in short order. 06/09/17 09:12 Subjective: Tired. Has extensive oral candidiasis and says it is difficult for him to swallow. No headaches or visual change. Objective: Vital Signs Temp Pulse Resp BP Pulse Ox 36.9 C 84 18 106/65 92 06/09/17 08:00 06/09/17 08:00 06/09/17 08:00 06/09/17 08:00 06/09/17 08:00 Microbiology 06/05/17 16:20 Gram Stain - Final Groin - Tissue 06/05/17 16:20 Gram Stain - Final Mouth - Swab 06/05/17 16:20 Gram Stain - Final Mouth - Swab Laboratory Results 06/09/17 04:41 06/09/17 04:41 06/08/17 06/09/17 06/10/17 05:59 05:59 05:59 Intake Total 1000 Output Total 8159 2621 Balance -9561 -0649 - Physical Exam General Appearance: no apparent distress, cachetic EENT: thrush, other (Patient's lip abscess on the left side looks much better, with diminished swelling.) Respiratory: lungs clear Cardiac/Chest: regular rate, rhythm Extremities: other (The patient's right thigh is without evidence of erythema. There is palpable superficial clot along the inner thigh. Right thigh is essentially the same size as the left today.) Abdomen: non-tender, soft Male Genitalia: scrotal edema (Patient scrotum is swollen. He does have open wounds on the underside of his scrotal sac that appear clean. There quite tender. No evidence of ongoing cellulitis. No evidence of necrosis.), other Skin: other (Seborrheic dermatitis on his cheeks bilaterally.) ICD10 Worksheet Patient Problems: Problems Problem Status Onset Acquired immune deficiency syndrome (AIDS) Acute Cellulitis and abscess of face Acute Infection in abdomen Acute Methicillin resistant Staphylococcus aureus infection Acute ~12/31/16 Noncompliance with medications Acute Candidiasis of the esophagus Active Pneumocystosis jiroveci pneumonia Active Substance abuse Active Cellulitis Acute Left leg cellulitis Acute Sciatica Acute
[2017-06-09] MEDS ORDERED: FLUCONAZOLE/NaCl 200 ML IV ONE (09:15)
[2017-06-09] MEDS: LIDOCAINE 5% 1 EA PATCH TD SCH (09:38)
[2017-06-09] MEDS: ENOXAPARIN 40 MG/0.4 ML SYR SC SCH (10:59)
[2017-06-09] MEDS: VANCOMYCIN 1.25 GM in D5W 250 ML IV SCH ×2 (11:00→18:09)
--- NOTE | 2017-06-09 12:09 | ASMTCMCOM ---
CM Note CM Note Notes: Today SWer met w/ Pt. in room. Provided Pt. information about how to get utility and rental assistance through [facility] AIDS project if he wanted those services. Pt. states he is not interested in "filling out a bunch of paperwork" and having meetings to get help. Let Pt. know that SW available if he wants to talk or needs resources. After SWer's questioning, Pt. commented that his fiance' is supposed to visit today, but he seemed unsure if she would come. Pt. stated none of Juan A's business. Pt. seemed disengaged, tired, and weary physically and emotionally. Pt. likely to remain at [facility] for the duration of his IV treatment due to his hx. of IVDU. OT recommending HC, PT has not been able to evaluate due to Pt's refusals. CM to follow for d/c POC. Date Signed: 06/09/2017 12:08 PM Electronically Signed By:Idalmis Little LCSW
[2017-06-09] MEDS: SULFAMETHOX/TMP 800/160 MG 1 TAB PO SCH ×2 (12:32→21:16)
[2017-06-09] MEDS: PATCH REMOVAL 1 EA PATCH TD SCH (21:18)
--- NOTE | 2017-06-09 22:58 | HOSPPROG ---
Hospitalist Progress Note Assessment/Plan: 46-year-old male admitted with MR BOSS bacteremia and placed on antibiotics. Known HIV with CD4 count of 16 but currently off antivirals. Today he is quiet and without complaints. Says he has poor appetite and doesn't like hospital food -MR BOSS bacteremia with disseminated disease including scrotal abscess, cellulitis that is status post I&D and lymphangitis of the right thigh; left nasal labial abscess post I and D. -currently on vancomycin for MR BOSS and will recheck blood cultures per ID recommendations. -echo does not definitively rule out mitral valve disease although a SULEIMAN may not change the course of his needed antibiotic. -ultrasound of the right lower extremity shows persistence of clot though clinically the right lateral thigh is improving, less erythema, less swelling, and perhaps less pain -aids: CD4 is 16 off antiretrovirals. ID will restart antiviral -oral thrush: fluconizole -history of noncompliance -history of polysubstance abuse but he denies recent alcohol use. -watch for withdrawal symptoms though none are noted at this time. -anemia and thrombocytopenia which appear to be stable Plan: continue vancomycin, start fluconizole, start antivirals, continue nutrition Dispo: unclear. He has an apartment though will need high level of support. His intentions regarding drug use are unclear Subjective: no complaints Objective: Vital Signs Temp Pulse Resp BP Pulse Ox 37.4 C 90 18 97/65 L 91 L 06/09/17 19:39 06/09/17 19:39 06/09/17 19:39 06/09/17 19:39 06/09/17 19:39 Microbiology 06/09/17 15:40 Mycobacterial Smear (PARUL) - Final Blood 06/05/17 16:20 Gram Stain - Final Groin - Tissue 06/05/17 16:20 Gram Stain - Final Mouth - Swab 06/05/17 16:20 Gram Stain - Final Mouth - Swab Laboratory Results 06/09/17 04:41 06/09/17 04:41 06/08/17 06/09/17 06/10/17 05:59 05:59 05:59 Intake Total 1000 Output Total 3559 9413 2400 Balance -3550 -2475 -2400 PT 14.3 SEC (12.0-15.0) 06/05/17 12:30 INR 1.09 (0.83-1.16) 06/05/17 12:30 - Time Spent With Patient Time Spent with Patient: greater than 35 minutes Time Spent with Patient: Greater than 35 minutes spent on this patients care, greater than 50% of time spent counseling, educating, and coordinating care regarding the above mentioned plan. - Pending Discharge Pending Discharge Within 24 Hours: No Pending Discharge Within 48 Hours: No - Physical Exam Constitutional: no apparent distress, chronically ill appearing Eyes: PERRL, anicteric sclera Ears, Nose, Mouth, Throat: moist mucous membranes, hearing normal, oral thrush, oral ulcer Cardiovascular: regular rate and rhythym, no murmur, rub, or gallop, systolic murmur Respiratory: no respiratory distress, no rales or rhonchi Gastrointestinal: normoactive bowel sounds, soft, non-tender abdomen Genitourinary: no bladder fullness Skin: warm Musculoskeletal: generalized weakness Neurologic: AAOx3, CN II-XII Intact Psychiatric: interacting appropriately ICD10 Worksheet Patient Problems: Problems Problem Status Onset Cellulitis Acute Left leg cellulitis Acute Noncompliance with medications Acute Infection in abdomen Acute Cellulitis and abscess of face Acute Methicillin resistant Staphylococcus aureus infection Acute ~12/31/16 Acquired immune deficiency syndrome (AIDS) Acute Pneumocystosis jiroveci pneumonia Active Candidiasis of the esophagus Active Substance abuse Active Sciatica Acute
[2017-06-10] MEDS: VANCOMYCIN 1.25 GM in D5W 250 ML IV SCH ×3 (01:19→18:34)
[2017-06-10] MEDS: oxyCODONE IR 5 MG TAB PO PRN ×4 (01:19→22:10)
[2017-06-10 05:35] LABS: PLATELET COUNT 187 10^3/uL (150-400)
[2017-06-10] MEDS: LIDOCAINE 5% 1 EA PATCH TD SCH (08:16)
[2017-06-10] MEDS: SULFAMETHOX/TMP 800/160 MG 1 TAB PO SCH ×2 (08:18→09:15)
[2017-06-10] MEDS: FLUCONAZOLE/NaCl 100 ML IV SCH (08:19)
[2017-06-10] MEDS: ENOXAPARIN 40 MG/0.4 ML SYR SC SCH (08:23)
--- NOTE | 2017-06-10 08:34 | PCMIDPN ---
Assessment/Plan: 1. MRSA bacteremia with necrotizing scrotal cellulitis/abscess status post incision and drainage, labial abscess also status post incision and drainage, as well as history of right thigh cellulitis/lymphangitis: It appears his blood cultures have sterilized. Continue vancomycin at present dose. Trough is okay. No new recommendations at this point in time. Do not feel that his leg needs imaging. 2. End-stage AIDS: Continue Bactrim Double Strength daily for Pneumocystis prophylaxis. Talked to the patient antiretrovirals; healing start Descovy and Dolutegravir, 2 small pills that I think he will tolerate well. Will try and obtain these for him on Monday. 3. Oral candidiasis with probable esophageal component: Continue fluconazole 200 mg daily. Will likely switch to p.o. tomorrow. Subjective: In better spirits today. No significant complaint. Listening to classical music in bed. Objective: Vancomycin 1.25 g IV q.8 hours day 5 line Bactrim DS daily Fluconazole 200 mg IV daily day 2 of T-max 37.5 Vital Signs Temp Pulse Resp BP Pulse Ox 37.1 C 82 16 104/64 93 06/10/17 07:58 06/10/17 07:58 06/10/17 07:58 06/10/17 07:58 06/10/17 07:58 Microbiology 06/09/17 15:40 Mycobacterial Smear (PARUL) - Final Blood 06/05/17 16:20 Gram Stain - Final Groin - Tissue 06/05/17 16:20 Gram Stain - Final Mouth - Swab 06/05/17 16:20 Gram Stain - Final Mouth - Swab Laboratory Results 06/10/17 04:30 06/10/17 04:30 06/09/17 06/10/17 06/11/17 05:59 05:59 05:59 Intake Total 1000 Output Total 5119 8970 Balance -7858 -7116 Repeat blood cultures June 09 no growth - Physical Exam General Appearance: no apparent distress, cachetic EENT: thrush Respiratory: lungs clear Cardiac/Chest: regular rate, rhythm Extremities: other (Right leg without edema. No erythema. Palpable cord unchanged inner thigh ) Skin: other (Seborrheic dermatitis on his face), No rash ICD10 Worksheet Patient Problems: Problems Problem Status Onset Acquired immune deficiency syndrome (AIDS) Acute Cellulitis and abscess of face Acute Infection in abdomen Acute Methicillin resistant Staphylococcus aureus infection Acute ~12/31/16 Noncompliance with medications Acute Candidiasis of the esophagus Active Pneumocystosis jiroveci pneumonia Active Substance abuse Active Cellulitis Acute Left leg cellulitis Acute Sciatica Acute
[2017-06-10] MEDS ORDERED: ALTEPLASE 2 MG VIAL IVP PRN (12:45)
--- NOTE | 2017-06-10 15:24 | HOSPPROG ---
Hospitalist Progress Note Assessment/Plan: 46-year-old male admitted with MR BOSS bacteremia and placed on antibiotics. Known HIV with CD4 count of 16 but currently off antivirals. Today is a bit more interactive and reports that his mouth pain is less although he continues to complain of pain. 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 -currently on vancomycin for MR BOSS and will recheck blood cultures per ID recommendations. The wound is showing improvement with a decrease in the size of the scrotum unless tenderness and pain on the right lateral thigh -echo does not definitively rule out mitral valve disease although a SULEIMAN may not change the course of his needed antibiotic. -ultrasound of the right lower extremity shows persistence of clot though clinically the right lateral thigh is improving, less erythema, less swelling, and perhaps less pain -aids: CD4 is 16 off antiretrovirals. ID will restart antiviral -oral thrush: fluconizole in today this is improving. -history of noncompliance -history of polysubstance abuse but he denies recent alcohol use. -watch for withdrawal symptoms though none are noted at this time. -anemia and thrombocytopenia which appear to be stable Plan: continue vancomycin, continue fluconazole, start antivirals on or , continue nutrition Dispo: unclear. He has an apartment though will need high level of support. His intentions regarding drug use are unclear Case discussed with ID and with nursing and with case management. Time: 40 min Subjective: Reports he has less pain in his mouth and is eating better. He is a bit more interactive. Objective: Vital Signs Temp Pulse Resp BP Pulse Ox 37.1 C 78 16 88/52 L 95 06/10/17 11:46 06/10/17 11:46 06/10/17 11:46 06/10/17 11:46 06/10/17 11:46 Microbiology 06/09/17 15:40 Mycobacterial Smear (PARUL) - Final Blood 06/05/17 16:20 Gram Stain - Final Groin - Tissue 06/05/17 16:20 Gram Stain - Final Mouth - Swab 06/05/17 16:20 Gram Stain - Final Mouth - Swab Laboratory Results 06/10/17 04:30 06/10/17 04:30 06/09/17 06/10/1718 05:59 05:59 05:59 Intake Total 1000 Output Total 3815 4159 750 Balance -2475 -4150 -750 PT 14.3 SEC (12.0-15.0) 06/05/17 12:30 INR 1.09 (0.83-1.16) 06/05/17 12:30 - Time Spent With Patient Time Spent with Patient: greater than 35 minutes Time Spent with Patient: Greater than 35 minutes spent on this patients care, greater than 50% of time spent counseling, educating, and coordinating care regarding the above mentioned plan. - Pending Discharge Pending Discharge Within 24 Hours: No Pending Discharge Within 48 Hours: No - Physical Exam Constitutional: no apparent distress, chronically ill appearing, cachectic Eyes: PERRL Ears, Nose, Mouth, Throat: moist mucous membranes, hearing normal Cardiovascular: regular rate and rhythym, no murmur, rub, or gallop Respiratory: no respiratory distress, no rales or rhonchi, clear to auscultation Gastrointestinal: normoactive bowel sounds, soft, non-tender abdomen, no palpable masses Genitourinary: no bladder fullness, other (Scrotum is swollen and tender with a drainage point at the bottom of the scrotum which is quite tender with resolving erythema. Penis is also tender and swollen.) Skin: warm Musculoskeletal: generalized weakness, other (Right lateral thigh is tender but shows no erythema and no palpable cord.) Neurologic: AAOx3, CN II-XII Intact Psychiatric: interacting appropriately ICD10 Worksheet Patient Problems: Problems Problem Status Onset Cellulitis Acute Left leg cellulitis Acute Noncompliance with medications Acute Infection in abdomen Acute Cellulitis and abscess of face Acute Methicillin resistant Staphylococcus aureus infection Acute ~12/31/16 Acquired immune deficiency syndrome (AIDS) Acute Pneumocystosis jiroveci pneumonia Active Candidiasis of the esophagus Active Substance abuse Active Sciatica Acute
[2017-06-10] MEDS: PATCH REMOVAL 1 EA PATCH TD SCH (20:35)
[2017-06-10] MEDS: LORazepam 1 MG TAB PO PRN (23:11)
[2017-06-11] MEDS: oxyCODONE IR 5 MG TAB PO PRN ×4 (02:43→22:05)
[2017-06-11] MEDS: VANCOMYCIN 1.25 GM in D5W 250 ML IV SCH ×3 (02:44→18:08)
[2017-06-11 04:47] LABS: PLATELET COUNT 204 10^3/uL (150-400)
[2017-06-11] MEDS: LIDOCAINE 5% 1 EA PATCH TD SCH (08:42)
[2017-06-11] MEDS: FLUCONAZOLE/NaCl 100 ML IV SCH (08:43)
[2017-06-11] MEDS: ENOXAPARIN 40 MG/0.4 ML SYR SC SCH (08:44)
[2017-06-11] MEDS: SULFAMETHOX/TMP 800/160 MG 1 TAB PO SCH (08:45)
[2017-06-11] MEDS: LORazepam 1 MG TAB PO PRN ×3 (12:08→22:23)
--- NOTE | 2017-06-11 12:14 | PCMIDPN ---
Assessment/Plan: 1. MRSA bacteremia with necrotizing scrotal cellulitis/abscess status post incision and drainage, labial abscess also status post incision and drainage, as well as history of right thigh cellulitis/lymphangitis: It appears his blood cultures have sterilized, and scrotal wounds look clean. Continue vancomycin at present dose, which will also cover the anaerobic Gram- positive cocci in scrotal wounds. Vancomycin trough is okay. No new recommendations at this point in time. Do not feel that his leg needs imaging. Briefly talked to him about plans moving forward. Suspect the patient will end up staying here for the duration of his antibiotics, unless he leaves against medical advice. Talked to him about the fact that risk of is exceedingly high, from complications related to MRSA bacteremia, and end-stage AIDS. As per below, he is willing to start antiretrovirals tomorrow. 2. End-stage AIDS: Continue Bactrim Double Strength daily for Pneumocystis prophylaxis. Talked to the patient antiretrovirals; healing start Descovy and Dolutegravir, 2 small pills that I think he will tolerate well. Will try and obtain these for him tomorrow. 3. Oral candidiasis with probable esophageal component: Continue fluconazole 200 mg daily, but switch to p.o.. 4. Seborrheic dermatitis: Will use ketoconazole shampoo. 5. Anemia: Obtain testosterone levels, folate, vitamin B12, and iron studies. 06/11/17 12:16 Subjective: Has many questions for me today. Feels about the same. Talked at length to the patient today about disposition, and antiretrovirals. Objective: Vancomycin 1.25 g IV q.8 hours day 6 Bactrim DS daily Fluconazole 200 mg daily day 08/09 T-max 37.8degrees Vital Signs Temp Pulse Resp BP Pulse Ox 37.0 C 80 14 89/54 L 93 06/11/17 11:56 06/11/17 11:56 06/11/17 11:56 06/11/17 11:56 06/11/17 11:56 Laboratory Results 06/11/17 04:40 06/11/17 04:40 06/10/17 06/11/17 06/12/17 05:59 05:59 05:59 Intake Total 400 Output Total 4150 2700 950 Balance -4150 -2300 -950 Scrotal culture also have grown an anaerobic gram-positive cocci. Repeat cultures are negative - Physical Exam General Appearance: no apparent distress, cachetic EENT: other (Thrush has resolved.) Respiratory: lungs clear Cardiac/Chest: regular rate, rhythm Extremities: other (Right thigh looks fine. No swelling.) Abdomen: non-tender, soft Male Genitalia: other (Scrotal wounds have clean bases. No surrounding cellulitis.) Skin: other (Scaly rash with erythema on his nasal bridge in malar area consistent with seborrheic dermatitis. Very dry hands and feet.), No embolic lesions ICD10 Worksheet Patient Problems: Problems Problem Status Onset Acquired immune deficiency syndrome (AIDS) Acute Cellulitis and abscess of face Acute Infection in abdomen Acute Methicillin resistant Staphylococcus aureus infection Acute ~12/31/16 Noncompliance with medications Acute Candidiasis of the esophagus Active Pneumocystosis jiroveci pneumonia Active Substance abuse Active Cellulitis Acute Left leg cellulitis Acute Sciatica Acute
[2017-06-11] MEDS ORDERED: TEARS/DEXTRAN 70/HYPROMELLOSE 15 ML OPHT.BTL EACHEYE PRN (12:18)
--- NOTE | 2017-06-11 12:19 | ASMTCMCOM ---
CM Note CM Note Notes: Spoke with MD regarding patient staus. 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 Referrals placed to [facility] and [facility]. Awaiting responses,CM to follow. Date Signed: 06/11/2017 12:19 PM Electronically Signed By:Shannan Root RN
[2017-06-11] MEDS: KETOCONAZOLE 2% 15 GM CREAM TP SCH ×2 (16:31→22:16)
--- NOTE | 2017-06-11 17:13 | HOSPPROG ---
Hospitalist Progress Note Assessment/Plan: 46-year-old male admitted with MR BOSS bacteremia and placed on antibiotics. Known HIV with CD4 count of 16 but currently off antivirals. He continues to be interactive and sometimes not cooperative with nursing staff. He does complain of right-sided leg pain. This is a new problem. 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 -currently on vancomycin for MR BOSS and will recheck blood cultures per ID recommendations. The wound is showing improvement with a decrease in the size of the scrotum unless tenderness and pain on the right lateral thigh. Per ID will continue the vancomycin. -echo does not definitively rule out mitral valve disease although a SULEIMAN may not change the course of his needed antibiotic. -ultrasound of the right lower extremity shows persistence of clot though clinically the right lateral thigh is improving, less erythema, less swelling, and perhaps less pain -aids: CD4 is 16 off antiretrovirals. ID will restart antiviral on June 12 -oral thrush: fluconizole in today this is improving. He is currently eating well -history of noncompliance -history of polysubstance abuse but he denies recent alcohol use. -watch for withdrawal symptoms though none are noted at this time. -anemia and thrombocytopenia which appear to be stable -right leg radicular pain. He is reporting pain in the right sacrum radiating down the leg. Prior MR I of the lumbar spine have shown mild to moderate foraminal encroachment at the L5-S1 region. This may be amenable to steroid injection. Suggest we consult IR for consideration although the area is close to an area of contamination in the may not want to risk bacterial contamination. Plan: continue vancomycin, continue fluconazole, start antivirals on or , continue nutrition. I suggest IR be consulted regarding the right radicular pain and consideration of a steroid injection in the neural foramina. Dispo: unclear. He has an apartment though will need high level of support. His intentions regarding drug use are unclear Case discussed with ID and with nursing and with case management. See ID note of June 11 for details about the nature of his future care Time: 40 min Subjective: Reports pain in his right sacral in and down his right leg. Denies chest pain or shortness of breath. Objective: Vital Signs Temp Pulse Resp BP Pulse Ox 36.4 C 80 16 96/66 L 93 06/11/17 16:00 06/11/17 16:00 06/11/17 16:00 06/11/17 16:00 06/11/17 16:00 Laboratory Results 06/11/17 04:40 06/11/17 04:40 06/10/17 06/11/17 06/12/17 05:59 05:59 05:59 Intake Total 400 Output Total 4150 2700 1700 Balance -4150 -2300 -1700 PT 14.3 SEC (12.0-15.0) 06/05/17 12:30 INR 1.09 (0.83-1.16) 06/05/17 12:30 - Time Spent With Patient Time Spent with Patient: greater than 35 minutes Time Spent with Patient: Greater than 35 minutes spent on this patients care, greater than 50% of time spent counseling, educating, and coordinating care regarding the above mentioned plan. - Pending Discharge Pending Discharge Within 24 Hours: No Pending Discharge Within 48 Hours: No - Physical Exam Constitutional: no apparent distress, chronically ill appearing Eyes: PERRL, anicteric sclera Ears, Nose, Mouth, Throat: moist mucous membranes, hearing normal Cardiovascular: regular rate and rhythym, no murmur, rub, or gallop Respiratory: no respiratory distress, no rales or rhonchi, clear to auscultation Gastrointestinal: normoactive bowel sounds, soft, non-tender abdomen, no palpable masses, other (Wound in the suprapubic region is clean without surrounding erythema.) Genitourinary: other (Scrotum is diminished with swelling in the wound which is approximately 5 x 7 in the posterior scrotum is healing well.) Skin: warm Musculoskeletal: generalized weakness, other (Rectum back and right lateral thrice show no decubitus ulceration. He has tenderness in the right sacral region any reports radicular pain down the right leg.) Neurologic: AAOx3, CN II-XII Intact ICD10 Worksheet Patient Problems: Problems Problem Status Onset Cellulitis Acute Left leg cellulitis Acute Noncompliance with medications Acute Infection in abdomen Acute Cellulitis and abscess of face Acute Methicillin resistant Staphylococcus aureus infection Acute ~12/31/16 Acquired immune deficiency syndrome (AIDS) Acute Pneumocystosis jiroveci pneumonia Active Candidiasis of the esophagus Active Substance abuse Active Sciatica Acute
[2017-06-11] MEDS: PATCH REMOVAL 1 EA PATCH TD SCH (22:09)
[2017-06-11] MEDS: SODIUM FERRIC GLUCONAT/SUCROSE 125 MG in NS 100 ML IV SCH (22:23)
[2017-06-12] MEDS: VANCOMYCIN 1.25 GM in D5W 250 ML IV SCH ×3 (01:53→17:59)
[2017-06-12 04:34] LABS: PLATELET COUNT 209 10^3/uL (150-400)
[2017-06-12] MEDS: KETOCONAZOLE 2% 15 GM CREAM TP SCH (06:25)
[2017-06-12] MEDS: LIDOCAINE 5% 1 EA PATCH TD SCH (09:26)
[2017-06-12] MEDS: ENOXAPARIN 40 MG/0.4 ML SYR SC SCH (09:28)
[2017-06-12] MEDS: SODIUM FERRIC GLUCONAT/SUCROSE 125 MG in NS 100 ML IV SCH (09:29)
[2017-06-12] MEDS: SULFAMETHOX/TMP 800/160 MG 1 TAB PO SCH (09:29)
[2017-06-12] MEDS: oxyCODONE IR 5 MG TAB PO PRN ×3 (09:29→20:22)
[2017-06-12] MEDS: FLUCONAZOLE 100 MG TAB PO SCH (09:30)
[2017-06-12] MEDS ORDERED: traMADol 50 MG TAB PO PRN (14:53)
[2017-06-12] MEDS ORDERED: IBUPROFEN 600 MG TAB PO PRN (14:53)
[2017-06-12] MEDS ORDERED: fentaNYL 12 MCG PATCH TD SCH (15:00)
[2017-06-12] MEDS: ACETAMINOPHEN 500 MG TAB PO SCH ×2 (15:16→22:04)
--- NOTE | 2017-06-12 15:41 | ASMTCMCOM ---
CM Note CM Note Notes: Spoke with Karley at [facility] who needed patient's medications to review. Faxed those to her via [employer]. She states they have to review the HIV medicines and then get back to us. CM will follow. Date Signed: 06/12/2017 03:40 PM Electronically Signed By:Celia Jones LCSW
--- NOTE | 2017-06-12 17:04 | HOSPPROG ---
Hospitalist Progress Note Assessment/Plan: * Necrotizing scrotal cellulitis/abscess - possible Dariusz's s/p debridement * Right thigh cellulitis with lymphangitis spread * MRSA bacteremia -IV Vanco * HIV/AIDS - CD4 14 -now agreeable to initiate anti-retroviral therapy -PO bactrim PJP prophylaxis * Oral thrush, probable esophageal candidiasis -fluconazole * DVT right leg -therapeutic dose lovenox * h/o stomach cancer * h/o PE * Tobacco dependence Subjective: c/o poor pain control, still using IV morpine for breakthrough Objective: Vital Signs Temp Pulse Resp BP Pulse Ox 37.4 C 90 16 100/57 L 95 06/12/17 14:03 06/12/17 14:03 06/12/17 14:03 06/12/17 14:03 06/12/17 14:03 Microbiology 06/05/17 16:20 Gram Stain - Final Groin - Tissue Anaerobic Culture - Final MRSA Anaerococcus Species 06/05/17 16:20 Gram Stain - Final Mouth - Swab Anaerobic Culture - Final MRSA 06/05/17 16:20 Gram Stain - Final Mouth - Swab Anaerobic Culture - Final MRSA 06/07/17 05:40 Blood Culture - Final Blood MRSA 06/07/17 05:30 Blood Culture - Final Blood MRSA Laboratory Results 06/12/17 04:15 06/12/17 04:15 06/11/17 06/12/17 06/13/17 05:59 05:59 05:59 Intake Total 400 1016 Output Total 2700 2700 Balance -2300 -1684 PT 14.3 SEC (12.0-15.0) 06/05/17 12:30 INR 1.09 (0.83-1.16) 06/05/17 12:30 US leg right - positive for DVT CXR viewed, my personal interpretation is - negative - Physical Exam Constitutional: no apparent distress, appears nourished, not in pain Cardiovascular: regular rate and rhythym, no murmur, rub, or gallop Respiratory: no respiratory distress, no rales or rhonchi, clear to auscultation Gastrointestinal: normoactive bowel sounds, soft, non-tender abdomen, no palpable masses Skin: no rashes or abrasions, no fluctuance, no induration Neurologic: AAOx3, sensation intact bilaterally Psychiatric: interacting appropriately, not anxious, not encephalopathic, thought process linear ICD10 Worksheet Patient Problems: Problems Problem Status Onset Acquired immune deficiency syndrome (AIDS) Acute Cellulitis and abscess of face Acute Infection in abdomen Acute Methicillin resistant Staphylococcus aureus infection Acute ~12/31/16 Noncompliance with medications Acute Candidiasis of the esophagus Active Pneumocystosis jiroveci pneumonia Active Substance abuse Active Cellulitis Acute Left leg cellulitis Acute Sciatica Acute
--- NOTE | 2017-06-12 18:32 | PCMIDPN ---
Assessment/Plan: Assessment: Multifocal MRSA disease. 1. Bacteremia. 2. Right thigh abscess. 3. Scrotal abscess. 4. Left upper lip abscess. Covered currently on vancomycin monotherapy. Clinically he feels better. Improvement on all fronts. He is to start on new anti-retroviral medication today. Plan: 1. Continue IV vancomycin. 2. Follow up on trough level this afternoon. Subjective: Patient grumpy about timing of food delivery. No other issues or concerns. No fevers or chills. Objective: Vancomycin # 7 Vital Signs Temp Pulse Resp BP Pulse Ox 37.4 C 90 16 100/57 L 95 06/12/17 14:03 06/12/17 14:03 06/12/17 14:03 06/12/17 14:03 06/12/17 14:03 Microbiology 06/05/17 16:20 Gram Stain - Final Groin - Tissue Anaerobic Culture - Final MRSA Anaerococcus Species 06/05/17 16:20 Gram Stain - Final Mouth - Swab Anaerobic Culture - Final MRSA 06/05/17 16:20 Gram Stain - Final Mouth - Swab Anaerobic Culture - Final MRSA 06/07/17 05:40 Blood Culture - Final Blood MRSA 06/07/17 05:30 Blood Culture - Final Blood MRSA Laboratory Results 06/12/17 04:15 06/12/17 04:15 06/11/17 06/12/17 06/13/17 05:59 05:59 05:59 Intake Total 400 1016 400 Output Total 2700 2700 Balance -2300 -1684 400 - Physical Exam General Appearance: WD/WN, alert, cachetic, non-toxic Respiratory: lungs clear, normal breath sounds, No respiratory distress Cardiac/Chest: regular rate, rhythm, No tachycardia Skin: normal color, warm/dry, No rash Neuro/Psych: alert, normal mood/affect, oriented x 3 ICD10 Worksheet Patient Problems: Problems Problem Status Onset Acquired immune deficiency syndrome (AIDS) Acute Cellulitis and abscess of face Acute Infection in abdomen Acute Methicillin resistant Staphylococcus aureus infection Acute ~12/31/16 Noncompliance with medications Acute Candidiasis of the esophagus Active Pneumocystosis jiroveci pneumonia Active Substance abuse Active Cellulitis Acute Left leg cellulitis Acute Sciatica Acute
[2017-06-12] MEDS: ENOXAPARIN 60 MG/0.6 ML SYR SC SCH (22:04)
[2017-06-13] MEDS: LORazepam 1 MG TAB PO PRN (00:09)
[2017-06-13] MEDS: VANCOMYCIN 1.25 GM in D5W 250 ML IV SCH ×2 (02:29→10:47)
[2017-06-13] MEDS: oxyCODONE IR 5 MG TAB PO PRN ×2 (02:29→11:14)
[2017-06-13] MEDS: PATCH REMOVAL 1 EA PATCH TD SCH (02:38)
[2017-06-13 04:34] VITALS: RESP 16
[2017-06-13] MEDS: SODIUM FERRIC GLUCONAT/SUCROSE 125 MG in NS 100 ML IV SCH (08:13)
[2017-06-13 09:07] VITALS: BP 85/49; PULSE 80; TEMP 97.4; O2SAT 94
[2017-06-13] MEDS: KETOCONAZOLE 2% 15 GM CREAM TP SCH (09:42)
[2017-06-13] MEDS: LIDOCAINE 5% 1 EA PATCH TD SCH (09:47)
[2017-06-13] MEDS: FLUCONAZOLE 100 MG TAB PO SCH (09:49)
[2017-06-13] MEDS: SULFAMETHOX/TMP 800/160 MG 1 TAB PO SCH (09:49)
[2017-06-13] MEDS: ACETAMINOPHEN 500 MG TAB PO SCH ×3 (09:49→15:36)
[2017-06-13] MEDS: ENOXAPARIN 60 MG/0.6 ML SYR SC SCH (09:50)
[2017-06-13] MEDS ORDERED: DESCOVY 200MG/25MG PO SCH (13:00)
[2017-06-13] MEDS ORDERED: DOLUTEGRAVIR 50 MG PO SCH (13:00)
[2017-06-13] MEDS ORDERED: VANCOMYCIN 1.25 GM in D5W 250 ML IV SCH (14:00)
--- NOTE | 2017-06-13 15:37 | PCMIDPN ---
Assessment/Plan: Assessment/Plan: * Scrotal abscess with necrotizing perineal cellulitis and left lip abscess status post incision and drainage with concomitant MRSA bacteremia: Marked clinical improvement post drainage and with IV vancomycin. Will need 4 weeks of vancomycin for MRSA bacteremia. Vancomycin held earlier today due to elevated trough. Patient is adamant about leaving hospital and returning home. 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 Will arrange daptomycin 6 milligrams/kilogram IV Q 24 hr through outpatient infusion center with plans for IV placement and removal daily if has venous access. Discharge with PICC line not safe in the setting of substance abuse. Discussed with patient that he will need to comply with appointments at infusion center. Discussed that MRSA bacteremia with high likelihood of recurrence and risk of if he is noncompliant. * Nasolabial abscess: See above discussion. * AIDS: Started on Descovey and Dolutegravir. Medications have been provided to him. Bactrim DS daily for PCP prophylaxis. * Esophageal candidiasis: Will need 2 weeks of fluconazole. Time spent, greater than 35 min, of which greater than half was spent in education/counseling/coordination of care with patient, Dr. Razo, nursing staff and discharge planning related to MRSA bacteremia, scrotal abscess, AIDS, and treatment plan including daily infusion on [facility] via peripheral IV each day. 06/13/17 15:31 06/13/17 15:38 Subjective: Feels much better. Unwilling to be discharged to nursing home facility. Adamant that he will be discharged to home today. States he will not be using drugs after discharge. 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 Objective: Vital Signs Temp Pulse Resp BP Pulse Ox 36.3 C 80 16 85/49 L 94 06/13/17 08:00 06/13/17 08:00 06/13/17 08:00 06/13/17 08:00 06/13/17 08:00 Microbiology 06/09/17 15:40 Mycobacterial Smear (PARUL) - Final Blood 06/05/17 16:20 Gram Stain - Final Groin - Tissue Anaerobic Culture - Final MRSA Anaerococcus Species 06/05/17 16:20 Gram Stain - Final Mouth - Swab Anaerobic Culture - Final MRSA 06/05/17 16:20 Gram Stain - Final Mouth - Swab Anaerobic Culture - Final MRSA Laboratory Results 06/12/17 04:15 06/12/17 04:15 06/12/17 06/13/17 06/14/17 05:59 05:59 05:59 Intake Total 1016 400 Output Total 2700 1600 Balance -5114 -1200 Vancomycin # 8 Laboratory Tests 06/13/17 13:00 Vancomycin Trough 20.3 H* - Physical Exam General Appearance: alert, no apparent distress, non-toxic EENT: No thrush, No conjunctival petechiae Male Genitalia: other (Scrotal abscess clean with granulation tissue; suprapubic region with minimal residual erythema and some residual induration without fluctuance or drainage), No scrotal edema ICD10 Worksheet Patient Problems: Problems Problem Status Onset Acquired immune deficiency syndrome (AIDS) Acute Cellulitis and abscess of face Acute Infection in abdomen Acute Methicillin resistant Staphylococcus aureus infection Acute ~12/31/16 Noncompliance with medications Acute Candidiasis of the esophagus Active Pneumocystosis jiroveci pneumonia Active Substance abuse Active Cellulitis Acute Left leg cellulitis Acute Sciatica Acute
--- NOTE | 2017-06-13 17:22 | ASMTCMCOM ---
CM Note CM Note Notes: Spoke with patient who states he does not want to go to [facility] because he has too many things he has to take care of at home. He adamently expressed himself despite the medical concerns on getting the IV ABX treatment he needs to completely recover. Dr. Razo and Dr. Carey both talked to the patient re:risks and what the consequences of not taking his ABX treatments will be. Patient is well aware of what he needs to do to take care of himself at this juncture. Patient's PICC line will be removed because of his IV drug hx. Patient will come to the infusion center once per day and will have a temporary line placed to get his ABX. He will be provided a bus pass home (passes attached to the front of his infusion appointment chart). Patient was provided with his HIV medications, an eliquis coupon book, wound care supplies, anti fungal cream, eye drops. The remainder of his medications were called to [facility] on where patient wants to pick them up. Patient's dad (Pops) will pick him up today. Patient plans to ride his bike to his infusion appointments and then take the bus home after his infusion. Patient has his first infusion appointment tomorrow, June 14, 2017 at 4:30. He understands if he is late he has to reschedule because other patient's will need their appointments. Patient to d/c home today. Date Signed: 06/13/2017 05:21 PM Electronically Signed By:Celia Jones LCSW
[2017-06-13] MEDS ORDERED: APIXABAN 5 MG TAB PO SCH (21:00)
--- NOTE | 2017-06-14 06:10 | GDS ---
[f rep st] DISCHARGE SUMMARY DISCHARGE DIAGNOSES: 1. Necrotizing scrotal cellulitis and abscess, status post debridement. 2. Right thigh cellulitis with lymphangitic spread. 3. Methicillin-resistant Staphylococcus aureus bacteremia. 4. 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 5. Oral thrush and probable esophageal candidiasis. 6. Superficial and deep vein thromboses of the right leg. 7. History of stomach cancer. 8. History of pulmonary embolus. 9. Tobacco dependence. HISTORY: The patient is a 46-year-old male with end-stage HIV/AIDS as he has been not agreeable to a ntiretroviral therapy in the past. He presented with a necrotizing scrotal infection, as well as a t high cellulitis and abscess, as well as an abscess on his lip. His blood cultures were positive for MRSA. All abscesses were drained surgically. His blood cultures cleared on IV vancomycin. He was n ot a candidate for discharge home with a PICC line due to his ongoing IV drug abuse. We attempted pl acement in a group home facility; however, he absolutely refused and was very insistent on disch arging home today. He and Dr. Carey arranged a plan where he will return daily to the [facility]fusion [facility] on to have a new IV placed every day, and he will be switched to daily daptomycin. PICC line was discontinued prior to discharge. He does plan to go back to active IV drug abuse post discharge and had no interest in cessation. He is now agreeable to initiating antiretroviral therapy and did start that in the hospital. He has those prescriptions upon hospital discharge. He was also started on oral Bactrim for PJP prophylaxis . He was discharged with a 14-day course of fluconazole for oral thrush and probable esophageal cand idiasis. His right leg ultrasound did show a DVT, although partial. It was quite extensive and contiguous wit h an extensive superficial clot. It is probably related to his IV drug abuse. Given the deep nature of this clot, I did anticoagulate him. I have concerns regarding his compliance with Coumadin, and he was given a prescription for Eliquis at discharge. He does also have a previous history of pulmon manjinder embolus. DISCHARGE MEDICATIONS: Please see computerized record for full detailed list. New medications: 1. Eliquis 10 mg p.o. b.i.d. for 1 week, then 5 mg p.o. b.i.d. 2. Daily IV daptomycin through the Infusion Center on . 3. Bactrim 1 tab p.o. daily. 4. Diflucan 200 mg p.o. daily for 10 more days. ADDITIONAL DISCHARGE INSTRUCTIONS: 1. Present to the Infusion Center at [facility] daily starting at 4:30 the da y after discharge. 2. Follow up with Dr. Skyla Meneses for HIV management. Greater than 30 minutes' time was spent arranging this discharge. Patient was seen and examined by darwin lopez on the day of discharge. /[id number]/MODL
--- NOTE | 2017-06-20 15:00 | PQFORM ---
PHYSICIAN QUERY FORM Needs Your Response This query form is being sent to you to assure this patient record is coded properly. Please respond to the question below: PROCESS WORKER QUESTION: Dr. Oliva, In your operative report you mention you opened and drained the suprapubic area/ region. Please define the depth of this abscess. skin ___X subcutaneous fascia pelvic cavity other Thank you, DIONTE Mckeon HIM Coding INSTRUCTIONS FOR RESPONSE: Answer question by clicking on the "Edit Document" button. Move cursor to area below the stars. When complete, hit "Save." Click on the "Sign" button, then click "Sign" again. Type in your PIN and hit "Enter." MTDD
== END 2017-06-13 17:02 | disposition home or self-care (01) | DRG 570 ==
LOC: F3E 20:00
PROVIDERS: ADMIT Internal Medicine; ATTEND Internal Medicine
PROC: 0J9C0ZZ Drainage of Pelvic Region Subcutaneous Tissue and Fascia, Open Approach (ICD-10-PCS; principal; 2017-06-05 17:00)
PROC: 0JBC0ZZ Excision of Pelvic Region Subcutaneous Tissue and Fascia, Open Approach (ICD-10-PCS; principal; 2017-06-05 17:00)
PROC: 0VB50ZZ Excision of Scrotum, Open Approach (ICD-10-PCS; principal; 2017-06-05 17:00)
PROC: 0H91XZZ Drainage of Face Skin, External Approach (ICD-10-PCS; principal; 2017-06-05 17:00)
DX: L02.211 Cutaneous abscess of abdominal wall (principal); I96 Gangrene, not elsewhere classified; N49.2 Inflammatory disorders of scrotum; N50.89 Other specified disorders of the male genital organs; L03.115 Cellulitis of right lower limb; B20 Human immunodeficiency virus [HIV] disease; B37.0 Candidal stomatitis; B37.81 Candidal esophagitis; R78.81 Bacteremia; B95.62 Methicillin resistant Staphylococcus aureus infection as the cause of diseases classified elsewhere; R64 Cachexia; I82.411 Acute embolism and thrombosis of right femoral vein; I82.491 Acute embolism and thrombosis of other specified deep vein of right lower extremity; K13.0 Diseases of lips; D64.9 Anemia, unspecified; D69.6 Thrombocytopenia, unspecified; L21.9 Seborrheic dermatitis, unspecified; M54.17 Radiculopathy, lumbosacral region; F19.10 Other psychoactive substance abuse, uncomplicated; F17.200 Nicotine dependence, unspecified, uncomplicated; Z91.128 Patient's intentional underdosing of medication regimen for other reason; Z86.711 Personal history of pulmonary embolism; Z85.028 Personal history of other malignant neoplasm of stomach
CPT/HCPCS: 82607-90; 84402-90; 86359-90; 86360-90; 87385-90; 87497-90; 87536-90; 96365; 97162-GP; 97166-GO; 97535-GO; C1751; J1170; J1450; J1650; J2250; J2405; J2543; J2704; J2916; J2997; J3010; J3370; Q9967

== ENCOUNTER 2017-09-18 21:15 | Inpatient (IN) | payer MEDICAID, OTHER ==
--- NOTE | 2017-09-18 21:54 | EDPHY ---
H & P Stated Complaint: thinks he has pna, coughing/nasal ramo - x 1.5 wks, recent admit for mrsa Time Seen by Provider: 09/18/17 21:54 HPI/ROS: HPI CHIEF COMPLAINT: Possible pneumonia HISTORY OF PRESENT ILLNESS: Patient is a 46-year-old male, he has end-stage AIDS, noncompliant with his medication, he presents emergency room with worsening cough shortness of breath fever chills and not feeling well. Reports he has been sick for the past week with worsening cough. He states he did take his HIV medication up until when he was discharged from the hospital in May. His main complaint is worsening cough with yellow productive sputum. Fatigue, generalized weakness and chills. Past Medical History: History of AIDS, HIV, noncompliant with medication, recent hospitalization in May for MRSA infection MRSA bacteremia, including necrotizing scrotal cellulitis, PE, stomach CA Past Surgical History: No recent surgery Social History: Lives locally, he denies drug use alcohol tobacco. Family History: Noncontributory ROS REVIEW OF SYSTEMS: A comprehensive 10 point review of systems is otherwise negative aside from elements mentioned in the history of present illness. Exam Constitutional cachectic, malnourished, thin appearing, ill-appearing, triage nursing summary reviewed, vital signs reviewed, awake/alert. Eyes normal conjunctivae and sclera, EOMI, PERRLA. HENT oropharynx shows thrush, moist mucus membranes, no epistaxis, neck supple / no meningismus, no raccoon eyes. Respiratory crackles at the base bilaterally. Cardiovascular rate normal, regular rhythm, no murmur, no edema, distal pulses normal. Gastrointestinal soft, non-tender, no rebound, no guarding, normal bowel sounds, no distension, no pulsatile mass. Genitourinary no CVA tenderness. Musculoskeletal no midline vertebral tenderness, full range of motion, no calf swelling, no tenderness of extremities, no meningismus, good pulses, neurovascularly intact. Skin pink, warm, & dry, no rash, skin atraumatic. Neurologic awake, alert and oriented x 3, AAOx3, moves all 4 extremities equally, motor intact, sensory intact, CN II-XII intact, normal cerebellar, normal vision, normal speech. Psychiatric normal mood/affect. Heme/Lymph/Immune no lymphadenopathy. Differential Diagnosis: Includes but is not limited to in a particular order pneumonia, end-stage AIDS, thrush, sepsis, bacteremia Medical Decision Making: Plan for this patient IV establishment blood draw, check basic blood work, chest x-ray, predictive maintenance specialist, blood cultures. Re-evaluation: 2340: Patient resting comfortably. Hemodynamically stable. He has a left lower lobe pneumonia seen on the x-ray. Patient will receive broad-spectrum antibiotics including IV vancomycin and IV Zosyn given his severe compromised state of health/AIDS and a left lower lobe pneumonia. Patient need to be admitted to the hospital for left lower lobe pneumonia. Spoke with Dr. Haskins Agrees to admit. Source: Patient - Medical/Surgical History Hx Asthma: No Hx Chronic Respiratory Disease: No Hx Diabetes: No Hx Cardiac Disease: No Hx Renal Disease: No Hx Cirrhosis: No Hx Alcoholism: Yes Hx HIV/AIDS: Yes Hx Splenectomy or Spleen Trauma: No Other PMH: PMHx: Stomach CANCER, ABD SURG, PE, HIV, AIDS, MRSA, sciatic nerve pain. - Social History Smoking Status: Current every day smoker Constitutional: Initial Vital Signs Temperature (C) 37.8 C 09/18/17 21:26 Heart Rate 94 09/18/17 21:26 Respiratory Rate 18 09/18/17 21:26 Blood Pressure 96/62 L 09/18/17 21:26 O2 Sat (%) 95 09/18/17 21:26 O2 Delivery Mode Nasal Cannula O2 (L/minute) 2 Allergies/Adverse Reactions: cefepime Allergy (Unknown, Verified 09/18/17 21:31) Unknown Cephalosporins Allergy (Unknown, Verified 09/18/17 21:31) Unknown tramadol Allergy (Unknown, Verified 09/18/17 21:31) cat dander Allergy (Verified 09/18/17 21:31) Home Medications: Medication Instructions Recorded NK [No Known Home Meds] 09/19/17 Medical Decision Making - Data Points Laboratory Results: Laboratory Results 09/18/17 22:33 09/18/17 22:33 Medications Given: Benzonatate (Tessalon Pearles) 100 mg PO TID PRN PRN Reason: Cough, Mild Stop: 03/18/18 05:37 Last Admin: 09/19/17 06:04 Dose: 100 mg Chlordiazepoxide HCl (Librium) 25 mg PO TID KYRIE Stop: 03/18/18 01:29 Last Admin: 09/19/17 23:00 Dose: 25 mg Folic Acid (Folic Acid) 1 mg PO DAILY KYRIE Stop: 03/18/18 08:59 Last Admin: 09/19/17 08:11 Dose: 1 mg Guaifenesin/Dextromethorphan (Robitussin Dm Oral Liquid) 10 ml PO Q4HRS PRN PRN Reason: Cough, Moderate Stop: 03/18/18 05:36 Last Admin: 09/19/17 06:04 Dose: 10 ml Piperacillin/Tazobactam/Dextrose (Zosyn 3.375 Gm (Premix)) 50 mls @ 100 mls/hr IV Q6HRS KYRIE PRN Reason: Protocol Stop: 10/19/17 05:59 Last Admin: 09/19/17 17:27 Dose: 50 mls Vancomycin HCl 1 gm/ Sodium (Chloride) 250 mls @ 250 mls/hr IV Q12H KYRIE Stop: 10/19/17 11:59 Last Admin: 09/19/17 12:39 Dose: 250 mls Potassium Chloride 40 meq/ (Sodium Chloride) 1,000 mls @ 100 mls/hr IV CONT KYRIE Stop: 03/18/18 05:59 Last Admin: 09/19/17 09:27 Dose: 1,000 mls Lorazepam (Ativan) 0.5 - 1 mg PO Q8HRS PRN PRN Reason: Anxiety, Able to Take PO Stop: 03/18/18 00:18 Last Admin: 09/19/17 14:10 Dose: 0.5 mg Multivitamins (Tab-A-Garcia) 1 each PO DAILY KYRIE Stop: 03/18/18 08:59 Last Admin: 09/19/17 08:11 Dose: 1 each Ondansetron HCl (Zofran) 4 mg IVP Q4HRS PRN PRN Reason: Nausea/Vomiting, Can't Take PO Stop: 03/18/18 00:18 Last Admin: 09/19/17 15:33 Dose: 4 mg Thiamine HCl (Vitamin B-1) 100 mg PO DAILY KYRIE Stop: 03/18/18 16:44 Last Admin: 09/19/17 17:27 Dose: 100 mg Discontinued Medications Sodium Chloride (Ns) 1,000 mls @ 0 mls/hr IV ONCE ONE; Wide Open PRN Reason: Protocol Stop: 09/18/17 21:57 Last Admin: 09/18/17 22:43 Dose: 1,000 mls Vancomycin/Sodium Chloride (Vancomycin 1 Gm (Premix)) 250 mls @ 250 mls/hr IV EDNOW ONE PRN Reason: Protocol Stop: 09/19/17 00:35 Last Admin: 09/19/17 02:53 Dose: Not Given Piperacillin/Tazobactam/Dextrose (Zosyn (Premix)) 100 mls @ 200 mls/hr IV EDNOW ONE PRN Reason: Protocol Stop: 09/19/17 00:05 Last Admin: 09/19/17 00:06 Dose: 100 mls Sodium Chloride (Ns) 1,000 mls @ 0 mls/hr IV ONCE ONE PRN Reason: Wide Open Stop: 09/18/17 23:40 Last Admin: 09/19/17 00:07 Dose: 1,000 mls Vancomycin HCl 1 gm/ Sodium (Chloride) 250 mls @ 250 mls/hr IV EDNOW ONE PRN Reason: Protocol Stop: 09/19/17 00:44 Last Admin: 09/19/17 00:07 Dose: 250 mls Sodium Chloride (Ns) 1,000 mls @ 100 mls/hr IV CONT KYRIE Stop: 03/18/18 00:29 Last Admin: 09/19/17 03:08 Dose: 1,000 mls Potassium Chloride 10 meq/ (Sodium Chloride) 100 mls @ 100 mls/hr IV Q1H KYRIE Stop: 09/19/17 10:59 Last Admin: 09/19/17 10:26 Dose: 100 mls Calcium Gluconate 1 gm/ (Dextrose) 60 mls @ 120 mls/hr IV ONCE ONE Stop: 09/19/17 07:29 Last Admin: 09/19/17 08:12 Dose: 60 mls Magnesium Sulfate/Dextrose (Magnesium Sulf 1 Gm (Premix)) 100 mls @ 100 mls/hr IV ONCE ONE Stop: 09/19/17 09:21 Last Admin: 09/19/17 09:35 Dose: 100 mls Fluconazole/Sodium Chloride (Diflucan 2mg/Ml (Premix)) 200 mls @ 100 mls/hr IV ONCE ONE Stop: 09/19/17 15:44 Last Admin: 09/19/17 14:11 Dose: 200 mls Potassium Chloride (Potassium Cl 20 Meq (Premix)) 50 mls @ 50 mls/hr IV ONCE ONE Stop: 09/19/17 14:59 Last Admin: 09/19/17 14:11 Dose: 50 mls Pneumococcal Polyvalent Vaccine (Pneumovax 23) 0.5 ml IM .ONCE ONE Stop: 09/19/17 08:15 Last Admin: 09/19/17 09:27 Dose: 0.5 ml Trimethoprim/Sulfamethoxazole (Bactrim Ds) 1 ea PO ONCE ONE Stop: 09/19/17 02:01 Last Admin: 09/19/17 02:53 Dose: 1 ea Departure - Departure Disposition: [facility] Inpatient Acute Clinical Impression: AIDS Left lower lobe pneumonia Qualifiers: Pneumonia type: due to unspecified organism Qualified Code(s): J18.1 - Lobar pneumonia, unspecified organism Condition: Fair
[2017-09-18] MEDS ORDERED: NS 1,000 ML IV ONE ×2 (21:56→23:39)
[2017-09-18 22:47] LABS: PLATELET COUNT 198 10^3/uL (150-400)
[2017-09-18] MEDS ORDERED: VANCOMYCIN HCL/NORMAL SALINE 250 ML IV ONE (23:36)
[2017-09-18] MEDS ORDERED: PIPERACILLIN/TAZO 4.5 GM/DEX 100 ML IV ONE (23:36)
[2017-09-18] MEDS ORDERED: VANCOMYCIN 1 GM in NS 250 ML IV ONE (23:45)
[2017-09-19] MEDS ORDERED: ACETAMINOPHEN 325 MG TAB PO PRN (00:19)
[2017-09-19] MEDS ORDERED: LORazepam 2 MG/ML INJ IVP PRN (01:27)
[2017-09-19] MEDS ORDERED: SULFAMETHOX/TMP 800/160 MG 1 TAB PO ONE (02:00)
[2017-09-19] MEDS: chlordiazePOXIDE 25 MG CAP PO SCH ×4 (02:14→23:00)
[2017-09-19] MEDS: NS 1,000 ML IV SCH ×2 (02:16→03:08)
--- NOTE | 2017-09-19 05:03 | GHP ---
[f rep st] HISTORY AND PHYSICAL DATE OF ADMISSION: 09/18/2017 Patient is without a listed PCP. He was previously followed by Skyla Meneses MD with Infectious Dis ease. HISTORY OF PRESENT ILLNESS: This is a 46-year-old gentleman with past medical history significant fo r HIV AIDS, last CD4 count was undetectable in May 2017, after which patient was admitted for MRS A bacteremia with a cellulitis in the scrotal, upper leg, and face. Patient with history of noncompl iance with anti-retroviral therapy. He does continue to utilize IV drug use including heroin and chr onic alcohol dependence. The patient presents to the emergency department today with complaints of c ough and shortness of breath. He denies any fevers or chills. At time of my interview, patient repo rts that he is sleeping, and he is not going to move. This is limited participation from patient for history. Majority of information obtained from discussion with ED provider and RN. The EMR was als o reviewed. The patient noted fevers and chills to the emergency department. At time of my intervie w, he denies. He reports persistent shortness of breath and a little bit of pleuritic bilateral lowe r chest pain. Patient reports some rhinorrhea, some sore throat, and respiratory symptoms. Denies a ny nausea, vomiting, abdominal pain. REVIEW OF SYSTEMS: PSYCHIATRIC: The patient initially reported some suicidal ideation and plans to harm himself by hanging in front of his parent's home. At time of my interview, patient is with limi paul cooperation during the interview, and reports he just wants to sleep, and he is not moving. The mental health staff evaluated the patient and recommended M1 hold, which has been activated. Remaind er of review of systems negative except as noted above. ALLERGIES: Cephalosporins, tramadol, cat dander. MEDICATIONS: At home, patient denies taking any. PAST MEDICAL HISTORY: Significant for HIV AIDS, last CD4 count was undetectable, not currently on an ti-retroviral therapy and noncompliant, history of recent hospitalization 2 months ago for MRSA bacte remia and cellulitis, listed is a history of stomach cancer, PE. PAST SURGICAL HISTORY: Patient with I and D. FAMILY HISTORY: Patient denies. SOCIAL HISTORY: Patient continues to smoke approximately 1 pack per day. Drinks about a pint of whi skey daily and continues to use IV drug use of heroin. Last intake of alcohol and IV drug use per cornell metcalf was approximately 2 days ago. Patient currently living in an apartment, but reports that he wi ll shortly be homeless in a week. CODE STATUS: Full. PHYSICAL EXAMINATION: VITAL SIGNS: Upon arrival to the emergency department, blood pressure is 96/6 2, heart rate 94, respiratory rate 18, O2 saturation 95% on room air, temperature 37.8. Current irwin l signs available, blood pressure 114/67, heart rate is 70, respiratory rate 28, O2 saturation 93% on 2 L by nasal cannula, temperature 37.1. GENERAL: No acute distress. Frail, cachectic, disheveled appearing gentleman, who is lying quietly in bed. He will answer a few yes no questions, but decline s to cooperate with any additional significance. HEAD: Normocephalic, atraumatic. EYES: Unable to assess, patient keeps his eyes closed. ENT: Mucous membranes appear slightly dry. No nasal discha rge. NECK: Supple. Trachea midline. CV: Regular rate and rhythm. No murmurs, rubs, or gallops a ppreciated. RESPIRATORY: Diminished at the bases bibasilarly. No wheezes or rhonchi appreciated. ABDOMEN: Positive bowel sounds. Soft, nontender to palpation. No rebound, guarding, or masses appr eciated. : No Aleman in place. No suprapubic tenderness to palpation. EXTREMITIES: No cyanosis, clubbing, or edema appreciated. SKIN: Limited to exposed extremities, patient declines to show any reported open sores that remain from infection in May. NEUROLOGIC: Nonfocal. Patient does mov e his extremities while lying in bed to move his blankets. No facial drooping, but limited exam seco ndary to patient cooperation. PSYCH: Affect is flat. Patient with limited interaction and tries to sleep. LABORATORY DATA: WBC 7.16, H and H 11.2 and 32.9, MCV of 86.1, platelet count is 198, no bands. Danelle trophil percent 80.6. VBG: Lactic acid 1.0. Sodium is 135, potassium is 3.0, chloride 100, CO2 is 23, anion gap 12, BUN is 10, creatinine 0.7, GFR greater than 60, glucose is 88, calcium is 8.1. Chest x-ray image report was reviewed myself showing left lower lobe pneumonia. ASSESSMENT AND PLAN: This is a 46-year-old gentleman with history of acquired immune deficiency synd jacey, continued intravenous drug use and alcohol dependence, who presents to emergency department wit h complaints of cough and shortness of breath. 1. Left lower lobe pneumonia in the setting of history of human immunodeficiency virus acquired immu ne deficiency syndrome and undetectable CD4 count. The patient has been started on Vancomycin, Zosyn , and Bactrim. Infectious Disease will be consulted to assist with recommendations. Blood cultures x2 have been ordered and pending. The patient with a recent hospitalization of Methicillin-resistant staphylococcus aureus bacteremia. The patient without any noted hypoxia. Will monitor and adjust O 2 supplementation to maintain saturations greater than 90. 2. Acquired immune deficiency syndrome. The patient is noncompliant with anti-retroviral therapy. Infectious Disease consultation as noted above. 3. Hypokalemia. Replacement protocol has been ordered. Check a magnesium. 4. History of Methicillin-resistant staphylococcus aureus bacteremia. Currently on vancomycin for a dditional coverage of his pneumonia. The patient reports that he continues to have a slight wound, b ut at this time he is not cooperative and refuses to have me assess his wound, which he reports. 5. Anemia, likely of chronic disease. Continue to monitor. 6. Severe protein calorie malnutrition. With patient being underweight, body mass index is 19. tary consultation in the morning. 7. Suicidal ideation. Mental health called and recommend M1 hold given patient has a pretty specifi c plan and decision to harm himself. At time of my interview, he is not willing to discuss any furth er details, and so will have case management and Psychiatry follow up later in the morning. 8. Fluids, electrolytes, and nutrition. Intravenous fluids overnight for supplemental hydration. E ncouraged oral intake, which patient has left his plate full at bedside. 9. Electrolyte monitoring. Replacement if needed. Diet as tolerated. 10. Prophylaxis. Sequential compression devices, adding Lovenox. Patient with history of pulmonary embolism. Will need to clarify with patient tomorrow if he has been taking Eliquis, which I suspect he has not given his history of noncompliance to medications, but at this time he is not very arcadio ative. 11. Cor status-full. 12. Disposition. Patient is admitted to observation status for now. Vital signs are stable, but derik lópez will require additional days of intravenous antibiotics. Will await reassessment and Infectious Disease recommendations. The patient has been [facility] due to his recent M1 hold for suicidal ideation and plan. /[id number]/MODL
[2017-09-19 05:05] LABS: PLATELET COUNT 182 10^3/uL (150-400)
[2017-09-19] MEDS ORDERED: PROTOCOL CALCIUM 1 DOSE IV PRN (05:35)
[2017-09-19] MEDS ORDERED: PROTOCOL MAGNESIUM 1 DOSE IV PRN (05:35)
[2017-09-19] MEDS ORDERED: PROTOCOL K PHOSPHATE 1 DOSE IV PRN (05:35)
[2017-09-19] MEDS ORDERED: PROTOCOL POTASSIUM 1 DOSE MISC PRN ×2 (05:35→19:53)
[2017-09-19] MEDS ORDERED: GUAIFENESIN/DM 10 ML UDCUP PO PRN (05:37)
[2017-09-19] MEDS ORDERED: BENZONATATE 100 MG CAP PO PRN (05:38)
[2017-09-19] MEDS: PIPERACILLIN/TAZO 3.375 GM/DEX 50 ML IV SCH ×4 (05:49→23:07)
[2017-09-19] MEDS ORDERED: POTASSIUM Cl (KCl) 100 ML IV SCH (06:45)
[2017-09-19] MEDS ORDERED: CALCIUM GLUCONATE 50 ML IV ONE (06:46)
[2017-09-19] MEDS ORDERED: CALCIUM GLUCONATE 1 GM in D5W 50 ML IV ONE (07:00)
[2017-09-19] MEDS: POTASSIUM Cl (KCl) 10 MEQ in NS 100 ML IV SCH ×4 (07:10→10:26)
[2017-09-19] MEDS: MULTIVITAMINS 1 EACH TAB PO SCH (08:11)
[2017-09-19] MEDS: FOLIC ACID 1 MG TAB PO SCH (08:11)
[2017-09-19] MEDS ORDERED: PNEUMOCOCCAL 0.5ML VACCINE VIAL IM ONE (08:14)
[2017-09-19] MEDS ORDERED: MAGNESIUM SULF 1 GM/DEXTROSE 100 ML IV ONE (08:22)
[2017-09-19] MEDS: ONDANSETRON 4 MG/2 ML VIAL IVP PRN ×2 (09:27→15:33)
[2017-09-19] MEDS: POTASSIUM Cl (KCl) 40 MEQ in NS 1,000 ML IV SCH (09:27)
--- NOTE | 2017-09-19 12:04 | WOCRNPDOC ---
[facility] Advanced Assessment Note - Skin Integrity Problem, Advanced Assess Left Forehead Scab Dressing Type: Open to Air Exudate Color: Brown Exudate Characteristic(s): Dried Tiki Wound Swelling: None Wound Bed Color: Brown Wound Bed Constitution: Scab Site Measurement - Head-to-Toe Length X Width X Depth (cm): [id number] scab Skin Integrity Problem Comment: Abrasion noted to patient's L forehead, no swelling or periwound erythema observed. Patient averse to a dressing, saying wound needs to "dry out." No need for wound care to follow this wound ongoing. Right Buttock Dressing Type: Open to Air Exudate Amount: None Tiki Wound Tissue: Intact Tiki Wound Swelling: None Wound Bed Color: Brown Wound Bed Constitution: Scab Site Measurement - Head-to-Toe Length X Width X Depth (cm): 0.5cmx0.5cmx scab Skin Integrity Problem Comment: Discrete, circular scab noted on patient's R buttock, not over a bony prominence. Uncertain of etiology, but does not appear to be pressure-related. Minimal erythema surrounding, confined to immediate periwound skin. No fluctuance. Recommend protective dressing and wound gel; patient says he is okay with a dressing being placed.
--- NOTE | 2017-09-19 12:04 | ASMTCMCOM ---
CM Note CM Note Notes: 46yr old male admitted for L LE cellulitis, L LL PNA, Suicidal ideation, AIDS. He has a Hx of Sciatica and substance abuse: ETOH, smoker. IV Heroin. Patient is presently on an M1 Hold. When he is medically cleared he will have a mental health eval. CM to follow for discharge needs. Date Signed: 09/19/2017 12:03 PM Electronically Signed By:Erin Smallwood LCSW
[2017-09-19] MEDS: VANCOMYCIN 1 GM in NS 250 ML IV SCH ×2 (12:39→23:58)
[2017-09-19] MEDS ORDERED: FLUCONAZOLE/NaCl 200 ML IV ONE (13:45)
[2017-09-19] MEDS ORDERED: POTASSIUM Cl (KCl) 50 ML IV ONE (14:00)
[2017-09-19] MEDS ORDERED: FLUCONAZOLE/NaCl 100 ML IV SCH (14:00)
[2017-09-19] MEDS: LORazepam 0.5 MG TAB PO PRN (14:10)
--- NOTE | 2017-09-19 14:28 | PCMIDPN ---
Assessment/Plan: 1. Left lower lobe pneumonia: Will attempt to get sputum, and induced sputum for Pneumocystis, although doubt this is contributing. Suspect routine bacterial process at this point in time. Given history of MRSA, agree with present antibiotics in the form of vancomycin and Zosyn as is pending further data/blood cultures. Check vancomycin trough before 4th dose. Present dose of Zosyn is fine. 2. 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 Reiterated that he will if he does not comply with therapy moving forward. For now, given concern for possible opportunistic infection (disseminated MAC), will hold off on initiation of ART pending further evaluation. As alluded to, the patient has an extremely elevated alkaline phosphatase, concerning for DMAC; will need CT scans of the chest abdomen and pelvis, but the patient would like to do this tomorrow.(infectious Disease will need to order this tomorrow) Blood culture for AFB sent, as well as serum cryptococcal antigen, CMV PCR of the serum, urine Histoplasma antigen. Clinical suspicion for Pneumocystis low, will therefore restart Bactrim DS 1 tab p.o. Daily. 3. Esophageal candidiasis: Start fluconazole 400 mg IV loading dose now, then 200 mg IV moving forward times 14 days; change to p.o. When he is less nauseated unable to tolerate p.o. Therapy. 4.? Diarrhea: Nurse reports patient has not had loose stool today. If he starts having diarrhea, certainly this could be related to heroin withdrawal, but also could be an infectious etiology in the setting of end-stage AIDS. If diarrhea recurs , would obtain GI pathogen PCR panel, with extra testing for microsporidia and Isospora is this is not contained within this panel. 5. Miscellaneous: I have asked our social service technician, Rosy Almaguer to visit with the patient tomorrow so that we can sort out his social issues. Homelessness would be suboptimal for this patient at this point in time. Over 45 min was spent with this patient. Subjective: This patient is well known to our clinic. He is a 46-year-old male with longstanding HIV disease, noncompliant, and longstanding history of intravenous drug use with related complications. Specifically, his previous medical history is notable for the followin. Aids: Patient is notoriously noncompliant with therapy. T-cell count less than 20, May 2017. He has a history of Pneumocystis pneumonia in the distant past, as well as candidal esophagitis. 2. History of gastric large cell lymphoma 2002. 3. 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 At that time, the patient left against medical advice and did not complete a 4 week course of therapy for MRSA bacteremia. The patient has been out of care entirely since that time, in spite of our herculean efforts to get him to come into clinic and multiple telephone calls. Patient today tells me that he is in the middle of an altercation with his parents, who do not want to pay his apartment rent any longer. He tells me that they want to boot him out to the street. Because of that, the patient became suicidal, and presented to our emergency department yesterday with suicidal ideations, wanting to hang himself in front of his parents. He was found to have a left lower lobe pneumonia, and because of his suicidal ideations , was placed on M1 hold, and admitted and started on intravenous antibiotics. The patient tells me that he does not want to , but he is extremely upset with his parents. He tells me that he has had drenching night sweats lately, and has not been compliant with any therapy. He has not been taking Bactrim. He also admitted at the end of our conversation to smoking black tar heroin, but denies injecting it. He tells me that he has not injected heroin for several months now. He denies any visual complaints, no headache, but is nauseated. He does have some occasional abdominal pain. He has had some loose stool which he attributes to heroin withdrawal. He also reports a cough for the past several days. He denies any significant shortness of breath. He is not really bringing anything up. Objective: Vancomycin 1 g IV q.12 hours day 1 Zosyn 3.375 g IV q.6 hours day 1 Vital Signs Temp Pulse Resp BP Pulse Ox 36.5 C 72 19 107/86 H 99 09/19/17 12:00 09/19/17 12:00 09/19/17 12:00 09/19/17 12:00 09/19/17 12:00 Laboratory Results 09/19/17 04:58 09/19/17 13:05 09/18/17 09/19/17 09/20/17 05:59 05:59 05:59 Intake Total 1812 1000 Output Total 300 350 Balance 1512 650 Blood cultures are pending - Physical Exam General Appearance: cachetic, other (Nontoxic. Disheveled.) EENT: other (Horrific oral candidiasis, with concomitant angular chelitis) Respiratory: other (Decreased breath sounds left base, with some end-expiratory popping, otherwise fairly clear. No rales.) Cardiac/Chest: regular rate, rhythm, No systolic murmur Extremities: other (Cannot visualize any track rodriguez on his arms or legs.) Abdomen: other (Scaphoid. No significant tenderness to palpation.) Male Genitalia: other (Patient has some superficial ulcerations in his inguinal region where he has picked; necrotizing cellulitis has resolved.) Skin: other (Quarter-size superficial ulceration on the left side of his forehead with some surrounding pinkish erythema. The patient states this started as a pustule. No embolic lesions. Patient has dry shaped skin on the plantar aspects of his hands and feet.) Neuro/Psych: no motor/sensory deficits, oriented x 3 ICD10 Worksheet Patient Problems: Problems Problem Status Onset AIDS Acute Left lower lobe pneumonia Acute Candidiasis of the esophagus Active Pneumocystosis jiroveci pneumonia Active Substance abuse Active Acquired immune deficiency syndrome (AIDS) Acute Cellulitis Acute Cellulitis and abscess of face Acute Infection in abdomen Acute Left leg cellulitis Acute Methicillin resistant Staphylococcus aureus infection Acute ~12/31/16 Noncompliance with medications Acute Sciatica Acute
--- NOTE | 2017-09-19 16:20 | GCON ---
[f rep st] CONSULTATION PULMONARY/CRITICAL CARE CONSULTATION DATE OF CONSULTATION: 09/19/2017 REQUESTING PROVIDER: Zaria Haskins MD. REASON FOR REFERRAL: Evaluation and management of pneumonia. HISTORY: The patient is a 46-year-old male with a history of AIDS, for which he has been noncomplian t with therapy, and most recently had a CD4 count of 13 with a very high viral load. He has continue d to use heroin and alcohol with his last use about 3 days ago. He presented to the emergency depart ment with cough and shortness of breath. He was diagnosed with pneumonia and started on antibiotics. He currently states his main symptom is nausea. He also has some soreness in his mouth. He overal l feels poorly and weak. PAST MEDICAL HISTORY: 1. AIDS, noncompliant with therapy. 2. History of cellulitis with MRSA bacteremia 3 months ago. MEDICATIONS: None. ALLERGIES: Cephalosporins and Tramadol. SOCIAL HISTORY: The patient uses IV heroin, whiskey, and smokes a pack of cigarettes daily. He live s in an apartment but reports that he will be homeless soon. FAMILY HISTORY: Unremarkable. REVIEW OF SYSTEMS: A 10-point review of systems adds nothing to the history of present illness. PHYSICAL EXAMINATION: GENERAL: The patient is weak and ill-appearing and cachectic. VITAL SIGNS: His blood pressure is 107/86 with a heart rate of 72. He is afebrile. Oxygen saturations are 99% on room air. HEENT: Normocephalic and atraumatic. He has extensive thrush. No icterus. NECK: No J VD. Trachea is midline. CHEST: He has some rales in his left base. CARDIAC: Regular rate and rhy thm without murmur. ABDOMEN: Soft, nontender. Bowel sounds are present. EXTREMITIES: No clubbing , cyanosis, or edema. NEUROLOGIC: The patient is alert and oriented. He has no gross motor or sens ory deficits. LABORATORY: A chest x-ray shows a left lower lobe infiltrate. Images reviewed by me. Alkaline phosphatase is 1105. Venous lactate was 1.0 at the time of admission. ASSESSMENT: 1. Pneumonia. This should be considered nosocomial with hospitalization just over 3 months ago and a history of human immunodeficiency virus. He is currently being treated with Zosyn and vancomycin w hich is appropriate. He has minimal oxygen needs. 2. Acquired immunodeficiency syndrome. The patient has untreated acquired immunodeficiency syndrome with a very low CD4 count recently and noncompliant with therapy. He is certainly at risk for disse minated opportunistic infections including mycobacteria. 3. [place] esophagitis. 4. Elevated liver function tests. This could be due to hepatitis from mycobacterium avium complex, biliary obstruction. 5. Possible suicide ideation. The patient reported a plan to hang himself earlier but has not been expressing that here in the intensive care unit. He is currently on an M1 hold. 6. History of alcohol and heroin abuse. The patient is at risk for withdrawal. RECOMMENDATIONS: 1. Continue Zosyn. 2. Agree with adding fluconazole per Dr. Meneses. 3. Follow liver function tests. Consider CT scan of the abdomen tomorrow. 4. Consider mental health evaluation once the patient is clinically stabilized. 5. Follow for signs of alcohol/heroin withdrawal. /[id number]/MODL
[2017-09-19] MEDS: THIAMINE HCL 100 MG TAB PO SCH (17:27)
--- NOTE | 2017-09-19 20:18 | HOSPPROG ---
Hospitalist Progress Note Assessment/Plan: Due to severity of nosocomial pneumonia in this patient with known severe aids in immune deficiency noncompliant with anti retroviral therapy, he will need ongoing inpatient care with antibiotics and respiratory care. DIAGNOSES: -nosocomial pneumonia with recent hospitalization; organism unknown, broad range of possibilities but most likely is bacterial -immune deficiency due to AIDS -candidal esophagitis -aids with noncompliance with anti-retroviral therapy -diarrhea, multiple possible etiologies with AIDS and recent hosp stay w antibiotics -hypokalemia, multifactorial w poor intake and gi losses I saw this patient on hospitalist rounds today as well as multidisc icu rounds reviewed w Dr Morgan in detail PLANS: -continue antibiotic empiric therapy -continue respiratory care -continue therapy started by for his [place] esophagitis -K replacement -repeat chemistry in am, repeat cbc -stool studies to assess cause of diarrhea SUBJECTIVE: the patient is complaining of abdominal bloating, dyspnea, cough, weakness he is angry at his parents related to social situation at his home now also having diarrhea w no blood OBJECTIVE Vitals reviewed: Some tachypnea, blood pressures overall been stable better decreasing this evening,Normal pulse, not very febrile Crisis Counselor, my review: Sinus Exam: alert oriented extremely weak, thin skin warm dry color ok resps not labored lungs clear BSs heart regular abd soft nondistended nontender, bowel sounds present limbs warm, no edema iv site ok Lab data: K low at 2.6, rest of chems stable cbc stable from admission Objective: Vital Signs Temp Pulse Resp BP Pulse Ox 36.9 C 54 L 23 H 96/53 L 94 09/19/17 16:00 09/19/17 16:00 09/19/17 16:00 09/19/17 16:00 09/19/17 16:00 Microbiology 09/19/17 15:45 - Final Sputum, Expectorated Laboratory Results 09/19/17 04:58 09/19/17 13:05 09/18/17 09/19/17 09/20/17 06:59 06:59 06:59 Intake Total 1812 2390 Output Total 300 350 Balance 1512 2040 - Time Spent With Patient Time Spent with Patient: greater than 35 minutes Time Spent with Patient: Greater than 35 minutes spent on this patients care, greater than 50% of time spent counseling, educating, and coordinating care regarding the above mentioned plan. ICD10 Worksheet Patient Problems: Problems Problem Status Onset AIDS Acute Left lower lobe pneumonia Acute Candidiasis of the esophagus Active Pneumocystosis jiroveci pneumonia Active Substance abuse Active Acquired immune deficiency syndrome (AIDS) Acute Cellulitis Acute Cellulitis and abscess of face Acute Infection in abdomen Acute Left leg cellulitis Acute Methicillin resistant Staphylococcus aureus infection Acute ~12/31/16 Noncompliance with medications Acute Sciatica Acute
[2017-09-20] MEDS: POTASSIUM Cl (KCl) 40 MEQ in NS 1,000 ML IV SCH ×2 (03:24→15:31)
[2017-09-20] MEDS ORDERED: POTASSIUM CL 10 MEQ TAB PO ONE (05:12)
[2017-09-20] MEDS ORDERED: CALCIUM GLUCONATE 1 GM in D5W 50 ML IV ONE (05:13)
[2017-09-20] MEDS: PIPERACILLIN/TAZO 3.375 GM/DEX 50 ML IV SCH ×4 (05:17→23:35)
[2017-09-20] MEDS ORDERED: MAGNESIUM SULF 1 GM/DEXTROSE 100 ML IV ONE (05:26)
[2017-09-20] MEDS: chlordiazePOXIDE 25 MG CAP PO SCH ×3 (08:33→21:06)
[2017-09-20] MEDS: FOLIC ACID 1 MG TAB PO SCH (08:33)
[2017-09-20] MEDS: SULFAMETHOX/TMP 800/160 MG 1 TAB PO SCH (08:33)
[2017-09-20] MEDS: THIAMINE HCL 100 MG TAB PO SCH (08:33)
[2017-09-20] MEDS: MULTIVITAMINS 1 EACH TAB PO SCH (08:33)
--- NOTE | 2017-09-20 09:21 | PDMN ---
Medical Necessity Medical necessity: change to IP; los>2mn for nosocomial PNA w/severe AIDS, in immune deficiency, noncompliant with anti retroviral therapy; requires IV abx and respiratory care; comorbid lilia esophagitis, hx recent MRSA bacteremia and cellulitis, and PE; per order and progress note 09/19/17
--- NOTE | 2017-09-20 11:03 | PCMIDPN ---
Assessment/Plan: Assessment/Plan: * Left lower lobe pneumonia: Most likely due to typical bacterial pathogens with MRSA a consideration given prior history of MRSA bacteremia. Other gram- negative rods also of consideration given healthcare contact. Will continue vancomycin and Zosyn pending further data. Sputum shows mixed Gram stain with culture pending and Pneumocystis smear is pending. Blood cultures no growth to date. * AIDS: Patient noncompliant with anti-retroviral therapy. Marked immunosuppression with last CD4 count less than 20. Given marked increase in alkaline phosphatase, will proceed with CT scan of chest, abdomen and pelvis to assess for disseminated MAC or other opportunistic process. Patient is agreeable to study today. Serologic evaluation and blood cultures for AFB are pending. Continue Bactrim for PCP prophylaxis. * Esophageal candidiasis: Clinically improved with fluconazole. Small amount of residual thrush on palate and buccal mucosa. Notes swallowing improved. * History of MRSA bacteremia: Continue contact precautions. * Social circumstances: HIV case management to me with patient today regarding concerns. 09/20/17 10:59 Subjective: Patient angry about impending eviction. Overall feels better with ongoing productive cough which has foul taste and smell. Objective: Vital Signs Temp Pulse Resp BP Pulse Ox 36.4 C 61 24 H 100/62 95 09/20/17 08:00 09/20/17 08:00 09/20/17 08:00 09/20/17 08:00 09/20/17 08:00 Microbiology 09/19/17 14:46 Mycobacterial Smear (PARUL) - Final Blood 09/19/17 15:45 - Final Sputum, Expectorated Laboratory Results 09/19/17 04:58 09/20/17 04:16 09/19/17 09/20/17 09/21/17 05:59 05:59 05:59 Intake Total 1812 4281 Output Total 300 750 400 Balance 1512 3531 -400 Vancomycin # 2 Zosyn # 2 Bactrim prophylaxis Blood cultures x2 pending Cryptococcal antigen, Histoplasma antigen, and Pneumocystis smear pending Laboratory Tests 09/20/17 04:16 Total Bilirubin 0.3 AST 17 ALT 21 Alkaline Phosphatase 927 H Albumin 2.3 L - Physical Exam General Appearance: alert, no apparent distress, non-toxic, other (Cachectic) EENT: thrush (Small amount over palate and buccal mucosa) Respiratory: other (Decreased breath sounds left base), No respiratory distress Cardiac/Chest: regular rate, rhythm Extremities: No inflammation Abdomen: non-tender, No distended Skin: No embolic lesions Neuro/Psych: alert, other (Mild agitation) ICD10 Worksheet Patient Problems: Problems Problem Status Onset AIDS Acute Left lower lobe pneumonia Acute Candidiasis of the esophagus Active Pneumocystosis jiroveci pneumonia Active Substance abuse Active Acquired immune deficiency syndrome (AIDS) Acute Cellulitis Acute Cellulitis and abscess of face Acute Infection in abdomen Acute Left leg cellulitis Acute Methicillin resistant Staphylococcus aureus infection Acute ~12/31/16 Noncompliance with medications Acute Sciatica Acute
[2017-09-20] MEDS ORDERED: IOPAMIDOL (ISOVUE-300) 100 ML BTL ONE (12:31)
[2017-09-20] MEDS: VANCOMYCIN 1 GM in NS 250 ML IV SCH (13:10)
[2017-09-20] MEDS: ONDANSETRON 4 MG/2 ML VIAL IVP PRN ×2 (13:30→23:40)
--- NOTE | 2017-09-20 13:35 | HOSPPROG ---
Hospitalist Progress Note Assessment/Plan: DIAGNOSES: -nosocomial pneumonia with recent hospitalization; organism unknown, broad range of possibilities but most likely is bacterial -immune deficiency due to AIDS -candidal esophagitis -diarrheal illness currently in the setting of severe immune compromise, also receiving antibiotics * Differential diagnosis is broad including a number of infections, doubt this is due to narcotic withdrawal he is not showing any other signs of that -aids with noncompliance with anti-retroviral therapy; severely immune compromised at this time with very low T4 count -perianal subcutaneous inflammatory lesion concerning for possible infectious process but no palpable drainable material -severe protein calorie malnutrition body mass index 19, which looking at him actually appears and overestimate to me -ongoing heroin use, occasional cocaine use, does not appear to be using alcohol lately PLANS: -continue antibiotic empiric therapy for his pneumonia -await cultures and Pneumocystis studies -await radiology interpretation of CT scans, will review with Dr. Carey -continue respiratory care -continue therapy started by Dr. Morgan for his [place] esophagitis -will stop CIWA protocol -will order stool pathogen panel -all follow the perianal lesion closely Seen by me today on hospitalist rounds as well as multidisciplinary rounds and icu I reviewed his care with Dr. Brooks Escobar and will review with Dr. Johnathan Carey SUBJECTIVE: Denies shortness of breath or chest pain Denies abdominal pain but is having frequent diarrheal stools here without blood , does have a painful spot adjacent to his anus that is been present for I think a few days but he is unclear on the timing of this; unclear when the diarrhea started as well No chills or sweats Very weak Did vomit once this morning after having CT of the abdomen, had eaten some a meal prior to that On further review of his social history at this time he is time me that he does not use alcohol, stop drinking some time ago. Also says his cocaine use is infrequent, last use 1 week ago before admission. OBJECTIVE Vitals reviewed: Intermittent tachypnea to mid 20s, blood pressures slightly low, otherwise stable vitals without fever Physician Assistant, my review: Sinus Exam: alert oriented reasonably relaxed at this time skin warm dry color ok resps not labored lungs clear BSs heart regular abd soft nondistended nontender, bowel sounds present On examination of the anorectal area he has a small perianal subcutaneous soft tissue swelling that is firm without any palpable fluctuance, it is mildly tender and the skin overlying is mildly erythematous but intact limbs warm, no edema Overdose quite cachectic with marked decreases in lean body mass and subcutaneous fat iv site ok CT scans of chest and abdomen and pelvis done today, I reviewed the images though they have not yet been read by radiologist, my interpretation: Dense left lower lobe infiltrates persist. The mediastinal structures appear overall normal to me. In the abdomen he has a significant gastric distention with food and fluid, and there is also distention of the urinary bladder. There are some small renal cysts but the other intra-abdominal organs appear unremarkable to me at the moment. Laboratory data: Stable anemia otherwise normal CBC Unremarkable basic met panel; potassium notably better today than yesterday LDH remains elevated greater than 900, otherwise normal liver panel Objective: Vital Signs Temp Pulse Resp BP Pulse Ox 36.4 C 58 L 16 94/59 L 97 09/20/17 08:00 09/20/17 12:00 09/20/17 12:00 09/20/17 12:00 09/20/17 12:00 Microbiology 09/19/17 14:46 Mycobacterial Smear (PARUL) - Final Blood 09/19/17 15:45 - Final Sputum, Expectorated Laboratory Results 09/19/17 04:58 09/20/17 11:14 09/19/17 09/20/17 09/21/17 06:59 06:59 06:59 Intake Total 1812 4281 Output Total 300 750 600 Balance 1512 3531 -600 - Time Spent With Patient Time Spent with Patient: greater than 35 minutes Time Spent with Patient: Greater than 35 minutes spent on this patients care, greater than 50% of time spent counseling, educating, and coordinating care regarding the above mentioned plan. ICD10 Worksheet Patient Problems: Problems Problem Status Onset AIDS Acute Left lower lobe pneumonia Acute Candidiasis of the esophagus Active Pneumocystosis jiroveci pneumonia Active Substance abuse Active Acquired immune deficiency syndrome (AIDS) Acute Cellulitis Acute Cellulitis and abscess of face Acute Infection in abdomen Acute Left leg cellulitis Acute Methicillin resistant Staphylococcus aureus infection Acute ~12/31/16 Noncompliance with medications Acute Sciatica Acute
[2017-09-20] MEDS ORDERED: FLUCONAZOLE/NaCl 100 ML IV SCH (14:00)
[2017-09-20] MEDS ORDERED: POTASSIUM CL 20 MEQ TAB PO ONE (21:58)
[2017-09-20] MEDS: VANCOMYCIN 125 MG/2.5 ML UDL PO SCH (23:34)
[2017-09-20] MEDS: LORazepam 0.5 MG TAB PO PRN (23:44)
[2017-09-21] MEDS: VANCOMYCIN 1 GM in NS 250 ML IV SCH ×3 (00:24→23:30)
[2017-09-21] MEDS: PIPERACILLIN/TAZO 3.375 GM/DEX 50 ML IV SCH (05:04)
[2017-09-21] MEDS: VANCOMYCIN 125 MG/2.5 ML UDL PO SCH ×4 (05:44→21:16)
[2017-09-21] MEDS ORDERED: MAGNESIUM SULF 1 GM/DEXTROSE 100 ML IV ONE (05:56)
--- NOTE | 2017-09-21 09:05 | PCMIDPN ---
Assessment/Plan: # AIDS off ARV at admit --PCP ppx w Bactrim --re-start ARV, descovy + dolutegravir, Rx written to be filled at [facility] and brought to floor # LLL PNA. gram positives seem most likely pneumococcus, MRSA. PCP negative. On RA, minimal resp sx --dc zosyn --continue vancomycin, trough a little low yesterday. Recheck today # Esophageal candidiasis: on fluconazole, change to PO fluconazole # Diarrhea with + Cdiff. Difficult to say if infection or colonization due to presence of diarrhea. If another etiology ID'd then could more strongly consider colonization. --decrease PO Vancomycin 125mg PO QID --r/o microsporidia, cryptosporidium # Proctitis: unclear etiology, seen on CT scan --r/o LGV/chlamydia, swabs collected by ia --perianal ulcers c/w HSV vs MRSA observed on exam today. HSV swab collected # Elevated AP: check RUQ although CT scan unrevealing --AFB blood cx pending # h/o MRSA: Contact precautions. Recent MRSA bacteremia, blood culture remain negative meds vancomycin 1gm IV q12h fluconazole 200mg IV daily Vancomycin 250mg PO QID Bactrim DS 1 PO daily Microbiology 09/20/17 15:00 Stool Gastrointestinal Tract Panel (PCR) - Final Clostridium Difficile Detected 09/19/17 15:45 Sputum,: URF 09/19/17 14:46 Blood AFB: Pending 09/18/17 22:55 Blood cx: NGTD Subjective: patient c/o 4 loose stools a day since being hospitalized mild rectal burning no abdominal pain resp symptoms improved Objective: Vital Signs Temp Pulse Resp BP Pulse Ox 36.9 C 59 L 16 97/59 L 100 09/21/17 04:00 09/21/17 07:34 09/21/17 07:34 09/21/17 07:34 09/21/17 04:00 Microbiology 09/20/17 15:00 Gastrointestinal Tract Panel (PCR) - Final Stool Clostridium Difficile Detected 09/19/17 15:45 - Final Sputum, Expectorated Laboratory Results 09/19/17 04:58 09/21/17 05:23 09/20/17 09/21/17 09/22/17 05:59 05:59 05:59 Intake Total 4281 3369 Output Total 750 2910 Balance 4342 412 - Physical Exam General Appearance: thin, non-toxic, other (sleepy) EENT: No thrush (but limited exam ) Respiratory: lungs clear, No accessory muscle use Neck: supple Cardiac/Chest: bradycardia Extremities: other (peripheral wasting), No pedal edema Abdomen: non-tender, soft, No hepatomegaly Male Genitalia: No caldwell Rectal: other (4 superficial perianal ulcerations, tender) Skin: warm/dry, pallor, No jaundice Neuro/Psych: alert, normal mood/affect, oriented x 3 - Time Spent With Patient Time Spent with Patient: greater than 35 minutes Time Spent with Patient: Greater than 35 minutes spent on this patients care, greater than 50% of time spent counseling, educating, and coordinating care regarding the above mentioned plan. ICD10 Worksheet Patient Problems: Problems Problem Status Onset AIDS Acute Left lower lobe pneumonia Acute Candidiasis of the esophagus Active Pneumocystosis jiroveci pneumonia Active Substance abuse Active Acquired immune deficiency syndrome (AIDS) Acute Cellulitis Acute Cellulitis and abscess of face Acute Infection in abdomen Acute Left leg cellulitis Acute Methicillin resistant Staphylococcus aureus infection Acute ~12/31/16 Noncompliance with medications Acute Sciatica Acute
[2017-09-21] MEDS: SULFAMETHOX/TMP 800/160 MG 1 TAB PO SCH (10:04)
[2017-09-21] MEDS: THIAMINE HCL 100 MG TAB PO SCH (10:05)
[2017-09-21] MEDS: chlordiazePOXIDE 25 MG CAP PO SCH ×3 (10:05→21:15)
[2017-09-21] MEDS: FOLIC ACID 1 MG TAB PO SCH (10:05)
[2017-09-21] MEDS: MULTIVITAMINS 1 EACH TAB PO SCH (10:05)
[2017-09-21] MEDS: FLUCONAZOLE 100 MG TAB PO SCH (11:26)
--- NOTE | 2017-09-21 12:35 | HOSPPROG ---
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 -candidal esophagitis * Symptoms improving on Diflucan, he is swallowing more easily -diarrheal illness currently in the setting of severe immune compromise, also receiving antibiotics * C diff present on stool pathogen panel, but with his severe AIDS this could potentially be a colonizer and there might be other organisms present not identified in the METAL FILER panel, further tests pending -aids with noncompliance with anti-retroviral therapy; severely immune compromised at this time with very low T4 count -perianal ulcerations have now developed, etiology uncertain * Tests pending to look for infectious etiologies -severe protein calorie malnutrition body mass index 19, which looking at him actually appears and overestimate to me -ongoing intermittent heroin use, occasional cocaine use, does not appear to be using alcohol lately * I do not think he is having any alcohol withdrawal or withdrawal from other substances -mental health issues * At the time of admission he had expressed some suicidal and homicidal ideation. At this time I have had a lengthy conversation with him today about his situation. He does not have any suicidal ideas or tendencies a at this time. His expressed ideas at the time of admission reflected his severe frustration at not only his significant illness but also his social situation. He describes to me that his father and stepmother unknown a condo where he apparently has been living and he says that this home apparently is part of a trust fund placed in his name. Currently his father and stepmother are planning to evict him from this residence 4 days from now on September 26. He believes that this is illegal and he wishes to press criminal charges against his stepmother. 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 He has no desire are intention to cause harm to himself or anyone else and says that goes very strongly against all of his catholic another believes. At this time I do not believe he needs to be on M1 hold PLANS: -continue antibiotic empiric therapy for his pneumonia -await cultures and Pneumocystis and other studies -continue respiratory care -continue therapy started by Dr. Morgan for his [place] esophagitis -await diagnostic workup for etiology of perianal ulcers -I will vacate his M1 hold at this time, any does not require ICU stay so will transfer to [facility] Seen by me today on hospitalist rounds as well as multidisciplinary rounds in icu I reviewed his care with Dr. Brooks Escobar and with Dr. Nathaly Webber today. Dr. Webber his repeated anal exam today. She did not notice the subcutaneous perianal nodule that I had found yesterday but now notices multiple perianal ulcers. She is obtained diagnostic samples from these ulcers to look for infectious etiologies. SUBJECTIVE: Denies shortness of breath or chest pain Still with frequent diarrheal stools here without blood or blood, still some perianal discomfort but is not as bad as yesterday No chills or sweats Very weak Vomited again last night but this morning ate 4 bowls of oatmeal without problems. On further review of his social history at this time he is time me that he does not use alcohol, stop drinking some time ago. Also says his cocaine use is infrequent, last use 1 week ago before admission. 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 He does have significant frustration around his situation with housing job described elsewhere in this note. He is not confused or anxious. He is expressing to me very clearly that he has no desire or worry about hurting himself in any way or hurting any other people in any way. He is looking for help in taking legal action against his stepmother. skin warm dry color ok resps not labored lungs clear BSs heart regular abd soft nondistended nontender, bowel sounds present On examination of the anorectal area he has a small perianal subcutaneous soft tissue swelling that is firm without any palpable fluctuance, it is mildly tender and the skin overlying is mildly erythematous but intact limbs warm, no edema Overdose quite cachectic with marked decreases in lean body mass and subcutaneous fat iv site ok CT scans of chest and abdomen and pelvis done today, I reviewed the images though they have not yet been read by radiologist, my interpretation: Dense left lower lobe infiltrates persist. The mediastinal structures appear overall normal to me. In the abdomen he has a significant gastric distention with food and fluid, and there is also distention of the urinary bladder. There are some small renal cysts but the other intra-abdominal organs appear unremarkable to me at the moment. Laboratory data: Stable anemia otherwise normal CBC Unremarkable basic met panel; potassium notably better today than yesterday LDH remains elevated greater than 900, otherwise normal liver panel Objective: Vital Signs Temp Pulse Resp BP Pulse Ox 36.9 C 59 L 16 97/59 L 100 09/21/17 04:00 09/21/17 07:34 09/21/17 07:34 09/21/17 07:34 09/21/17 04:00 Microbiology 09/20/17 15:00 Gastrointestinal Tract Panel (PCR) - Final Stool Clostridium Difficile Detected 09/19/17 15:45 - Final Sputum, Expectorated Laboratory Results 09/19/17 04:58 09/21/17 05:23 09/20/17 09/21/17 09/22/17 06:59 06:59 06:59 Intake Total 4281 3369 Output Total 750 2910 350 Balance 3531 459 -350 - Time Spent With Patient Time Spent with Patient: greater than 35 minutes Time Spent with Patient: Greater than 35 minutes spent on this patients care, greater than 50% of time spent counseling, educating, and coordinating care regarding the above mentioned plan. ICD10 Worksheet Patient Problems: Problems Problem Status Onset AIDS Acute Left lower lobe pneumonia Acute Candidiasis of the esophagus Active Pneumocystosis jiroveci pneumonia Active Substance abuse Active Acquired immune deficiency syndrome (AIDS) Acute Cellulitis Acute Cellulitis and abscess of face Acute Infection in abdomen Acute Left leg cellulitis Acute Methicillin resistant Staphylococcus aureus infection Acute ~12/31/16 Noncompliance with medications Acute Sciatica Acute
[2017-09-21] MEDS: POTASSIUM Cl (KCl) 40 MEQ in NS 1,000 ML IV SCH (12:51)
[2017-09-21] MEDS: TIVICAY 50 MG PO SCH (15:02)
[2017-09-21] MEDS: DESCOVY PO SCH (15:05)
[2017-09-21] MEDS ORDERED: POTASSIUM CL 10 MEQ TAB PO ONE (20:43)
[2017-09-21] MEDS ORDERED: CALCIUM CARBONATE 500 MG CHEWABLE TAB PO PRN (21:28)
[2017-09-21] MEDS ORDERED: ALPRAZolam 0.25 MG TAB PO PRN (21:28)
[2017-09-21] MEDS: ONDANSETRON 4 MG/2 ML VIAL IVP PRN (23:39)
[2017-09-22] MEDS: POTASSIUM Cl (KCl) 40 MEQ in NS 1,000 ML IV SCH ×2 (05:54→18:27)
[2017-09-22] MEDS: VANCOMYCIN 125 MG/2.5 ML UDL PO SCH ×4 (05:55→21:17)
--- NOTE | 2017-09-22 09:06 | PCMIDPN ---
Assessment/Plan: 1. Multilobar pneumonia, most prominent left lower lobe without effusion : Zosyn discontinued yesterday. On vancomycin monotherapy, which should suffice. Trough okay. That being said, if deteriorates from respiratory standpoint, would have low threshold to add back broader coverage for gram-negatives such as H flu, etc. Recheck oxygen saturation this morning given that was slightly low earlier today. Pneumocystis stain negative. 2. End-stage AIDS: Antiretrovirals restarted yesterday in the form of Descovy and Dolutegravir. Continue. Continue Bactrim double strength daily for Pneumocystis prophylaxis. Incredibly, CMV PCR negative, as is serum cryptococcal antigen and urine histoplasmosis antigen. AFB blood culture pending. 3. Esophageal candidiasis: Markedly better. Continue p.o. Fluconazole 200 mg daily times 14 days, with p.r.n. Clotrimazole troches thereafter. 4. Diarrhea with C diff positivity on stool PCR: Patient is being treated for C difficile colitis with vancomycin 125 mg p.o. Four times daily. Continue. Testing for microsporidia and Isospora pending. 5. Proctitis with surrounding perianal ulcerations: HSV PCR pending. GC chlamydia testing pending. Will also obtain syphilis IgG today. 6. Elevated alkaline phosphatase: No obvious evidence of disseminated MAC on CT scan of the abdomen and pelvis. AFB blood culture pending. GGT is normal. No evidence of biliary ductal dilatation on CT concerning for AIDS cholangitis. Will recheck tomorrow and follow. Consider ultrasound of the right upper quadrant moving forward; hold off for now. Over 25 min spent with this patient today. 09/22/17 09:07 Subjective: Patient tells me he unfortunately stooled on the floor in his bathroom, as he did not make it to the toilet in time. Feels that his diarrhea is improving. Ate all of his breakfast this morning without nausea or vomiting. Cough is also better. About to take a shower, therefore was only able to perform a limited physical exam per patient request. Objective: Vancomycin 1 g IV q.12 hours day 3 Bactrim DS 1 tab daily Fluconazole 200 mg p. O. Daily day 3 Descovy 1 tab p. O. Daily Dolutegravir 50 mg 1 tab p.o. Daily Vancomycin 125 mg p.o. Four times daily day 06/07 Afebrile 90% on room air Vital Signs Temp Pulse Resp BP Pulse Ox 36.6 C 83 16 103/67 90 L 09/22/17 08:00 09/22/17 08:00 09/22/17 08:00 09/22/17 08:00 09/22/17 08:00 Microbiology 09/19/17 15:45 - Final Sputum, Expectorated Sputum Culture - Final Laboratory Results 09/19/17 04:58 09/22/17 04:12 09/21/17 09/22/17 09/23/17 05:59 05:59 05:59 Intake Total 8289 1125 Output Total 7096 1060 Balance 459 -1225 AFB blood culture negative Routine blood cultures negative Sputum with oral judie - Physical Exam General Appearance: no apparent distress, cachetic EENT: other (No evidence of oral thrush.) Skin: No rash ICD10 Worksheet Patient Problems: Problems Problem Status Onset AIDS Acute Left lower lobe pneumonia Acute Candidiasis of the esophagus Active Pneumocystosis jiroveci pneumonia Active Substance abuse Active Acquired immune deficiency syndrome (AIDS) Acute Cellulitis Acute Cellulitis and abscess of face Acute Infection in abdomen Acute Left leg cellulitis Acute Methicillin resistant Staphylococcus aureus infection Acute ~12/31/16 Noncompliance with medications Acute Sciatica Acute
[2017-09-22] MEDS: FLUCONAZOLE 100 MG TAB PO SCH (09:44)
[2017-09-22] MEDS: MULTIVITAMINS 1 EACH TAB PO SCH (09:44)
[2017-09-22] MEDS: chlordiazePOXIDE 25 MG CAP PO SCH ×3 (09:44→21:17)
[2017-09-22] MEDS: SULFAMETHOX/TMP 800/160 MG 1 TAB PO SCH (09:44)
[2017-09-22] MEDS: THIAMINE HCL 100 MG TAB PO SCH (09:44)
[2017-09-22] MEDS: FOLIC ACID 1 MG TAB PO SCH (09:44)
[2017-09-22] MEDS: DESCOVY PO SCH (09:49)
[2017-09-22] MEDS: TIVICAY 50 MG PO SCH (09:49)
[2017-09-22] MEDS ORDERED: MAGNESIUM SULF 1 GM/DEXTROSE 100 ML IV ONE (10:48)
[2017-09-22] MEDS: VANCOMYCIN 1 GM in NS 250 ML IV SCH ×2 (11:50→23:28)
[2017-09-22 12:44] LABS: GC AMPLIFICATION GENPROBE NEGATIVE (NEGATIVE)
--- NOTE | 2017-09-22 16:34 | ASMTCMCOM ---
CM Note CM Note Notes: Chart reviewed. Incomplete evaluation per [facility]. Called [facility] and they are reviewing chart, Patient has been perseverating on his parents and pending eviction form a property they own in [facility] where he has let people move in to help him. I informed him I could not initiate any legal action on his behalf. Looking through the notes he has not been compliant with care in the past and has had previous issues with coping. CM to follow. Plan: TBD Date Signed: 09/22/2017 04:34 PM Electronically Signed By:Shannan Root RN
--- NOTE | 2017-09-22 17:56 | HOSPPROG ---
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 -candidal esophagitis * Symptoms improving on Diflucan, he is swallowing more easily -diarrheal illness currently in the setting of severe immune compromise, also receiving antibiotics * C diff present on stool pathogen panel, but with his severe AIDS this could potentially be a colonizer and there might be other organisms present not identified in the ANIMAL GENETICIST panel, further tests pending -aids with noncompliance with anti-retroviral therapy; severely immune compromised at this time with very low T4 count -perianal ulcerations have now developed, etiology uncertain * Tests pending to look for infectious etiologies -severe protein calorie malnutrition body mass index 19, which looking at him actually appears and overestimate to me -ongoing intermittent heroin use, occasional cocaine use, does not appear to be using alcohol lately * I do not think he is having any alcohol withdrawal or withdrawal from other substances -mental health issues * At the time of admission he had expressed some suicidal and homicidal ideation. At this time I have had a lengthy conversation with him today about his situation. He does not have any suicidal ideas or tendencies a at this time. His expressed ideas at the time of admission reflected his severe frustration at not only his significant illness but also his social situation. He describes to me that his father and stepmother unknown a condo where he apparently has been living and he says that this home apparently is part of a trust fund placed in his name. Currently his father and stepmother are planning to evict him from this residence 4 days from now on September 26. He believes that this is illegal and he wishes to press criminal charges against his stepmother. 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 He has no desire are intention to cause harm to himself or anyone else and says that goes very strongly against all of his presybeterian another believes. At this time I do not believe he needs to be on M1 hold PLANS: -continue antibiotic empiric therapy for his pneumonia -await cultures and Pneumocystis and other studies -continue respiratory care -continue therapy started by Dr. Morgan for his [place] esophagitis -await diagnostic workup for etiology of perianal ulcers -continue vancomycin orally for C diff in stool, still pending studies to determine if this is really the pathogen or possibly other pathogens related HIV -does not appear homicidal or suicidal; M1 hold was vacated 09/21 Seen by me today on hospitalist rounds as well as multidisciplinary rounds in icu I reviewed his care with Dr. Brooks Escobar and with Dr. 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: Sinus Exam: Alert oriented relaxed, conversant normally, fairly normal affect for him today skin warm dry color ok resps not labored lungs clear BSs heart regular abd soft nondistended nontender, bowel sounds present Overdose quite cachectic with marked decreases in lean body mass and subcutaneous fat iv site ok Laboratory data: Potassium this morning normal, repeat this afternoon pending Microbiology data: Cryptococcal antigen and Chlamydia tests have come back negative No other new reports from any cultures or the multiple other infectious pending tests Objective: Vital Signs Temp Pulse Resp BP Pulse Ox 36.8 C 82 16 90/51 L 93 09/22/17 15:12 09/22/17 15:12 09/22/17 15:12 09/22/17 15:12 09/22/17 15:12 Microbiology 09/20/17 09:51 Herpes Simplex Virus I (PCR) - Final Unspecified Hsv-1 Dna Not Detected Herpes Simplex Virus II (PCR) - Final Hsv-2 Dna Not Detected - Final 09/19/17 15:45 - Final Sputum, Expectorated Sputum Culture - Final Laboratory Results 09/19/17 04:58 09/21/17 09/22/17 09/23/17 06:59 06:59 06:59 Intake Total 3369 1125 400 Output Total 4070 2350 Balance 459 -1225 400 - Time Spent With Patient Time Spent with Patient: greater than 35 minutes Time Spent with Patient: Greater than 35 minutes spent on this patients care, greater than 50% of time spent counseling, educating, and coordinating care regarding the above mentioned plan. ICD10 Worksheet Patient Problems: Problems Problem Status Onset AIDS Acute Left lower lobe pneumonia Acute Candidiasis of the esophagus Active Pneumocystosis jiroveci pneumonia Active Substance abuse Active Acquired immune deficiency syndrome (AIDS) Acute Cellulitis Acute Cellulitis and abscess of face Acute Infection in abdomen Acute Left leg cellulitis Acute Methicillin resistant Staphylococcus aureus infection Acute ~12/31/16 Noncompliance with medications Acute Sciatica Acute
[2017-09-22] MEDS: CALCIUM CARBONATE 500 MG CHEWABLE TAB PO PRN (23:27)
[2017-09-23] MEDS: CALCIUM CARBONATE 500 MG CHEWABLE TAB PO PRN (02:25)
[2017-09-23] MEDS: ONDANSETRON 4 MG/2 ML VIAL IVP PRN ×2 (02:25→08:35)
[2017-09-23] MEDS: VANCOMYCIN 125 MG/2.5 ML UDL PO SCH ×4 (06:19→21:02)
[2017-09-23] MEDS: FLUCONAZOLE 100 MG TAB PO SCH (08:05)
[2017-09-23] MEDS: MULTIVITAMINS 1 EACH TAB PO SCH (08:05)
[2017-09-23] MEDS: SULFAMETHOX/TMP 800/160 MG 1 TAB PO SCH (08:05)
[2017-09-23] MEDS: THIAMINE HCL 100 MG TAB PO SCH (08:05)
[2017-09-23] MEDS: FOLIC ACID 1 MG TAB PO SCH (08:05)
[2017-09-23] MEDS: chlordiazePOXIDE 25 MG CAP PO SCH ×3 (08:05→21:02)
[2017-09-23] MEDS: DESCOVY PO SCH (08:06)
[2017-09-23] MEDS: TIVICAY 50 MG PO SCH (08:07)
--- NOTE | 2017-09-23 13:06 | PCMIDPN ---
Assessment/Plan: 1. Multilobar pneumonia, most prominent left lower lobe without effusion : Zosyn discontinued . On vancomycin monotherapy, which should suffice. Repeat trough okay. That being said, if deteriorates from respiratory standpoint, would have low threshold to add back broader coverage for gram-negatives such as H flu, etc. Repeat chest x-ray tomorrow. 2. End-stage AIDS: Antiretrovirals restarted yesterday in the form of Descovy and Dolutegravir. Continue. Continue Bactrim double strength daily for Pneumocystis prophylaxis. Incredibly, CMV PCR negative, as is serum cryptococcal antigen and urine histoplasmosis antigen. AFB blood culture pending. 3. Esophageal candidiasis: Markedly better. Continue p.o. Fluconazole 200 mg daily times 14 days, with p.r.n. Clotrimazole troches thereafter. 4. Diarrhea with C diff positivity on stool PCR: Patient is being treated for C difficile colitis with vancomycin 125 mg p.o. Four times daily. Continue. Testing for microsporidia and Isospora pending. 5. Proctitis with surrounding perianal ulcerations: HSV PCR negative, as are GC chlamydia. Syphilis IgG pending. 6. Elevated alkaline phosphatase: No obvious evidence of disseminated MAC on CT scan of the abdomen and pelvis. AFB blood culture pending. GGT is normal. No evidence of biliary ductal dilatation on CT concerning for AIDS cholangitis. Will order right upper quadrant ultrasound to assess for AIDS cholangiopathy. 09/23/17 13:07 Subjective: Lying in bed, drapes are closed, lights are out and it is noon. I asked him to please get up get dressed, open the drapes and go outside with the aid in a wheelchair. He agrees to that. He states that his breathing is improved. He is still having some diarrhea, nausea and vomiting, which are intermittent. Objective: Vancomycin 1 g IV q.12 hours day 4 Bactrim DS daily Fluconazole 200 mg p. O. Daily day for Descovy/Dolutegravir daily Vancomycin 125 mg p.o. Four times daily day 07/08 Afebrile 90% on room air Vital Signs Temp Pulse Resp BP Pulse Ox 36.4 C 87 16 104/66 90 L 09/23/17 08:00 09/23/17 08:00 09/23/17 08:00 09/23/17 08:00 09/23/17 08:00 Microbiology 09/20/17 09:51 Herpes Simplex Virus I (PCR) - Final Unspecified Hsv-1 Dna Not Detected Herpes Simplex Virus II (PCR) - Final Hsv-2 Dna Not Detected - Final Laboratory Results 09/19/17 04:58 09/23/17 04:00 09/22/17 09/23/17 09/24/17 05:59 05:59 05:59 Intake Total 1125 3180 Output Total 8530 1175 Balance -1225 2004 Gonorrhea chlamydia negative, HSV PCR negative Blood cultures for AFB and regular blood cultures remain negative - Physical Exam General Appearance: no apparent distress, cachetic EENT: pharynx normal, No thrush Respiratory: lungs clear Neck: full range of motion Cardiac/Chest: regular rate, rhythm Abdomen: non-tender, soft Skin: No rash ICD10 Worksheet Patient Problems: Problems Problem Status Onset AIDS Acute Left lower lobe pneumonia Acute Candidiasis of the esophagus Active Pneumocystosis jiroveci pneumonia Active Substance abuse Active Acquired immune deficiency syndrome (AIDS) Acute Cellulitis Acute Cellulitis and abscess of face Acute Infection in abdomen Acute Left leg cellulitis Acute Methicillin resistant Staphylococcus aureus infection Acute ~12/31/16 Noncompliance with medications Acute Sciatica Acute
[2017-09-23] MEDS: VANCOMYCIN 1 GM in NS 250 ML IV SCH ×2 (14:20→23:54)
[2017-09-23] MEDS: PANTOPRAZOLE SODIUM 40 MG TAB PO SCH (17:18)
--- NOTE | 2017-09-23 19:06 | HOSPPROG ---
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 -candidal esophagitis * Symptoms improving on Diflucan, he is swallowing more easily -diarrheal illness currently in the setting of severe immune compromise, also receiving antibiotics * C diff present on stool pathogen panel, but with his severe AIDS this could potentially be a colonizer and there might be other organisms present not identified in the [employer] panel, further tests pending -heartburn probably reflecting reflux and causing excess pain with his [place] esophagitis, new diagnosis today * Will add some treatments for this to try and relieve the symptoms -aids with noncompliance with anti-retroviral therapy; severely immune compromised at this time with very low T4 count -perianal ulcerations have now developed, etiology uncertain * Tests pending to look for infectious etiologies -severe protein calorie malnutrition body mass index 19, which looking at him actually appears and overestimate to me -ongoing intermittent heroin use, occasional cocaine use, does not appear to be using alcohol lately * I do not think he is having any alcohol withdrawal or withdrawal from other substances -mental health issues * At the time of admission he had expressed some suicidal and homicidal ideation. At this time I have had a lengthy conversation with him today about his situation. He does not have any suicidal ideas or tendencies a at this time. His expressed ideas at the time of admission reflected his severe frustration at not only his significant illness but also his social situation. He describes to me that his father and stepmother unknown a condo where he apparently has been living and he says that this home apparently is part of a trust fund placed in his name. Currently his father and stepmother are planning to evict him from this residence 4 days from now on September 26. He believes that this is illegal and he wishes to press criminal charges against his stepmother. 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 He has no desire are intention to cause harm to himself or anyone else and says that goes very strongly against all of his catholic another believes. At this time I do not believe he needs to be on M1 hold PLANS: -I have added proton pump inhibitor daily and HS dose of Carafate to try and treat his nocturnal heartburn symptoms will follow up tomorrow -continue antibiotic empiric therapy for his pneumonia -await cultures and Pneumocystis and other studies -continue respiratory care -repeat chest x-ray in morning -continue therapy started by Dr. Morgan for his [place] esophagitis -await diagnostic workup for etiology of perianal ulcers -continue vancomycin orally for C diff in stool, still pending studies to determine if this is really the pathogen or possibly other pathogens related HIV -does not appear homicidal or suicidal; M1 hold was vacated 09/21 Seen by me today on hospitalist rounds as well as multidisciplinary rounds in icu I reviewed his care with Dr. Brooks Escobar and with Dr. 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 [employer], my review: Sinus Exam: Alert oriented relaxed, conversant normally, fairly normal affect for him today skin warm dry color ok resps not labored lungs clear BSs heart regular abd soft nondistended nontender, bowel sounds present Overdose quite cachectic with marked decreases in lean body mass and subcutaneous fat iv site ok Laboratory data: LDH is now up to a 1000, the risk of his chemistry panels are no Microbiology data: Cryptococcal antigen and Chlamydia tests have come back negative So far no new positive findings from his varicella [place] infectious tests Abdominal ultrasound was done today to look for possibility of AIDS cholangiopathy causing high LDH, I reviewed the images with Dr. Goel as well as the interpretation from him, there is no evidence of a cholangiopathy. He has some mild gallbladder wall thickening with contraction of the gallbladder which is likely the cause of that thickening. Objective: Vital Signs Temp Pulse Resp BP Pulse Ox 36.5 C 89 16 104/58 L 91 L 09/23/17 15:43 09/23/17 15:43 09/23/17 15:43 09/23/17 15:43 09/23/17 15:43 Laboratory Results 09/19/17 04:58 09/23/17 04:00 09/22/17 09/23/17 09/24/17 06:59 06:59 06:59 Intake Total 1125 3180 Output Total 4680 1175 Balance -1225 2005 - Time Spent With Patient Time Spent with Patient: greater than 35 minutes Time Spent with Patient: Greater than 35 minutes spent on this patients care, greater than 50% of time spent counseling, educating, and coordinating care regarding the above mentioned plan. ICD10 Worksheet Patient Problems: Problems Problem Status Onset AIDS Acute Left lower lobe pneumonia Acute Candidiasis of the esophagus Active Pneumocystosis jiroveci pneumonia Active Substance abuse Active Acquired immune deficiency syndrome (AIDS) Acute Cellulitis Acute Cellulitis and abscess of face Acute Infection in abdomen Acute Left leg cellulitis Acute Methicillin resistant Staphylococcus aureus infection Acute ~12/31/16 Noncompliance with medications Acute Sciatica Acute
[2017-09-23] MEDS: SUCRALFATE 1 GM/10 ML UDCUP PO SCH (21:02)
[2017-09-24] MEDS: VANCOMYCIN 125 MG/2.5 ML UDL PO SCH ×4 (06:00→21:59)
[2017-09-24] MEDS: chlordiazePOXIDE 25 MG CAP PO SCH ×2 (11:00→16:47)
[2017-09-24] MEDS: FLUCONAZOLE 100 MG TAB PO SCH (11:01)
[2017-09-24] MEDS: MULTIVITAMINS 1 EACH TAB PO SCH (11:01)
[2017-09-24] MEDS: THIAMINE HCL 100 MG TAB PO SCH (11:01)
[2017-09-24] MEDS: FOLIC ACID 1 MG TAB PO SCH (11:01)
[2017-09-24] MEDS: SULFAMETHOX/TMP 800/160 MG 1 TAB PO SCH (11:01)
[2017-09-24] MEDS: PANTOPRAZOLE SODIUM 40 MG TAB PO SCH (11:01)
[2017-09-24] MEDS: TIVICAY 50 MG PO SCH (11:02)
[2017-09-24] MEDS: DESCOVY PO SCH (11:02)
--- NOTE | 2017-09-24 13:58 | PCMIDPN ---
Assessment/Plan: 1. Multilobar pneumonia, most prominent left lower lobe without effusion : Will order repeat chest x-ray today. He seems to be stable, consider discharge in the next day or 2 on oral therapy if he remains stable, with improved diarrhea as per below. 2. End-stage AIDS: Continue Descovy and Dolutegravir. Continue Bactrim DS daily for Pneumocystis prophylaxis. 3. Esophageal candidiasis: Markedly better. Continue p.o. Fluconazole 200 mg daily times 14 days, with p.r.n. Clotrimazole troches thereafter. 4. Diarrhea with C diff positivity on stool PCR: Patient is being treated for C difficile colitis with vancomycin 125 mg p.o. Four times daily. Continue. Testing for microsporidia and Isospora pending. 5. Proctitis with surrounding perianal ulcerations: HSV PCR negative, as are GC chlamydia. Syphilis IgG negative. Query related to underlying C difficile colitis and irritation from diarrhea. 6. Elevated alkaline phosphatase: No obvious evidence of disseminated MAC on CT scan of the abdomen and pelvis. AFB blood culture pending. GGT is normal. No evidence of biliary ductal dilatation on CT concerning for AIDS cholangitis. Right upper quadrant ultrasound not particularly helpful. Labs are not consistent with osteo malacia. 7. Vitamin-D deficiency: Start vitamin-D 2000 international units daily. Subjective: Patient is outside in the [facility]. I could see him out of the window of his room, but I did not go outside to find him. Per nurse, he is stable without any significant overnight events. Diarrhea is improving. Objective: Vancomycin 1 g IV q.12 hours day 5 Fluconazole 200 mg daily Descovy/Dolutegravir daily Bactrim DS daily Vancomycin 125 mg p.o. Four times daily day 08/05 Vital Signs Temp Pulse Resp BP Pulse Ox 36.5 C 88 15 94/65 L 91 L 09/24/17 08:00 09/24/17 08:00 09/24/17 08:00 09/24/17 08:00 09/24/17 08:00 Laboratory Results 09/19/17 04:58 09/24/17 04:40 09/23/17 09/24/17 09/25/17 05:59 05:59 05:59 Intake Total 3180 700 Output Total 1175 350 Balance 2005 350 ICD10 Worksheet Patient Problems: Problems Problem Status Onset AIDS Acute Left lower lobe pneumonia Acute Candidiasis of the esophagus Active Pneumocystosis jiroveci pneumonia Active Substance abuse Active Acquired immune deficiency syndrome (AIDS) Acute Cellulitis Acute Cellulitis and abscess of face Acute Infection in abdomen Acute Left leg cellulitis Acute Methicillin resistant Staphylococcus aureus infection Acute ~12/31/16 Noncompliance with medications Acute Sciatica Acute
[2017-09-24] MEDS: VANCOMYCIN 1 GM in NS 250 ML IV SCH ×2 (14:47→23:55)
[2017-09-24] MEDS: POTASSIUM Cl (KCl) 40 MEQ in NS 1,000 ML IV SCH (14:47)
[2017-09-24] MEDS: CHOLECALCIFEROL VIT D3 2,000 UNITS TAB/CAP PO SCH (14:51)
--- NOTE | 2017-09-24 17:13 | HOSPPROG ---
Hospitalist Progress Note Assessment/Plan: * Pneumonia -IV Vanco -recent MRSA bacteremia - unclear compliance with 4 weeks IV abx * HIV/AIDS -non-compliant with anti-retroviral tx in past -now agreeable - start anti-retroviral tx + PO Bactrim prophylaxis * [place] esophagitis -Diflucan * GERD - PPI + PO Carafate * Cdiff -PO Vanco * Proctitis with lin-anal ulcers -due to profuse diarrhea * Severe protein malnutrition * Continued IVDA * Etoh abuse -no evidence for ongoing Etoh abuse -wean benzos Subjective: No new complaints. Objective: Vital Signs Temp Pulse Resp BP Pulse Ox 36.5 C 88 15 94/65 L 91 L 09/24/17 08:00 09/24/17 08:00 09/24/17 08:00 09/24/17 08:00 09/24/17 08:00 Laboratory Results 09/19/17 04:58 09/24/17 04:40 09/23/17 09/24/17 09/25/17 05:59 05:59 05:59 Intake Total 3180 700 Output Total 1175 350 Balance 2004 350 Old chart reviewed - Has not had repeat hospitalization since leaving [facility] with MRSA bacteremia in May CT abd/pelvis - + proctitis - Physical Exam Constitutional: no apparent distress, appears nourished, not in pain, cachectic Cardiovascular: regular rate and rhythym, no murmur, rub, or gallop Respiratory: no respiratory distress, no rales or rhonchi, clear to auscultation Gastrointestinal: normoactive bowel sounds, soft, non-tender abdomen, no palpable masses Skin: no rashes or abrasions, no fluctuance, no induration Neurologic: AAOx3, sensation intact bilaterally Psychiatric: interacting appropriately, not anxious, not encephalopathic, thought process linear ICD10 Worksheet Patient Problems: Problems Problem Status Onset AIDS Acute Left lower lobe pneumonia Acute Candidiasis of the esophagus Active Pneumocystosis jiroveci pneumonia Active Substance abuse Active Acquired immune deficiency syndrome (AIDS) Acute Cellulitis Acute Cellulitis and abscess of face Acute Infection in abdomen Acute Left leg cellulitis Acute Methicillin resistant Staphylococcus aureus infection Acute ~12/31/16 Noncompliance with medications Acute Sciatica Acute
[2017-09-24] MEDS: SUCRALFATE 1 GM/10 ML UDCUP PO SCH (21:59)
[2017-09-25 05:06] LABS: PLATELET COUNT 303 10^3/uL (150-400)
[2017-09-25] MEDS: VANCOMYCIN 125 MG/2.5 ML UDL PO SCH ×4 (05:35→21:25)
[2017-09-25] MEDS: SULFAMETHOX/TMP 800/160 MG 1 TAB PO SCH (09:27)
[2017-09-25] MEDS: FOLIC ACID 1 MG TAB PO SCH (09:27)
[2017-09-25] MEDS: THIAMINE HCL 100 MG TAB PO SCH (09:27)
[2017-09-25] MEDS: FLUCONAZOLE 100 MG TAB PO SCH (09:27)
[2017-09-25] MEDS: PANTOPRAZOLE SODIUM 40 MG TAB PO SCH (09:27)
[2017-09-25] MEDS: CHOLECALCIFEROL VIT D3 2,000 UNITS TAB/CAP PO SCH (09:28)
[2017-09-25] MEDS: DESCOVY PO SCH (09:29)
[2017-09-25] MEDS: TIVICAY 50 MG PO SCH (09:30)
--- NOTE | 2017-09-25 09:56 | ASMTCMCOM ---
CM Note CM Note Notes: Chart reviewed for discharge planning purposes.46 year old male with weakness cleared per therapies for self care. He has known history of drug/substance abuse. He has been manipulating staff into taking him outside. His primary RN today set clear boundaries for the patient to abide by. He replied that he would do whatever he wanted. Still uncertain as what discharge plan may look like as he previously reported that his parents were evicting him from the housing he lives in now. CM to follow. Plan: Home independently Date Signed: 09/25/2017 09:55 AM Electronically Signed By:Shannan Root RN
--- NOTE | 2017-09-25 10:42 | PCMIDPN ---
Assessment/Plan: 1. Multilobar pneumonia, most prominent left lower lobe without effusion : Chest x-ray markedly better. Consider change to oral therapy in the next day or so. 2. End-stage AIDS: Continue Descovy and Dolutegravir. Continue Bactrim DS daily for Pneumocystis prophylaxis. 3. Esophageal candidiasis: Markedly better. Continue p.o. Fluconazole 200 mg daily times 14 days, with p.r.n. Clotrimazole troches thereafter. 4. Diarrhea with C diff positivity on stool PCR: Patient is being treated for C difficile colitis with vancomycin 125 mg p.o. Four times daily. Continue. Testing for microsporidia and Isospora pending. Also better. 5. Proctitis with surrounding perianal ulcerations: HSV PCR negative, as are GC chlamydia. Syphilis IgG negative. Query related to underlying C difficile colitis and irritation from diarrhea. 6. Elevated alkaline phosphatase: No obvious evidence of disseminated MAC on CT scan of the abdomen and pelvis. AFB blood culture pending. GGT is normal. No evidence of biliary ductal dilatation on CT concerning for AIDS cholangitis. Right upper quadrant ultrasound not particularly helpful. Labs are not consistent with osteo malacia. 7. Vitamin-D deficiency: Continue vitamin-D 2000 international units daily. 8. Disposition: The patient is deconditioned, and tells me that he is way too weak to walk. Will obtain physical therapy consult today, and had the patient promises me that he will get up and walk with them. No wheelchairs! Hopefully will be ready to go home in the next 24-48 hours. 09/25/17 10:39 Subjective: In good spirits. Tells me he is eating yogurt, which is helping his diarrhea. Diarrhea is also better. Told him that his chest x-ray is significantly improved. He was happy to hear that. Tells me that he still feels weak, and would prefer to use a wheelchair to get around. I told him that is not acceptable, and he needs to work with physical therapy to get up and move. Objective: Vancomycin 1 g IV q.12 hours day 6 Fluconazole 200 mg p.o. Daily day 10/09 Descovy/Dolutegravir Bactrim DS daily Vancomycin 125 mg p.o. Four times daily day 09/05 Afebrile Vital Signs Temp Pulse Resp BP Pulse Ox 36.6 C 98 12 95/73 L 88 L 04/30/18 08:00 09/25/17 08:00 09/25/17 08:00 09/25/17 08:00 09/25/17 08:00 Laboratory Results 09/25/17 04:20 09/25/17 04:20 09/24/17 09/25/17 09/26/17 05:59 05:59 05:59 Intake Total 700 1450 Output Total 350 475 Balance 350 1450 -475 Stool for Isospora and microscope pretty of still pending - Physical Exam General Appearance: no apparent distress, cachetic EENT: pharynx normal, No thrush Respiratory: lungs clear Cardiac/Chest: regular rate, rhythm Abdomen: non-tender, soft Skin: No rash ICD10 Worksheet Patient Problems: Problems Problem Status Onset AIDS Acute Left lower lobe pneumonia Acute Candidiasis of the esophagus Active Pneumocystosis jiroveci pneumonia Active Substance abuse Active Acquired immune deficiency syndrome (AIDS) Acute Cellulitis Acute Cellulitis and abscess of face Acute Infection in abdomen Acute Left leg cellulitis Acute Methicillin resistant Staphylococcus aureus infection Acute ~12/31/16 Noncompliance with medications Acute Sciatica Acute
[2017-09-25] MEDS: MULTIVITAMINS 1 EACH TAB PO SCH (11:37)
[2017-09-25] MEDS: VANCOMYCIN 1 GM in NS 250 ML IV SCH (11:37)
--- NOTE | 2017-09-25 17:30 | HOSPPROG ---
Hospitalist Progress Note Assessment/Plan: * Pneumonia -IV Vanco -per ID change to PO antibiotics 1-2 days * HIV/AIDS -non-compliant with anti-retroviral tx in past -now agreeable - start anti-retroviral tx + PO Bactrim prophylaxis * [place] esophagitis -Diflucan * GERD - PPI + PO Carafate * Cdiff -PO Vanco * Proctitis with lin-anal ulcers -due to profuse diarrhea * Severe protein malnutrition * Continued IVDA * Etoh abuse -no evidence for ongoing Etoh abuse -wean benzos * Homicidal ideation -calling step-mom and threatening her -independently told me he was concerned he would kill her when he left -M1 hold Subjective: Has a trust set up by dad many years ago that guarantees his housing. Step mom now POA of affairs with his dad's health decline and he states she is taking his housing away. Blames mikhail curtis for suicide of his brother many years ago. States "I'm afraid that when I leave here I'm going to kill her" Objective: Vital Signs Temp Pulse Resp BP Pulse Ox 36.6 C 104 H 18 106/74 88 L 09/25/17 14:52 09/25/17 14:52 09/25/17 14:52 09/25/17 14:52 09/25/17 14:52 Laboratory Results 09/25/17 04:20 09/25/17 04:20 09/24/17 09/25/17 09/26/17 05:59 05:59 05:59 Intake Total 700 1450 Output Total 350 475 Balance 350 1450 -475 - Time Spent With Patient Time Spent with Patient: greater than 35 minutes Time Spent with Patient: Greater than 35 minutes spent on this patients care, greater than 50% of time spent counseling, educating, and coordinating care regarding the above mentioned plan. - Physical Exam Constitutional: no apparent distress, not in pain, chronically ill appearing, unkempt, cachectic Cardiovascular: regular rate and rhythym, no murmur, rub, or gallop Respiratory: no respiratory distress, no rales or rhonchi, clear to auscultation Gastrointestinal: normoactive bowel sounds, soft, non-tender abdomen, no palpable masses Skin: no rashes or abrasions, no fluctuance, no induration Neurologic: AAOx3, sensation intact bilaterally Psychiatric: interacting appropriately, not encephalopathic, thought process linear, agitated ICD10 Worksheet Patient Problems: Problems Problem Status Onset AIDS Acute Left lower lobe pneumonia Acute Candidiasis of the esophagus Active Pneumocystosis jiroveci pneumonia Active Substance abuse Active Acquired immune deficiency syndrome (AIDS) Acute Cellulitis Acute Cellulitis and abscess of face Acute Infection in abdomen Acute Left leg cellulitis Acute Methicillin resistant Staphylococcus aureus infection Acute ~12/31/16 Noncompliance with medications Acute Sciatica Acute
--- NOTE | 2017-09-25 18:05 | ASMTCMCOM ---
CM Note CM Note Notes: Patient told MD he was going to kill his parents. Placed on M1 hold. Call to Camila at [facility]. Requesting eval. She will speak to psychiatry tomorrow. CM to follow. Date Signed: 09/25/2017 06:05 PM Electronically Signed By:Shannan Root RN
[2017-09-25] MEDS ORDERED: LORazepam 2 MG/ML INJ IVP PRN (19:32)
[2017-09-25] MEDS: chlordiazePOXIDE 25 MG CAP PO PRN (21:25)
[2017-09-25] MEDS: SUCRALFATE 1 GM/10 ML UDCUP PO SCH (21:25)
[2017-09-26] MEDS: VANCOMYCIN 1 GM in NS 250 ML IV SCH ×3 (01:00→20:30)
[2017-09-26] MEDS: chlordiazePOXIDE 25 MG CAP PO PRN (02:14)
[2017-09-26] MEDS: VANCOMYCIN 125 MG/2.5 ML UDL PO SCH ×3 (04:55→16:03)
[2017-09-26] MEDS: THIAMINE HCL 100 MG TAB PO SCH (08:39)
[2017-09-26] MEDS: PANTOPRAZOLE SODIUM 40 MG TAB PO SCH (08:39)
[2017-09-26] MEDS: TIVICAY 50 MG PO SCH (08:39)
[2017-09-26] MEDS: MULTIVITAMINS 1 EACH TAB PO SCH (08:39)
[2017-09-26] MEDS: FOLIC ACID 1 MG TAB PO SCH (08:39)
[2017-09-26] MEDS: CHOLECALCIFEROL VIT D3 2,000 UNITS TAB/CAP PO SCH (08:39)
[2017-09-26] MEDS: FLUCONAZOLE 100 MG TAB PO SCH (08:39)
[2017-09-26] MEDS: DESCOVY PO SCH (08:40)
--- NOTE | 2017-09-26 08:54 | PCMIDPN ---
Assessment/Plan: 1. Multilobar pneumonia, most prominent left lower lobe without effusion : Chest x-ray markedly better. Consider change to oral therapy (doxycycline) in a day or so. Continue vancomycin for now. 2. End-stage AIDS: Continue Descovy and Dolutegravir. Continue Bactrim DS daily for Pneumocystis prophylaxis. 3. Esophageal candidiasis: Markedly better. Continue p.o. Fluconazole 200 mg daily times 14 days, with p.r.n. Clotrimazole troches thereafter. 4. Diarrhea with C diff positivity on stool PCR: Patient is being treated for C difficile colitis with vancomycin 125 mg p.o. Four times daily. Continue. Testing for microsporidia negative, Isospora pending. Doubt this is playing a role. 5. Proctitis with surrounding perianal ulcerations: HSV PCR negative, as are GC chlamydia. Syphilis IgG negative. Query related to underlying C difficile colitis and irritation from diarrhea. 6. Elevated alkaline phosphatase: No obvious evidence of disseminated MAC on CT scan of the abdomen and pelvis. AFB blood culture pending. GGT is normal. No evidence of biliary ductal dilatation on CT concerning for AIDS cholangitis. Right upper quadrant ultrasound not particularly helpful. Labs are not consistent with osteo malacia. 7. Vitamin-D deficiency: Continue vitamin-D 2000 international units daily. 8. Disposition: Have asked social work to help me with his housing issues, as the patient states that he is going to be evicted today. Hopefully we can get Psychiatry to come down and talk to him today. Given my conversation with him this morning , I do not feel that he would hurt anyone. Subjective: Patient transferred to the intensive care unit not for medical issues, but for psychiatric issues. He is now back on M1 hold secondary to threatening to kill his stepmother. When I asked him about it this morning, the patient states "I am a Restorationism, I would not kill anyone." Very upset with his stepmother. Regarding his health issues, his diarrhea has practically resolved. He is no longer requiring oxygen. He is starting to ambulate with physical therapy, and feels more energetic. Objective: Vital Signs Temp Pulse Resp BP Pulse Ox 36.5 C 79 16 92/52 L 93 09/26/17 07:25 09/26/17 07:25 09/26/17 07:25 09/26/17 07:25 09/26/17 07:25 Laboratory Results 09/25/17 04:20 09/25/17 04:20 09/25/17 09/26/17 09/27/17 05:59 05:59 05:59 Intake Total 1450 3250 Output Total 475 Balance 1450 2775 - Physical Exam General Appearance: no apparent distress, cachetic EENT: pharynx normal, No thrush Skin: No rash ICD10 Worksheet Patient Problems: Problems Problem Status Onset AIDS Acute Left lower lobe pneumonia Acute Candidiasis of the esophagus Active Pneumocystosis jiroveci pneumonia Active Substance abuse Active Acquired immune deficiency syndrome (AIDS) Acute Cellulitis Acute Cellulitis and abscess of face Acute Infection in abdomen Acute Left leg cellulitis Acute Methicillin resistant Staphylococcus aureus infection Acute ~12/31/16 Noncompliance with medications Acute Sciatica Acute
[2017-09-26] MEDS: SULFAMETHOX/TMP 800/160 MG 1 TAB PO SCH (09:20)
--- NOTE | 2017-09-26 15:11 | ASMTCMCOM ---
CM Note CM Note Notes: Spoke to patient who believes that the apartment building that he lives in belongs to him through a trust set up by his father 12 yrs ago. Patient reports that his father has dementia and feels that his step mother has taken over control of his father's decision making including the trust. This CM filed an Adult Protection Report, and spoke with Mia Johns about the situation. Gave patient the phone# for [employer] [phone]. Step mother has told him that he no longer can return to his apartment. Talking to stepmother Misty, , she reports that patient has never supported himself, that she and his father own the apartment and want to sell it because it has become a liability. Patient trashes the property, they have lost 4 tenants in the 2 [address]joining apartments and can't afford to keep it running. Mother suggested patient go to [facility], a respite program through [facility]. Lft message for Sasha Blake, at the [facility]. Also left message for Moustapha Barreto [phone] to see if she might have respite housing ideas. Date Signed: 09/26/2017 03:11 PM Electronically Signed By:Erin Smallwood LCSW
--- NOTE | 2017-09-26 15:13 | HOSPPROG ---
Hospitalist Progress Note Assessment/Plan: * Pneumonia -IV Vanco -per ID change to PO antibiotics 1-2 days * HIV/AIDS -non-compliant with anti-retroviral tx in past -now agreeable - start anti-retroviral tx + PO Bactrim prophylaxis * [place] esophagitis -Diflucan * GERD - PPI + PO Carafate * Cdiff -PO Vanco * Proctitis with lin-anal ulcers -due to profuse diarrhea * Severe protein malnutrition * Continued IVDA * Etoh abuse -no evidence for ongoing Etoh abuse -wean benzos * Homicidal ideation -calling step-mom and threatening her -independently told me he was concerned he would kill her when he left -M1 hold Subjective: case d/w dr ramirez. afebrile Objective: Vital Signs Temp Pulse Resp BP Pulse Ox 36.5 C 79 16 92/52 L 93 09/26/17 07:25 09/26/17 07:25 09/26/17 07:25 09/26/17 07:25 09/26/17 07:25 Microbiology 09/19/17 14:46 Mycobacterial Smear (PARUL) - Final Blood Laboratory Results 09/25/17 04:20 09/25/17 04:20 09/25/17 09/26/17 09/27/17 05:59 05:59 05:59 Intake Total 1450 3250 480 Output Total 475 550 Balance 1450 2775 -70 - Physical Exam Constitutional: no apparent distress, appears nourished Eyes: PERRL, anicteric sclera Ears, Nose, Mouth, Throat: moist mucous membranes, ears appear normal Cardiovascular: regular rate and rhythym, no murmur, rub, or gallop Respiratory: no respiratory distress, no rales or rhonchi Gastrointestinal: normoactive bowel sounds, soft, non-tender abdomen Genitourinary: no bladder fullness, No caldwell in urethra Skin: warm, normal color Musculoskeletal: no muscle tenderness Neurologic: AAOx3 ICD10 Worksheet Patient Problems: Problems Problem Status Onset AIDS Acute Left lower lobe pneumonia Acute Candidiasis of the esophagus Active Pneumocystosis jiroveci pneumonia Active Substance abuse Active Acquired immune deficiency syndrome (AIDS) Acute Cellulitis Acute Cellulitis and abscess of face Acute Infection in abdomen Acute Left leg cellulitis Acute Methicillin resistant Staphylococcus aureus infection Acute ~12/31/16 Noncompliance with medications Acute Sciatica Acute
[2017-09-27] MEDS: VANCOMYCIN 125 MG/2.5 ML UDL PO SCH ×5 (00:38→16:52)
[2017-09-27] MEDS: SUCRALFATE 1 GM/10 ML UDCUP PO SCH (00:40)
[2017-09-27] MEDS: chlordiazePOXIDE 25 MG CAP PO PRN ×2 (01:24→09:49)
[2017-09-27] MEDS: LORazepam 1 MG/0.5 ML UDSYR PO PRN ×2 (01:30→09:48)
[2017-09-27] MEDS ORDERED: QUEtiapine FUMARATE 25 MG TAB ONE (01:33)
[2017-09-27] MEDS ORDERED: QUEtiapine FUMARATE 25 MG TAB PO ONE (01:39)
[2017-09-27 08:19] VITALS: BP 101/67
--- NOTE | 2017-09-27 09:43 | PCMIDPN ---
Assessment/Plan: # AIDS --PCP ppx w Bactrim, sent Rx to [facility] --Descovy + dolutegravir --primary focus of my visit today was encouraging patient to continue to take TAF/FTC/dolutegravir # LLL PNA. s/p 7 days vancomycin # Esophageal candidiasis: on PO fluconazole x 14 days, sent Rx to [facility] # Cdiff, likely causing perirectal ulcerations and proctitis. Other etiologies of diarrhea r/o. Rectal ulcerations: GC/Chlamydia, HSV, syphilis neg --PO Vancomycin 125mg PO QID x 10 days --sent RX to [facility] today # h/o MRSA: Contact precautions. Recent MRSA bacteremia, blood culture remain negative meds fluconazole 200mg PO daily #12/09 Vancomycin 150mg PO QID #11/05 Bactrim DS 1 PO daily Microbiology 09/20/17 15:00 Stool Gastrointestinal Tract Panel (PCR) - Final Clostridium Difficile Detected 09/19/17 15:45 Sputum,: URF 09/19/17 14:46 Blood AFB: Pending 09/18/17 22:55 Blood cx: NGTD Subjective: Patient is extremely agitated about discharge plans. Stating "I want to blow up this place " denies abdominal pain, diarrhea Objective: Vital Signs Temp Pulse Resp BP Pulse Ox 36.3 C 88 16 101/67 97 09/27/17 08:14 09/27/17 08:14 09/27/17 08:14 09/27/17 08:14 09/27/17 08:14 Microbiology 09/19/17 14:46 Mycobacterial Smear (PARUL) - Final Blood Laboratory Results 09/25/17 04:20 09/25/17 04:20 09/26/17 09/27/17 09/28/17 05:59 05:59 05:59 Intake Total 3250 2230 Output Total 475 550 Balance 2775 1680 - Physical Exam General Appearance: alert, no apparent distress, thin EENT: pale conjunctiva Respiratory: No accessory muscle use Abdomen: non-tender, soft, other (Scaphoid) Skin: No rash Neuro/Psych: alert, other (Agitated) - Time Spent With Patient Time Spent with Patient: greater than 35 minutes (with coordination of care for discharge with Dr. Fuller and nursing staff) Time Spent with Patient: Greater than 35 minutes spent on this patients care, greater than 50% of time spent counseling, educating, and coordinating care regarding the above mentioned plan. ICD10 Worksheet Patient Problems: Problems Problem Status Onset AIDS Acute Left lower lobe pneumonia Acute Candidiasis of the esophagus Active Pneumocystosis jiroveci pneumonia Active Substance abuse Active Acquired immune deficiency syndrome (AIDS) Acute Cellulitis Acute Cellulitis and abscess of face Acute Infection in abdomen Acute Left leg cellulitis Acute Methicillin resistant Staphylococcus aureus infection Acute ~12/31/16 Noncompliance with medications Acute Sciatica Acute
[2017-09-27] MEDS: THIAMINE HCL 100 MG TAB PO SCH (09:49)
[2017-09-27] MEDS: FLUCONAZOLE 100 MG TAB PO SCH (09:49)
[2017-09-27] MEDS: PANTOPRAZOLE SODIUM 40 MG TAB PO SCH (09:49)
[2017-09-27] MEDS: TIVICAY 50 MG PO SCH (09:49)
[2017-09-27] MEDS: SULFAMETHOX/TMP 800/160 MG 1 TAB PO SCH (09:49)
[2017-09-27] MEDS: CHOLECALCIFEROL VIT D3 2,000 UNITS TAB/CAP PO SCH (09:50)
[2017-09-27] MEDS: FOLIC ACID 1 MG TAB PO SCH (09:50)
[2017-09-27] MEDS: DESCOVY PO SCH (09:50)
[2017-09-27] MEDS: MULTIVITAMINS 1 EACH TAB PO SCH (09:50)
[2017-09-27 13:57] LABS: %CD3 (T CELLS) 71 % (58-86); %CD8 (T CELLS) 66 % (13-40); 4/8 RATIO 0.1 (>=0.9); CD3 (T CELLS) 1000 cells/mcL (550-2202); CD4 (T CELLS) 59 cells/mcL (365-1437); CD45 TOTAL LYMPH COUNT 1.41 thou/mcL (0.82-2.84); CD8 (T CELLS) 928 cells/mcL (145-846)
--- NOTE | 2017-09-27 16:19 | HOSPPROG ---
Hospitalist Progress Note Assessment/Plan: * Pneumonia -IV Vanco -per ID change to PO antibiotics 1-2 days * HIV/AIDS -non-compliant with anti-retroviral tx in past -now agreeable - start anti-retroviral tx + PO Bactrim prophylaxis * [place] esophagitis -Diflucan * GERD - PPI + PO Carafate * Cdiff -PO Vanco * Proctitis with lin-anal ulcers -due to profuse diarrhea * Severe protein malnutrition * Continued IVDA * Etoh abuse -no evidence for ongoing Etoh abuse -wean benzos * Homicidal ideation seen by psych MD today, feels he is NOT suicidal step mother has been contacted by police M1 hold lifted home today > 30 minutes Subjective: psych does NOT think he is homicidal Objective: Vital Signs Temp Pulse Resp BP Pulse Ox 36.3 C 88 16 101/67 97 09/27/17 08:14 09/27/17 08:14 09/27/17 08:14 09/27/17 08:14 09/27/17 08:14 Microbiology 09/19/17 14:46 Mycobacterial Smear (PARUL) - Final Blood Laboratory Results 09/25/17 04:20 09/25/17 04:20 09/26/17 09/27/17 09/28/17 05:59 05:59 05:59 Intake Total 3250 2230 Output Total 475 550 Balance 2775 1680 - Physical Exam Constitutional: no apparent distress, cachectic ICD10 Worksheet Patient Problems: Problems Problem Status Onset AIDS Acute Left lower lobe pneumonia Acute Candidiasis of the esophagus Active Pneumocystosis jiroveci pneumonia Active Substance abuse Active Acquired immune deficiency syndrome (AIDS) Acute Cellulitis Acute Cellulitis and abscess of face Acute Infection in abdomen Acute Left leg cellulitis Acute Methicillin resistant Staphylococcus aureus infection Acute ~12/31/16 Noncompliance with medications Acute Sciatica Acute
--- NOTE | 2017-09-27 16:56 | ASMTCMCOM ---
CM Note CM Note Notes: Dr. Juarez, Psychiatrist with [facility] evaluated patient and determined patient is not homicidal and the M1 hold can be dropped. Patient will be d/c'ed today to home. He has some friends here who live with him and they will be going back to patient's residence with him. Patient's stepmother, Esther was notified via telephone at 4:30PM today that we are d/c'ing patient to home. [employer] was also notified today at 4:15PM patient is being d/c'ed today since they have been involved in this case and came last night to talk to the patient. No further needs. CM available should any other issues arise. Date Signed: 09/27/2017 04:55 PM Electronically Signed By:Celia Jones LCSW
--- NOTE | 2017-09-27 16:59 | PDCONSULT ---
Team Leader Note: PSYCHIATRY MD CONSULTATION Consult request by Dr. Fuller, also [facility], to evaluate need for continuation vs termination of M-1 placed 09/25/17 at 1640 due to voicing homicidal threats towards step-mother. [facility] evaluated patient yesterday, duty to warn was done by RN, and [employer] interviewed patient yesterday. Reviewed records , spoke with Dr. Fuller, nursing staff, [facility], case management (who spoke with step mother), Bisi Sky with hospital legal services, and 2 friends who live with and came to visit patient which included margy Bauer who has known patient for 20+years. Lengthy interview for evaluation today revealed no imminent danger to harm self or others. Patient consistently stated he had made that threat in anger, "I'm not gonna kill her... I want her to spend the rest of her life in detention, if I hurt her, I end up in detention and she wins...I make stupid f'ing comments, if I wanted to kill her, I would've already, it's not worth my effort" or consequences. "I have no motive to kill her, I will not get any inheritance and I'd go to detention". Denies any access to weapons except machete and baseball bat at his residence, which he would use to defend himself and the only way someone would get hurt is if they tried to physically harm him, or break in, "I'd have the 'Make My Day' law on my side". States he has some guns "at my father's house, in his gun safe" but does not know code or have simons or any access. Also states he has a community of friends for support if he were to end up homeless, but does not think this will happen and plans to use brewery pumper to fight to stay in his residence. Consistently denied any thoughts to harm himself and denied any history of attempts at self harm. States his brother and mother (who both suicided) "got it all wrong, they f*#'d up, they killed themselves" and patient reports suicide is against his beliefs, wears wedding band on L ring finger stating he is " to Wilfredo Padilla". -Okay to drop M-1 hold. CM will notify step mother and [employer] of patient discharge today. -full dictated consult to follow.
--- NOTE | 2017-09-27 17:44 | GDS ---
[f rep st] DISCHARGE SUMMARY DISCHARGE DIAGNOSES: 1. Acquired immune deficiency syndrome. 2. Heroin addiction. 3. Clostridium difficile. 4. Homicidal ideation; no longer felt homicidal by Psychiatry. 5. Left lower lobe pneumonia, status post vancomycin, Zosyn, and Bactrim. CONSULTS: Infectious Disease. Please see admission history and physical by Dr. Zaria Haskins. Patient presented with cough and shor tness of breath. Found to have left lower lobe pneumonia. Started on broad-spectrum antibiotics. Doreen lopez was doing relatively well. Seen by Infectious Disease became amenable to beginning anti-retroviral therapy. During hospital stay, it is apparent that he has had some financial disagreements with his stepmother , who has become the [id number] over his trust fund. Without too much detail, it sounds like she may be trying to take this away. He expressed homicidal ideation toward her. Given the motive a nd his history of noncompliance and unstable behavior, an M1 hold was placed. The patient was seen b y Psychiatry, who felt that he was not homicidal. The police had been summoned. They spoke with the patient. They spoke with the stepmother, and the patient is felt to be not homicidal, and he is the refore discharged home. Infectious Disease has kindly called in prescriptions for p.o. vancomycin fo r C diff as well as anti-retroviral therapy and Bactrim. /[id number]/MODL
== END 2017-09-27 18:05 | disposition home or self-care (01) | DRG 893 ==
LOC: EEVIPCON 23:38 → OBSVTOIN 09-19 00:19 → F1N 09-19 00:41 → F2N 09-19 03:07 → F1N 09-21 15:16 → F2N 09-25 19:44
PROVIDERS: ADMIT Family Medicine; ATTEND Family Medicine
DX: B20 Human immunodeficiency virus [HIV] disease (principal); J18.1 Lobar pneumonia, unspecified organism; E43 Unspecified severe protein-calorie malnutrition; F11.20 Opioid dependence, uncomplicated; K51.20 Ulcerative (chronic) proctitis without complications; A04.72 Enterocolitis due to Clostridium difficile, not specified as recurrent; B37.81 Candidal esophagitis; Z91.19 Patient's noncompliance with other medical treatment and regimen; F10.10 Alcohol abuse, uncomplicated; D63.8 Anemia in other chronic diseases classified elsewhere; E87.6 Hypokalemia; F14.90 Cocaine use, unspecified, uncomplicated; E55.9 Vitamin D deficiency, unspecified; K21.0 Gastro-esophageal reflux disease with esophagitis; R12 Heartburn; Z68.1 Body mass index [BMI] 19.9 or less, adult; Z23 Encounter for immunization; Z86.14 Personal history of Methicillin resistant Staphylococcus aureus infection
CPT/HCPCS: 80305; 86359-90; 86360-90; 87385-90; 87497-90; 87529-90; 87536-90; 96374; 97116-GP; 97161-GP; 97164-GP; 97165-GO; 97168-GO; 97530-GP; G0009; G0378; G0480; J0610; J1450; J2060; J2405; J2543; J3370; J3475; J3480; Q9967

== ENCOUNTER 2017-10-08 03:09 | Emergency (ER) | payer BC, MEDICAID ==
--- NOTE | 2017-10-08 03:55 | EDPHY ---
H & P Stated Complaint: bump on underside of L knee, concerned for blood clot Time Seen by Provider: 10/08/17 03:55 HPI/ROS: HPI CHIEF COMPLAINT: Redness behind left calf HISTORY OF PRESENT ILLNESS: Patient is a 38-year-old male, history of HIV, MRSA , PE, stomach CA, presents emergency room with an area of redness and swelling in the left posterior calf. Denies IV drug use. He noticed this over the past 2-3 days. Gotten slightly more painful. Decided come the emergency room for evaluation. Denies any other lesions. Denies fever. Able to ambulate well. No deep leg pain. Pain is located superficially over the left posterior calf redness area. Past Medical History: HIV, MRSA, PE, stomach CA Past Surgical History: No recent surgery Social History: Denies current use of drugs alcohol tobacco. Family History: Noncontributory ROS REVIEW OF SYSTEMS: A comprehensive 10 point review of systems is otherwise negative aside from elements mentioned in the history of present illness. Exam Constitutional appears nontoxic no acute distress, triage nursing summary reviewed, vital signs reviewed, awake/alert. Eyes normal conjunctivae and sclera, EOMI, PERRLA. HENT normal inspection, atraumatic, moist mucus membranes, no epistaxis, neck supple/ no meningismus, no raccoon eyes. Respiratory clear to auscultation bilaterally, normal breath sounds, no respiratory distress, no wheezing. Cardiovascular rate normal, regular rhythm, no murmur, no edema, distal pulses normal. Gastrointestinal soft, non-tender, no rebound, no guarding, normal bowel sounds, no distension, no pulsatile mass. Genitourinary no CVA tenderness. Musculoskeletal no midline vertebral tenderness, full range of motion, no calf swelling, no tenderness of extremities, no meningismus, good pulses, neurovascularly intact. Skin left posterior calf there is a 5 cm x 3 cm area of erythema with a slight area center of induration, no abscess, no fluctuance, no palpable cord, pink, warm, & dry, no rash, skin atraumatic. Neurologic awake, alert and oriented x 3, AAOx3, moves all 4 extremities equally, motor intact, sensory intact, CN II-XII intact, normal cerebellar, normal vision, normal speech. Psychiatric normal mood/affect. Heme/Lymph/Immune no lymphadenopathy. Differential Diagnosis: Includes but is not limited to in a particular order cellulitis, strep infection, staph infection, abscess. Medical Decision Making: Plan for this patient recommend warm compresses 2 to 3 times a day, recommend antibiotic Bactrim. Return precautions discussed with the patient understands return emergency room if develops worsening redness, swelling, pain, fever. Antibiotics as prescribed he should complete the entire course. Return precautions discussed. Re-evaluation: Source: Patient - Personal History Current Tetanus Diphtheria and Acellular Pertussis (TDAP): Yes - Medical/Surgical History Hx Asthma: No Hx Chronic Respiratory Disease: No Hx Diabetes: No Hx Cardiac Disease: No Hx Renal Disease: No Hx Cirrhosis: No Hx Alcoholism: Yes Hx HIV/AIDS: Yes Hx Splenectomy or Spleen Trauma: No Other PMH: PMHx: Stomach CANCER, ABD SURG, PE, HIV, AIDS, MRSA, sciatic nerve pain. - Social History Smoking Status: Current every day smoker Constitutional: Initial Vital Signs Temperature (C) 36.9 C 10/08/17 03:15 Heart Rate 96 10/08/17 03:15 Respiratory Rate 18 10/08/17 03:15 Blood Pressure 95/73 L 10/08/17 03:15 O2 Sat (%) 98 10/08/17 03:15 O2 Delivery Mode Room Air Allergies/Adverse Reactions: cefepime Allergy (Unknown, Verified 10/08/17 03:13) Unknown Cephalosporins Allergy (Unknown, Verified 10/08/17 03:13) Unknown tramadol Allergy (Unknown, Verified 10/08/17 03:13) cat dander Allergy (Verified 10/08/17 03:13) Home Medications: Medication Instructions Recorded Dolutegravir Sodium [Tivicay] 50 mg PO DAILY 09/27/17 Emtricitabine/Tenofov Alafenam 1 each PO DAILY 09/27/17 [Descovy 200-25 mg Tablet] Fluconazole [Diflucan (*)] 200 mg PO DAILY tab 09/27/17 Sulfamethox/Tmp 800/160 mg 1 ea PO DAILY tab 09/27/17 [Bactrim DS] Vancomycin [Vancocin Oral Liquid] 125 mg PO QID udl 09/27/17 Sulfamethox/Tmp 800/160 mg 1 tab PO BID@1000,2200 #14 tab 10/08/17 [Bactrim Ds] Departure - Departure Disposition: Home, Routine, Self-Care Clinical Impression: Cellulitis Qualifiers: Site of cellulitis: extremity Site of cellulitis of extremity: lower extremity Laterality: left Qualified Code(s): L03.116 - Cellulitis of left lower limb Condition: Good Instructions: Cellulitis (ED) Additional Instructions: 1. Warm compresses 2 to 3 times a day for 20 min. 2. Antibiotics as prescribed. 3. If this site gets more red, swollen painful return to the emergency room. Referrals: Johnathan Carey MD [Primary Care Provider] - As per Instructions Prescriptions: Sulfamethox/Tmp 800/160 mg [Bactrim Ds] 1 tab PO BID@1000,2200 #14 tab
[2017-10-08] MEDS ORDERED: SULFAMETHOX/TMP 800/160 MG 1 TAB PO ONE (04:39)
[2017-10-08 04:59] VITALS: BP 114/71
== END 2017-10-08 04:57 | disposition home or self-care (01) ==
DX: L03.116 Cellulitis of left lower limb (principal); B20 Human immunodeficiency virus [HIV] disease; F17.200 Nicotine dependence, unspecified, uncomplicated; Z85.028 Personal history of other malignant neoplasm of stomach

== ENCOUNTER → 2018-09-19 | Outpatient (CLI) | payer MEDICAID | LOC: FIMAGING 19:32 | PROVIDERS: ATTEND Physician Assistant | DX: M48.07 Spinal stenosis, lumbosacral region (principal); M48.061 Spinal stenosis, lumbar region without neurogenic claudication; M51.36 Other intervertebral disc degeneration, lumbar region; M46.97 Unspecified inflammatory spondylopathy, lumbosacral region; M46.96 Unspecified inflammatory spondylopathy, lumbar region; K76.89 Other specified diseases of liver; N28.1 Cyst of kidney, acquired ==